=== PATIENT | female | born 1940 | race Caucasian/White ===

== ENCOUNTER 2020-05-04 10:02 | Outpatient (REF) | payer MEDICARE, BC, SELFPAY ==
[2020-05-04 11:39] LABS: Hematocrit 43.1 % (37-47); Hemoglobin 13.8 g/dl (12.0-16.0); Mean Corpuscular Volume 93.7 fL (80-98); Mean Platelet Volume 10.6 fL (9.4-12.3); Platelet Count 212 X10*3/uL (160-400); Red Cell Distribution Width 12.7 % (11.0-16.0); White Blood Count 6.8 X10*3/uL (4.8-10.8)
[2020-05-04 11:45] LABS: Alanine Aminotransferase 15 U/L (0-31); Albumin Level 4.3 g/dL (3.5-5.0); Alkaline Phosphatase 53 U/L (39-117); Anion Gap 13 (12-20); Aspartate Amino Transferase 19 U/L (5-31); Bilirubin Total 0.7 mg/dL (0.0-1.0); Blood Urea Nitrogen 14 mg/dL (9-16); Calcium 9.2 mg/dL (8.4-10.2); Carbon Dioxide 29 mmol/L (22-29); Chloride 102 mmol/L (96-108); Estimated Glomerular Filt Rate > 60; Glucose Fasting 93 mg/dL (60-99); Iron 103 mcg/dL (30-160); Percent Iron Saturation 31 % (15-50); Potassium 4.4 mmol/l (3.3-5.1); Sodium 140 mmol/L (135-145); Total Iron Binding Capacity 332 mcg/dL (228-428); Total Protein 7.6 g/dL (6.5-8.0); Unsaturated Iron Binding 229 ug/dL
[2020-05-04 12:07] LABS: Thyroid Stimulating Hormone 1.45 mIU/mL (0.32-4.0); Vitamin D 25-OH Total 39.4 ng/mL (>30)
[2020-05-04 12:35] LABS: Folate > 20.0 ng/mL (> or = 4.0); Vitamin B12 1060 pg/mL (200-900)
== END 2020-05-04 10:03 | disposition home or self-care (01) ==
LOC: HO.HMGCLDS 10:02
PROVIDERS: PCP Internal Medicine; Visit Provider Internal Medicine
DX: M81.0 Age-related osteoporosis without current pathological fracture (principal); R53.83 Other fatigue; L65.9 Nonscarring hair loss, unspecified; R00.2 Palpitations
CPT/HCPCS: 36415; 80053; 82306; 82607; 82746; 83540; 84443; 85027

== ENCOUNTER 2021-09-03 13:26 | Outpatient (REF) | payer MEDICARE, BC, SELFPAY ==
[2021-09-03 13:43] LABS: Appearance Urine HAZY; Color Urine YELLOW; Glucose Urine UA NEG (NEG); Leukocyte Esterase Urine 1+ (NEG); Nitrite Urine NEG (NEG); Specific Gravity - Urine 1.025 (1.005-1.025); UACC Culture Trigger YES; Urine Blood 3+ (NEG); Urine Ketones NEG (NEG); Urine Protein 1+ MG/DL (NEG-TRACE)
[2021-09-03 13:50] LABS: RBC Urine 30-49 /HPF (0)
[2021-09-03 13:51] LABS: Bacteria Urine 2+ /LPF; Mucus Urine 1+ /LPF; Squamous Epithelial Cell Urine TRACE /LPF
== END 2021-09-03 13:27 | disposition home or self-care (01) ==
LOC: HO.LNP 13:26
PROVIDERS: Visit Provider Physician Assistant Medical
DX: R30.0 Dysuria (principal)
CPT/HCPCS: 81001; 87086; 87088; 87186

== ENCOUNTER 2021-12-13 11:22 | Outpatient (REF) | payer MEDICARE, BC, SELFPAY ==
--- NOTE | ~2021-12-13 | US_ITS ---
EXAMINATION: US PELVIS LIMITED (BLADDER) CLINICAL INFORMATION: Other difficulties with micturition. Slow urinary stream. COMPARISON: None TECHNIQUE: Real-time imaging of the bladder. FINDINGS: BLADDER: Well distended with echogenic floating debris in the bladder. Bilateral ureteral jets are demonstrated. Prevoid bladder volume is 492 mL. Postvoid bladder volume is 41.8 mL. US/US bladder IMPRESSION: Distended bladder with echogenic floating debris. Small postvoid bladder volume measuring 41.8 mL.
== END 2021-12-13 11:23 | disposition home or self-care (01) ==
LOC: HO.HMGCX 11:22
PROVIDERS: PCP Internal Medicine; Visit Provider Internal Medicine
DX: R39.198 Other difficulties with micturition (principal)
CPT/HCPCS: 76857

== ENCOUNTER 2022-05-23 09:54 | Outpatient (REF) | payer MEDICARE, BC, SELFPAY ==
--- NOTE | ~2022-05-23 | XR_ITS ---
EXAMINATION: XR CHEST CLINICAL INFORMATION: Cough COMPARISON: None TECHNIQUE: 2 views of the chest were obtained. FINDINGS: The cardiac silhouette is upper normal in size. Hilar and mediastinal contours are unremarkable. The lungs are well inflated. There are increased bronchial markings suggestive of bronchitis. There are small areas of increased lung markings, particularly in the lateral right upper lung probably in the right upper lobe and adjacent to the left heart border questionable for areas of bronchopneumonia. There is no pleural effusion or pneumothorax. There are degenerative changes of the spine. XR/XR chest 2V IMPRESSION: Bronchitis and probable bronchopneumonia.
== END 2022-05-23 09:55 | disposition home or self-care (01) ==
LOC: HO.HMGCX 09:54
PROVIDERS: PCP Internal Medicine; Visit Provider Internal Medicine
DX: I35.1 Nonrheumatic aortic (valve) insufficiency (principal)
CPT/HCPCS: 71046

== ENCOUNTER 2022-06-12 10:43 | Outpatient (REF) | payer MEDICARE, BC, SELFPAY ==
--- NOTE | ~2022-06-12 | XR_ITS ---
EXAMINATION: XR CHEST CLINICAL INFORMATION: Bronchitis. COMPARISON: 05/23/2022 TECHNIQUE: 2 views of the chest were obtained. FINDINGS: Increased bronchial markings particularly in the right lung likely are chronic and reflective of chronic bronchial irritation. Scarring at the left base stable. I do not see evidence of an acute consolidation or pleural effusion. Heart size is normal with normal caliber pulmonary XR/XR chest 2V vessels. IMPRESSION: Stable patchy airspace opacities right midlung and left base. These are probably chronic.
== END 2022-06-12 10:44 | disposition home or self-care (01) ==
LOC: HO.HMGCX 10:43
PROVIDERS: PCP Internal Medicine; Visit Provider Internal Medicine
DX: J40 Bronchitis, not specified as acute or chronic (principal)
CPT/HCPCS: 71046

== ENCOUNTER → 2022-10-12 10:47 | Outpatient (BNVA) | payer MEDICARE, BC, SELFPAY | PROVIDERS: PCP Internal Medicine; Visit Provider Hospitalist | DX: R91.8 Other nonspecific abnormal finding of lung field (principal); J47.9 Bronchiectasis, uncomplicated; J84.9 Interstitial pulmonary disease, unspecified; M35.9 Systemic involvement of connective tissue, unspecified | CPT/HCPCS: 99202 ==

== ENCOUNTER 2022-10-24 09:47 | Outpatient (REF) | payer MEDICARE, BC, SELFPAY ==
--- NOTE | 2022-10-24 15:18 | PFT_ITS ---
Forced vital capacity 84%, FEV1 89%, FEV1/FVC ratio is 78. RCP68-58 107% and MVV is 99%. Post bronchodilator therapy there is slight improvement in CPB65-06. No other significant change. Total lung capacity 91%. Residual volume 95%. Diffusion capacity 64% but DL/VA is 84%, which is normal. CONCLUSION: Normal pulmonary function test. No evidence of obstructive or restrictive pulmonary disorder. MD LUIZ Horta/MODL / [id number]
== END 2022-10-24 09:48 | disposition home or self-care (01) ==
LOC: HO.RESP 09:47
PROVIDERS: PCP Internal Medicine; Visit Provider Hospitalist
DX: J47.9 Bronchiectasis, uncomplicated (principal); J84.9 Interstitial pulmonary disease, unspecified
CPT/HCPCS: 94060; 94727; 94729

== ENCOUNTER → 2022-12-14 13:17 | Outpatient (BNVA) | payer MEDICARE, BC, SELFPAY | PROVIDERS: PCP Internal Medicine; Visit Provider Hospitalist | DX: R91.8 Other nonspecific abnormal finding of lung field (principal); J84.9 Interstitial pulmonary disease, unspecified; J47.9 Bronchiectasis, uncomplicated; M35.9 Systemic involvement of connective tissue, unspecified; M35.02 Sjogren syndrome with lung involvement; R13.10 Dysphagia, unspecified | CPT/HCPCS: 99212 ==

== ENCOUNTER 2022-12-15 15:23 | Outpatient (REF) | payer MEDICARE, BC, SELFPAY | END 2022-12-15 15:24 | disposition home or self-care (01) | LOC: HO.LAB 15:23 | PROVIDERS: Visit Provider Internal Medicine | DX: N39.498 Other specified urinary incontinence (principal) | CPT/HCPCS: 87086; 87088; 87186 ==

== ENCOUNTER 2023-03-13 14:49 | Outpatient (AMB) | payer MEDICARE, BC, SELFPAY ==
[2023-03-13 14:58] VITALS: BP 138/72; TEMP 36.8; BMI 23.6
--- NOTE | 2023-03-13 14:58 | A.OFFVIS_ITS ---
Intake Vital Signs 03/13/23 14:58 Height 5 ft 6 in Weight 146 lb 6.191 oz BMI 23.6 BP 138/72 Blood Pressure Location Rt brachial Position Sitting Temp 98.2 F Temp Source Skin Intake Visit Reasons: SS Intake Note: New pt presents today to discuss Sjogren's. Disability Program Navigator Required: No Accompanied by: Spouse Allergies levofloxacin [Levaquin] Allergy (Unknown, Verified 03/13/23 14:59) rash Sulfa (Sulfonamide Antibiotics) Allergy (Unknown, Verified 03/13/23 14:59) very sick sulfacetamide Allergy (Unknown, Verified 03/13/23 14:59) very sick tetracycline Allergy (Unknown, Verified 03/13/23 14:59) rash Medication List - Last Reconciled 03/13/23 by Christina Oviedo MD ascorbate calcium (vitamin C) 500 mg PO DAILY bimatoprost 0.03% (Latisse) 1 appl topical DAILY biotin 1,000 mcg PO DAILY carvedilol 3.125 mg PO BID cholecalciferol (vitamin D3) 25 mcg PO DAILY cranberry extract 1,300 mg PO DAILY estradiol 10 mcg vaginal 2XW fluoride (sodium) 1.1% (PreviDent 5000 Booster Plus) 1 appl dental BEDTIME eyvgwvol-rsndd-efy 2-C-D3-andrew 750-30-1,000-1 ks-av-zhct-mg (Yzdufgtmgud-Erzvulpvafk-EUF + vitD) tabs PO hydroxychloroquine (Plaquenil) 200 mg PO DAILY 30 days mirabegron ER 25 mg PO DAILY nitrofurantoin monohyd/m-cryst 100 mg (Macrobid) 100 mg PO Q12H 7 days nitrofurantoin monohyd/m-cryst 100 mg (Macrobid) 100 mg PO Q12H 7 days omega-3 fatty acids 1,000 mg PO DAILY zoledronic cccs-oeviccpd-nwmav 5 mg/100 mL (Reclast) IV HPI HPI Comments History of Present Illness Details This is an 82-year-old female was referred for evaluation of a connective tissue disease. In 1975 patient was evaluated by channel cementer for a connective tissue disorder. At that time patient fevers, joint pains, skin rashes, Raynaud's. She was diagnosed with SLE. Over time her symptoms self- resolved except for the Raynaud's. Patient stated that she has been managing the Raynaud's conservatively. She denies ever having any digital tip ulcers. She is able to reverse the Raynaud's episodes with putting her hands under warm water. Usually it reverses in a few minutes. These episodes happen in the colder winter months. Not currently. She did not require any treatment. Over the years she had some narrowing of her mouth opening. In 2003 patient started having some difficulty swallowing. Large pills would get stuck. She had an EGD back then. Over the last 2 years patient has been having a cough, usually worse in the morning. Associated with minimal shortness of breath. She ultimately had a CT chest which showed some findings suggestive of pulmonary fibrosis. She was evaluated by pulmonology and referred to Rheumatology. Also patient has had dry eyes for many years. She uses lubricating ointment at night and uses refresh artificial tears once or twice a day. She does not recall ever being on Restasis. She denies any weight loss. Denies any joint pain. Denies any skin thickening. She is unaware of history of DVT/PE. Unaware of any family history of autoimmune rheumatic disease [facility] Medical History (Updated 03/13/23 @ 16:31 by Christina Oviedo MD) Abnormal mammogram of right breast Annual physical exam Anticardiolipin antibody syndrome Aortic insufficiency Atrophic vaginitis Bronchiectasis Connective tissue disease Decreased urine stream Dysphagia Fatigue H/O bone density study Hair loss History of mammogram ILD (interstitial lung disease) Mammogram normal Mitral regurgitation Normal colonoscopy Osteoporosis Palpitations Screening for viral disease Sjogren's syndrome with lung involvement Skin cancer, basal cell Thrombophlebitis Surgical History H/O colonoscopy No pertinent past surgical history Family History Father No problems noted. Mother No problems noted. Sister No problems noted. Social History Household Members: Spouse Housing: House Alcohol intake: current Alcohol intake frequency: does not drink Patient Tobacco Use Status: Never used Tobacco e-Cigarette/Vaping Use: Never Used Current occupational status: retired Cognitive needs: No Hearing needs: No Vision needs: Yes Female Reproductive History Menstrual Total pregnancies: 3 Ab induced: 0 Ab spontaneous: 0 Review of Systems Eyes Reports dry eyes ENT Reports dysphagia and Reports dry mouth Resp Reports cough GI Reports dysphagia Reports vaginal dryness Musc Denies arthralgias and Denies stiffness Skin/Breast Reports alopecia Psych Reports anxiety Physical Exam Vital Signs: Last Vital Signs Temp 98.2 F 03/13/23 14:58 BP 138/72 03/13/23 14:58 BMI result Body Mass Index 23.6 Const General: cooperative, healthy appearing and comfortable Nutritional Appearance: average body habitus Orientation/consciousness: patient oriented x3 Limitations: no limitations HEENT Other: Slightly reduced mouth opening Head: Yes normocephalic and Yes atraumatic Mouth: moist mucous membranes Resp Effort & Inspection: normal respiratory effort and able to speak in complete sentences Auscultation: diminished lung sounds bilateral in the lower lung mullen Cardio Rate: regular rate Rhythm: regular rhythm GI Inspection: No distended Palpation (GI): Soft to palpation Skin General skin exam: no rashes or lesions noted Neuro General: patient oriented x3 Extrem Other: No significant skin thickening Right ring finger with very mildly dilated loops. Bilateral big toe Nailfold capillaroscopy with dilated loops No active synovitis Results Reviewed Results Reviewed: Labs 10/2022? ESR 28 SHIVA 1-80 speckled Toñito normal CCP negative QuantiFERON negative SSA 6.9 ( 0.2-.0) SSB negative? Scl 70 -ve Immunoglobulins normal Barium swallow 01/2023? Impression:? Moderate esophageal dysmotility with significant internal esophageal residuals Small type 1 hiatal hernia with associated spontaneous gastroesophageal reflux CT chest without contrast 08/31 Impression 1. Mildly ectatic ascending aorta measuring up to 4.2 cm? 2. Scattered reticulonodular opacities bilaterally, measuring up to 1.8 cm as well as additional more discrete pulmonary nodules measuring up to 0.6 cm.? 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 Correlate with any clinical findings of active infections and/or prior CT imaging to assess for stability.?? In absence of any prior studies to show long-term stability, recommend follow-up CT chest in 3 months to assess for stability.?? 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 Conclusions 1. Normal left ventricular cavity size with mild, concentric left ventricular hypertrophy.? Normal systolic function and regional wall motion with an ejection fraction of 55-60%? 2. Normal right ventricular size and systolic function.?? 3. Trileaflet aortic valve with mildly thickened leaflets.? Mild to moderate aortic insufficiency.? No aortic stenosis.?? 4. Dilated aortic root and ascending aorta 4.2 cm as above.?? 5. Normal pulmonary artery systolic pressure DEXA 08/2019? AP spine T-score-0.5? Right Femoral neck T-score-2.4? Right Total hip T-score -1.2 Major osteoporosis fracture FRAX 30%? Hip fracture 20% Spirometry 10/2022? 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 Upon evaluation patient has reduced mouth opening, chronic dry eyes, intermittent dry mouth, Raynaud's, interstitial lung disease years, esophageal dysmotility. Labs showed a positive anti SSA in high titers Patient is currently evaluated by Pulmonary for an underlying lung infection. At this point patient is managing her Raynaud's with conservative measures. I advised patient to try to sleep more elevated to reduce the likelihood of silent aspiration. She is being followed up by Pulmonary for an underlying infection. Mycobacterial testing was done and is negative however no deep cultures were obtained. Will continue to monitor patient's lung function. Will continue to monitor patient along with pulmonary and can consider adding immunosuppressives such as CellCept for ild in the future. Check labs to evaluate for overlap with other autoimmune diseases. Follow-up in 3 months Plan I spent 62 minutes reviewing patient's chart, evaluating patient, ordering diagnostic workup, counseling patient and documenting in the chart Orders: Orders Protein Creatinine Ratio, Ur Today M34.9 - Systemic sclerosis, unspecified Complement C3 Today M34.9 - Systemic sclerosis, unspecified Complement C4 Today M34.9 - Systemic sclerosis, unspecified Anti DNA DS Antibody Today M34.9 - Systemic sclerosis, unspecified Anti Extractable Nuclear Ag Today M34.9 - Systemic sclerosis, unspecified Scleroderma 12 Panel Today M34.9 - Systemic sclerosis, unspecified UA w Microscopic Today M34.9 - Systemic sclerosis, unspecified Immunofixation Pnl, Serum Today M34.9 - Systemic sclerosis, unspecified Protein Electrophoresis, Serum Today M34.9 - Systemic sclerosis, unspecified Hepatitis A,B,C Profile Today Z11.59 - Encounter for screening for other viral diseases Beta-2 Glycoprotein Antibody Today D68.61 - Antiphospholipid syndrome Cardiolipin Antibodies Today D68.61 - Antiphospholipid syndrome Lupus Anticoagulant Panel Today D68.61 - Antiphospholipid syndrome Coding Level of Care Code New Pt Level 5 (20956) Diagnoses Overlap syndrome M35.1
== END 2023-03-13 15:55 | disposition home or self-care (01) ==
PROVIDERS: PCP Internal Medicine; Visit Provider Student in an Organized Health Care Education/Training Program
DX: M34.89 Other systemic sclerosis (principal); M35.1 Other overlap syndromes
CPT/HCPCS: 99205

== ENCOUNTER → 2023-03-13 14:49 | Outpatient (BNVA) | payer MEDICARE, BC, SELFPAY | PROVIDERS: PCP Internal Medicine; Visit Provider Student in an Organized Health Care Education/Training Program | DX: M35.1 Other overlap syndromes (principal) | CPT/HCPCS: 99202 ==

== ENCOUNTER 2023-03-16 13:35 | Outpatient (AMB) | payer MEDICARE, BC, SELFPAY ==
[2023-03-16 13:52] VITALS: PULSE 77; O2SAT 97; BMI 23.6
--- NOTE | 2023-03-16 13:52 | MHC.OFFVIS ---
Intake Vital Signs 03/16/23 13:52 Height 5 ft 6 in Weight 146 lb 6.191 oz BMI 23.6 Pulse 77 Pulse Source Pulse Oximeter Pulse Oximetry (%) 97 Oxygen Delivery Method Room Air Intake Visit Reasons: barium swallow follow up Allergies levofloxacin [Levaquin] Allergy (Unknown, Verified 03/16/23 13:54) rash Sulfa (Sulfonamide Antibiotics) Allergy (Unknown, Verified 03/16/23 13:54) very sick sulfacetamide Allergy (Unknown, Verified 03/16/23 13:54) very sick tetracycline Allergy (Unknown, Verified 03/16/23 13:54) rash HPI HPI Comments History of Present Illness Details The patient is an 82-year-old woman presenting with abnormal CT scan of the chest. The patient states many years ago she was evaluated at [facility] for a connective tissue disease. At the time was not clear if this was a mixed connective tissue condition. Her symptoms however improved dramatically and the patient did not require any more follow-up. More recently since 2020 the patient started developing worsening cough, nonproductive in nature in the morning mild in severity and subsequently in the evening she will notice and also some coughing. But he did really limit her respiratory capacity and her activities of daily living. She did follow-up with her primary care doctor and she did comment on the cough and she had an x-ray done back in May that was found to be abnormal with some bronchitis looking airways with peribronchial coughing and also some nodular densities. Patient had a repeat chest x-ray after treating her with antibiotics and showed some improvement of the peribronchial coughing, but, she still had the nodular densities in some interstitial changes. Therefore the patient underwent a CT scan of the chest at [facility] which we personally reviewed. The CT scan was pretty involved with significant reticulonodular densities in the periphery consistent with pulmonary fibrosis affecting her left lung more than her right lung in the briefly but also in the bases. In addition to this the patient had evidence of bronchiectasis tree in bud in addition to this nodular densities on her right lung more than the left. The etiology of these nodular densities some clear at this time although smoldering infections is in the differential. On further questioning she denies any mold in the house. She has had a CT in the past but nothing recent. She does have allergies to pollen sometimes. She has an allergy testing. The patient denies any other exposures to fumes or toxins although she lived in a house of smokers and had significant secondhand smoke to she left her home. She does complain of some difficulty swallowing. On her CT scan with his see dilations of the esophagus. She also has a small mouth in addition to Raynaud's phenomenon although the related to potential connective tissue conditions. She will require additional blood work and also a sputum culture for AFB to assess her for non tuberculosis mycobacterial infections. 12/14/2022 the patient is here for a pulmonary follow-up visit. The patient overall is doing about the same. Continues to have issues with cough. Typically nonproductive in nature worse in the morning. We were able to get a sputum for AFB which was negative. She could not get a sample good enough for sputum culture for Gram stain. Patient did have a repeat CT scan of the chest again demonstrating the pulmonary nodules and also the reticular changes consistent pulmonary fibrosis. No significant changes when compared to her CT scan from August. The patient also had blood work demonstrating the positive SHIVA and subsequently positive Sjogren's antibodies. With a positive SSA. The patient does complaint of dry eyes and dry mouth. She does not have a medical record administrator at this time. 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 Therefore is reasonable to start treating her with Plaquenil. At least there is no evidence of any ground-glass opacities or evidence of active disease. Some of the nodular densities however appear to be more infectious in appearance. Although she has a negative AFB culture this is usually not enough. We did talk about a bronchoscopy the patient is not interested at this time. Will plan to repeat the sputum culture. If the sputum culture continues to be negative if the patient does need to start immunosuppressive therapy then at point I would make a point to try to get deep cultures to rule out infection and avoid worsening smoldering infections on immunosuppressive therapy. In addition to this the patient is having a difficulty time swallowing. I heard the esophagus is a dilated on her CT scan again. This suggests some degree of dysmotility or achalasia. 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 03/16/2023 the patient is here for pulmonary follow-up visit. She continues to be about the same. Does have a nonproductive cough intermittently. Mild in severity. 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 Her barium swallows indeed it appeared that she had tertiary contractions but also the barium became stagnant midesophagus. She states that her GI doctor retired. Will send her to a GI doctor for the same practice since she already has records there. The patient also had sputum cultures sent for AFB and which was positive. She has non tuberculosis mycobacterial disease which goes along with her significant bronchiectasis. She also has interstitial lung disease noted on her CT scan her. May be multifactorial. The patient will be provided with an Acapella valve. Will help her to learn how to use it this will provide her some relief of mucous plugging and hopefully provide us with a better sample. Will hold off on treating the mycobacterial disease as of yet specially since be very difficult for the patient to tolerate the therapy. Will go ahead and request a 2nd sputum to confirm the findings and also will request a repeat CT scan to address her significant pulmonary nodules interstitial lung disease. [facility] Medical History (Updated 03/18/23 @ 23:39 by Danilo Farnsworth MD) Mycobacterial disease Anticardiolipin antibody syndrome Screening for viral disease Dysphagia Sjogren's syndrome with lung involvement Connective tissue disease Bronchiectasis ILD (interstitial lung disease) Decreased urine stream Annual physical exam Abnormal mammogram of right breast Mitral regurgitation Aortic insufficiency Normal colonoscopy Mammogram normal Hair loss Fatigue Skin cancer, basal cell History of mammogram H/O bone density study Osteoporosis Thrombophlebitis Atrophic vaginitis Palpitations Surgical History H/O colonoscopy No pertinent past surgical history Family History Father No problems noted. Mother No problems noted. Sister No problems noted. Social History Household Members: Spouse Housing: House Alcohol intake: current Alcohol intake frequency: does not drink Patient Tobacco Use Status: Never used Tobacco e-Cigarette/Vaping Use: Never Used Current occupational status: retired Cognitive needs: No Hearing needs: No Vision needs: Yes Review of Systems Const Denies fever(s) Eyes Reports dry eyes ENT Reports dysphagia and Denies mouth lesions Card Denies chest pain Resp Denies chest congestion, Reports cough and Denies wheezing GI Reports dysphagia Musc Reports myalgias and Reports stiffness Skin/Breast Denies rash Neuro Reports no additional complaints Endo Reports no additional complaints Valentino/Lymph Denies easy bleeding, Denies easy bruising and Denies lymphadenopathy Aller/Immun Denies wheezing Physical Exam Vital Signs: Last Vital Signs Pulse 77 03/16/23 13:52 Pulse Ox 97 03/16/23 13:52 Oxygen Delivery Method Room Air 03/16/23 13:52 BMI result Body Mass Index 23.6 Const General: no acute distress HEENT Head: Yes normal to inspection Ears: hearing grossly normal bilaterally Neck Neck: Yes no lymphadenopathy and Yes supple Chest Chest palpation & inspection: normal inspection of the chest Resp Effort & Inspection: normal respiratory effort Auscultation: diminished lung sounds Cardio Rhythm: regular rhythm Heart sounds: S1 normal heart sound present and S2 normal heart sound present GI Palpation (GI): Soft to palpation Auscultation: normal bowel sounds Skin General skin exam: no rashes or lesions noted Extrem General: Yes no clubbing, cyanosis or edema and Yes other (sclerodactaly) Assessment & Plan Assessment & Plan (1) Lung nodules: Comment: on chest CT 08/31 Code(s): R91.8 - Other nonspecific abnormal finding of lung field (2) Bronchiectasis: Code(s): J47.9 - Bronchiectasis, uncomplicated Qualifiers: Bronchiectasis type: uncomplicated Qualified Code(s): J47.9 - Bronchiectasis, uncomplicated (3) ILD (interstitial lung disease): Code(s): J84.9 - Interstitial pulmonary disease, unspecified (4) Connective tissue disease: Code(s): M35.9 - Systemic involvement of connective tissue, unspecified (5) Dysphagia: Code(s): R13.10 - Dysphagia, unspecified Qualifiers: Dysphagia type: esophageal phase Qualified Code(s): R13.19 - Other dysphagia (6) Sjogren's syndrome with lung involvement: Code(s): M35.02 - Sjogren syndrome with lung involvement (7) Mycobacterial disease: Code(s): A31.9 - Mycobacterial infection, unspecified Plan repeat Sputum for AFB and C&S GI referral F/U with Rheumatology CPT with acapella valve, I did request she call the office when she receives it to assist her repeat CT chest to assess progression F/U 3 months Orders: Orders CT chest wo IV con 06/06/23 R91.8 - Other nonspecific abnormal finding of lung field Sputum Cult + Gram stain 03/16/23 J47.9 - Bronchiectasis, uncomplicated Acid-fast Culture + Smear 03/16/23 J47.9 - Bronchiectasis, uncomplicated Referrals Gastroenterology Referral R13.19 - Other dysphagia Coding Level of Care Code Est Pt Level 5 (73739) Diagnoses Lung nodules R91.8 Bronchiectasis without complication J47.9 Bronchiectasis type: uncomplicated ILD (interstitial lung disease) J84.9 Connective tissue disease M35.9 Esophageal dysphagia R13.19 Dysphagia type: esophageal phase Sjogren's syndrome with lung involvement M35.02 Mycobacterial disease A31.9 Time Spent (min) 50
== END 2023-03-16 14:30 | disposition home or self-care (01) ==
PROVIDERS: PCP Internal Medicine; Visit Provider Hospitalist
DX: R91.8 Other nonspecific abnormal finding of lung field (principal); J47.9 Bronchiectasis, uncomplicated; J84.9 Interstitial pulmonary disease, unspecified; M35.9 Systemic involvement of connective tissue, unspecified
CPT/HCPCS: 99215

== ENCOUNTER → 2023-03-16 13:35 | Outpatient (BNVA) | payer MEDICARE, BC, SELFPAY | PROVIDERS: PCP Internal Medicine; Visit Provider Hospitalist | DX: R91.8 Other nonspecific abnormal finding of lung field (principal); J47.9 Bronchiectasis, uncomplicated; J84.9 Interstitial pulmonary disease, unspecified; R13.19 Other dysphagia; M35.02 Sjogren syndrome with lung involvement; A31.9 Mycobacterial infection, unspecified | CPT/HCPCS: 99212 ==

== ENCOUNTER 2023-04-26 13:27 | Outpatient (REF) | payer MEDICARE, BC, SELFPAY ==
--- NOTE | ~2023-04-26 | US_ITS ---
EXAMINATION: US VENOUS ULTRASOUND WITH DOPPLER LOWER EXTREMITY, RIGHT CLINICAL INFORMATION: Pain in right leg. COMPARISON: None available. TECHNIQUE: Ultrasound of the deep veins is performed from the hip to the calf with compression sonography and color and pulse Doppler assessment. Spectral analysis with color-flow imaging is performed. FINDINGS: There is normal venous compression and respiratory variation and augmented flow. The visualized common femoral vein, superficial femoral vein, profunda femoral vein, popliteal vein, and the trifurcation region shows no evidence of deep venous thrombosis. There is no significant popliteal fossa cyst. There is a partial clot seen in the right saphenous vein suggestive of superficial saphenous vein in the proximal and mid calf region suggestive of thrombophlebitis. If the patient's symptoms persist, followup ultrasound in 5 days 7 days might be of value to exclude proximal propagation from a non-visualized calf vein. US/US venous duplex LE RT IMPRESSION: 1. No DVT demonstrated in the right lower extremity. 2. Partial clot seen in the right saphenous vein in the proximal calf region. Thrombophlebitis in superficial saphenous vein in the proximal and midcalf region.
== END 2023-04-26 13:28 | disposition home or self-care (01) ==
LOC: HO.HMGCX 13:27
PROVIDERS: PCP Internal Medicine; Visit Provider Internal Medicine
DX: M79.604 Pain in right leg (principal)
CPT/HCPCS: 93971

== ENCOUNTER 2023-05-08 10:17 | Outpatient (AMB) | payer MEDICARE, BC, SELFPAY ==
[2023-05-08 11:08] VITALS: BP 118/60; PULSE 80; O2SAT 97
--- NOTE | 2023-05-08 11:08 | A.OFFVIS_ITS ---
Intake Vital Signs 05/08/23 11:08 BP 118/60 Blood Pressure Location Lt brachial Position Sitting Pulse 80 Pulse Source Pulse Oximeter Pulse Oximetry (%) 97 Oxygen Delivery Method Room Air Intake Visit Reasons: acapella teaching Allergies levofloxacin [Levaquin] Allergy (Unknown, Verified 05/08/23 11:08) rash Sulfa (Sulfonamide Antibiotics) Allergy (Unknown, Verified 05/08/23 11:08) very sick sulfacetamide Allergy (Unknown, Verified 05/08/23 11:08) very sick tetracycline Allergy (Unknown, Verified 05/08/23 11:08) rash Medication List - Last Reconciled 05/08/23 by Katelin Golden LPN ascorbate calcium (vitamin C) 500 mg PO DAILY bimatoprost 0.03% (Latisse) 1 appl topical DAILY biotin 1,000 mcg PO DAILY carvedilol 3.125 mg PO BID cholecalciferol (vitamin D3) 25 mcg PO DAILY cranberry extract 1,300 mg PO DAILY estradiol 10 mcg vaginal 2XW fluoride (sodium) 1.1% (PreviDent 5000 Booster Plus) 1 appl dental BEDTIME imharsxa-rlvgd-opa 2-C-D3-andrew 750-30-1,000-1 ko-ot-ouln-mg (Wbfurnphhrt-Vaoqdxahwho-LWK + vitD) tabs PO hydroxychloroquine (Plaquenil) 200 mg PO DAILY 30 days mirabegron ER 25 mg PO DAILY nitrofurantoin monohyd/m-cryst 100 mg (Macrobid) 100 mg PO Q12H 7 days nitrofurantoin monohyd/m-cryst 100 mg (Macrobid) 100 mg PO Q12H 7 days omega-3 fatty acids 1,000 mg PO DAILY zoledronic rqzl-zatoemzt-hazps 5 mg/100 mL (Reclast) IV HPI acapella teaching HPI Details Maureen Hale is in today for an Acapella teaching. She was instructed on how to use and clean the device as well as alfaro coughing to clear mucous. She states she does not have any questions at this time. [facility] Medical History (Updated 04/25/23 @ 14:15 by Yaneli James MD) Mycobacterial disease Anticardiolipin antibody syndrome Screening for viral disease Dysphagia Sjogren's syndrome with lung involvement Connective tissue disease Bronchiectasis ILD (interstitial lung disease) Decreased urine stream Annual physical exam Abnormal mammogram of right breast Mitral regurgitation Aortic insufficiency Normal colonoscopy Mammogram normal Hair loss Fatigue Skin cancer, basal cell History of mammogram H/O bone density study Osteoporosis Thrombophlebitis Atrophic vaginitis Palpitations Surgical History H/O colonoscopy No pertinent past surgical history Family History Father No problems noted. Mother No problems noted. Sister No problems noted. Social History Household Members: Spouse Housing: House Alcohol intake: current Alcohol intake frequency: does not drink Patient Tobacco Use Status: Never used Tobacco e-Cigarette/Vaping Use: Never Used Current occupational status: retired Cognitive needs: No Hearing needs: No Vision needs: Yes Assessment & Plan Assessment & Plan (1) Bronchiectasis: Code(s): J47.9 - Bronchiectasis, uncomplicated Qualifiers: Bronchiectasis type: uncomplicated Qualified Code(s): J47.9 - Bronchiectasis, uncomplicated Coding Level of Care Code Established Pt Est Pt Level 1 (44119) Patient Type Established Diagnoses Bronchiectasis without complication J47.9 Bronchiectasis type: uncomplicated Comment NURSE VISIT ONLY
== END 2023-05-08 11:06 | disposition home or self-care (01) ==
PROVIDERS: PCP Internal Medicine; Visit Provider Hospitalist
DX: J47.9 Bronchiectasis, uncomplicated (principal)

== ENCOUNTER → 2023-05-08 10:17 | Outpatient (BNVA) | payer MEDICARE, BC, SELFPAY | PROVIDERS: PCP Internal Medicine; Visit Provider Hospitalist | DX: J47.9 Bronchiectasis, uncomplicated (principal) | CPT/HCPCS: 99211 ==

== ENCOUNTER 2023-05-24 08:52 | Outpatient (AMB) | payer MEDICARE, BC, SELFPAY ==
--- NOTE | 2023-05-24 08:53 | A.OFFVIS_ITS ---
Intake Vital Signs 05/24/23 08:57 Weight 143 lb BP 114/70 Blood Pressure Location Lt brachial Position Sitting Intake Visit Reasons: SWV G0439 Allergies levofloxacin [Levaquin] Allergy (Unknown, Verified 05/24/23 08:59) rash Sulfa (Sulfonamide Antibiotics) Allergy (Unknown, Verified 05/24/23 08:59) very sick sulfacetamide Allergy (Unknown, Verified 05/24/23 08:59) very sick tetracycline Allergy (Unknown, Verified 05/24/23 08:59) rash Medication List - Last Reconciled 05/24/23 by Yaneli James MD ascorbate calcium (vitamin C) 500 mg PO DAILY bimatoprost 0.03% (Latisse) 1 appl topical DAILY carvedilol 3.125 mg PO BID cholecalciferol (vitamin D3) 25 mcg PO DAILY cranberry extract 1,300 mg PO DAILY estradiol 10 mcg vaginal 2XW fluoride (sodium) 1.1% (PreviDent 5000 Booster Plus) 1 appl dental BEDTIME quzzppgg-xhctv-yso 2-C-D3-andrew 750-30-1,000-1 ou-ha-laur-mg (Glucosamine -Chondroitin-MSM + vitD) tabs PO mirabegron ER 25 mg PO DAILY omega-3 fatty acids 1,000 mg PO DAILY Do you need a note to return to daycare/school/sports/work: No HPI V G0439 HPI Details Initiated the conversation about Advanced Directives. Advanced Directives help? patients prepare for current and future decisions about their medical treatment? and place of care. Discussed with patient that it is a process where a patients? current condition and prognosis are reviewed, their wishes for information? regarding their illness are elicited, and likely medical dilemmas are presented? and options discussed. The form can be amended as needed, reviewed yearly and? make changes as needed IPPE/AWV ? year old presents? for her ? Annual? Wellness Visit, initial visit.? Medical / Social History Reviewed? Past Medical History ?Yes? . ? [facility]? of Care / Care Team list updated ?Yes . ? Surgical/Hospitalization? History ?Yes . ? Current Medications? (including OTC and supplements) ?Yes . ? Family History ?Yes? . ? Tobacco? Control form ?Yes . ? AUDIT-C (Alcohol use) form? ?Yes . ? Illicit drug use in Social? History ?Yes . ? Current diagnosis of? depression? ?No ? Appropriate PHQ2/PHQ9? completed ?Yes . ? Data entered by ?Medical? Injection Operator and reviewed by provider ? Fall Risk ? Fall? History? Have you had any falls with? injury in the past year? ?No . ? Have you had two or more? falls in the past year? ?No . ? Fall Risk Assessment: ?No? falls in the past year . ? HRA filled out by? the patient, reviewed by Provider and scanned. ? IPPE/AWV ? Balance? Romberg? ?Yes . ? Tandem? walk ?Yes . ? Walk and? Turn ?Yes . ? Rise from? sit to stand ?Yes . ?Vision? Corrective? lens ?Yes ? Vision? screen ? Up-to-date, has an appointment [] for vision? screening and glaucoma screening ?Hearing? Whisper? test ?pass .? Initiated the conversation about Advanced Directives. Advanced Directives help? patients prepare for current and future decisions about their medical treatment? and place of care. Discussed with patient that it is a process where a patients? current condition and prognosis are reviewed, their wishes for information? regarding their illness are elicited, and likely medical dilemmas are presented? and options discussed. The form can be amended as needed, reviewed yearly and? make changes as needed Written? Plan?Completed. See Patient? Documents. [facility] Medical History (Updated 05/24/23 @ 15:11 by Yaneli James MD) Mycobacterial disease Screening for viral disease Dysphagia Bronchiectasis ILD (interstitial lung disease) Annual physical exam Abnormal mammogram of right breast Mitral regurgitation Aortic insufficiency Normal colonoscopy Mammogram normal Hair loss Fatigue Skin cancer, basal cell History of mammogram H/O bone density study Osteoporosis Thrombophlebitis Atrophic vaginitis Palpitations Surgical History H/O colonoscopy No pertinent past surgical history Family History Father No problems noted. Mother No problems noted. Sister No problems noted. Social History Household Members: Spouse Housing: House Alcohol intake: current Alcohol intake frequency: does not drink Patient Tobacco Use Status: Never used Tobacco e-Cigarette/Vaping Use: Never Used Current occupational status: retired Cognitive needs: No Hearing needs: No Vision needs: Yes Questionnaire Medicare Wellness Checkup What is your age?: 81 or older What gender do you identify with?: female During the past 4 weeks, how much have you been bothered by emotional problems such as feeling anxious, depressed, irritable, sad or downhearted, and blue?: slightly During the past 4 weeks, has your physical & emotional health limited your social activities with family, friends, neighbors, or groups?: not at all During the past 4 weeks, how much bodily pain have you generally had?: no pain During the past 4 weeks, was someone available to help you if you needed & wanted help?: yes, as much as I wanted During the past 4 weeks, what was the hardest physical activity you could do for at least 2 minutes?: heavy Can you get to places out of walking distance without help? (For eg., can you travel alone on buses, taxis or drive your car?): Yes Can you go shopping for groceries or clothes without someone's help?: Yes Can you prepare your own meals?: Yes Can you do your housework without help?: Yes Because of any health problems, do you need the help of another person with your personal care needs such as eating, bathing, dressing or getting around the house?: No Can you handle your own money without help?: Yes During the past 4 weeks, how would you rate your health in general?: good Mini Mental State Exam (MMSE) Orientation What is the (year) (season) (date) (day) (month)?: year, season, date, day and month Where are we (state) (county) (town or city) (hospital) (floor)?: state, county, town or city, hospital/clinic and floor Registration Name of 3 unrelated objects clearly and slowly, then ask patient to repeat all 3 of them. (1st repeat determines score. Make sure they can repeat all three): object 1, object 2 and object 3 Attention & Calculation (CHOOSE ONE) Ask pt to begin with 100 & count backward by 7. Stop after 5 repeats. If pt cannot ask them to spell the word WORLD backward.: 93 Spell WORLD backwards (DLROW): 5 letters Recall Ask patient to repeat the 3 items from question #3.: object 1, object 2 and object 3 Language Show patient a wristwatch & ask what it is. Repeat for pencil.: watch and pencil Ask the patient to repeat the phrase 'No ifs, ands, or buts' after you.: correct Ask the patient to 'take a piece of paper with their right hand' 'fold paper in half' 'place paper on floor': take paper in right hand, fold paper in half and place paper on floor Print the sentence 'CLOSE YOUR EYES' on a piece. If patient actually closes eyes then score.: followed written direction Give patient a blank piece of paper & ask to write a sentence. Score if it contains a noun & verb.: sentence contains subject and verb Score Score: 30 PHQ-9 Over the last 2 weeks, how often have you been bothered by any of the following problems? 1. Little interest or pleasure in doing things: not at all 2. Feeling down, depressed, or hopeless: not at all 3. Trouble falling or staying asleep, or sleeping too much: several days 4. Feeling tired or having little energy: not at all 5. Poor appetite or overeating: not at all 6. Feeling bad about yourself - or that you are a failure or have let yourself or your family down: not at all 7. Trouble concentrating on things, such as reading the newspaper or watching television: not at all 8. Moving or speaking so slowly that other people could have noticed. Or the opposite - being so fidgety or restless that you have been moving around a lot more than usual: not at all 9. Thoughts that you would be better off or of hurting yourself in some way: not at all Total score: 1 Depression Screening Interpretation: Negative Depression Screening Done: Yes 37255 - PHQ-9 Billing: Yes Source: Developed by Drs. Mike Valladares, Alecia Ryan, Shai Burrell and colleagues, with an educational goldie from [employer]. Review of Systems Const All systems reviewed & are unremarkable except as noted in HPI and below Reports no additional complaints Eyes Reports no additional complaints ENT Reports no additional complaints Card Reports no additional complaints Resp Reports no additional complaints GI Reports no additional complaints Reports no additional complaints Physical Exam Vital Signs: Last Vital Signs BP 114/70 05/24/23 08:57 Const General: no acute distress HEENT Head: Yes normal to inspection Ears: hearing grossly normal bilaterally Neck Neck: Yes no lymphadenopathy and Yes supple Resp Effort & Inspection: normal respiratory effort Auscultation: clear to auscultation bilaterally Cardio Rhythm: regular rhythm Heart sounds: S1 normal heart sound present and S2 normal heart sound present GI Inspection: Yes normal to inspection Palpation (GI): Soft to palpation Percussion: Yes normal to percussion Auscultation: normal bowel sounds Extrem General: Yes no clubbing, cyanosis or edema Assessment & Plan Assessment & Plan (1) Palpitations: Comment: frequent PVC's controlled on Coreg Code(s): R00.2 - Palpitations Plan: cont Coreg (2) Aorta aneurysm: Comment: stable on Echo 07/[address] Code(s): I71.9 - Aortic aneurysm of unspecified site, without rupture (3) Mitral regurgitation: Comment: mild -mod MR, mild AI, ascending aorta 4.6 cm Echo 12/2018, mild -mod AI, mild-mod MR Echo 12/27,Echo 07/31 unchanged Code(s): I34.0 - Nonrheumatic mitral (valve) insufficiency (4) Annual physical exam: Code(s): Z00.00 - Encounter for general adult medical examination without abnormal findings Plan: Well-balanced diet regular physical activity discussed with the patient , return in 6 months Orders: Orders Comprehensive [place]. Panel Fast 6 Months I34.0 - Nonrheumatic mitral (valve) insufficiency, I71.9 - Aortic aneurysm of unspecified site, without rupture, R00.2 - Palpitations Complete Blood Count Auto Diff 6 Months I34.0 - Nonrheumatic mitral (valve) insufficiency, I71.9 - Aortic aneurysm of unspecified site, without rupture, R00.2 - Palpitations TSH reflex Free T4 6 Months I34.0 - Nonrheumatic mitral (valve) insufficiency, I71.9 - Aortic aneurysm of unspecified site, without rupture, R00.2 - P alpitations Lipid Panel 6 Months I34.0 - Nonrheumatic mitral (valve) insufficiency, I71.9 - Aortic aneurysm of unspecified site, without rupture, R00.2 - Palpitations Quality Reporting (2019) Depression/Bipolar (159/160/161/177) PHQ-9: Total score: 1 Coding Level of Care Code Medicare Subsequent (G0439) Diagnoses Palpitations R00.2 Aorta aneurysm I71.9 Mitral regurgitation I34.0 Annual physical exam Z00.00 CPT Codes Advance Care Planning - Time spent: 1-15 minutes, not on file ([id number]) Advance Care Planning Advance Care Planning discussion: Exists, not on file Forms completed: MOLST Time spent: 1-15 minutes, not on file
[2023-05-24 08:57] VITALS: BP 114/70
== END 2023-05-24 15:08 | disposition home or self-care (01) ==
PROVIDERS: PCP Internal Medicine; Visit Provider Internal Medicine
DX: R00.2 Palpitations (principal); I71.9 Aortic aneurysm of unspecified site, without rupture; I34.0 Nonrheumatic mitral (valve) insufficiency; Z00.00 Encounter for general adult medical examination without abnormal findings
CPT/HCPCS: 1124F; G0439

== ENCOUNTER 2023-06-13 08:42 | Outpatient (AMB) | payer MEDICARE, BC, SELFPAY ==
[2023-06-13 08:54] VITALS: BP 132/60; PULSE 77; O2SAT 99; BMI 22.9
--- NOTE | 2023-06-13 08:54 | MHC.OFFVIS ---
Intake Vital Signs 06/13/23 08:54 Height 5 ft 6 in Weight 142 lb BMI 22.9 BP 132/60 Blood Pressure Location Lt brachial Position Sitting Pulse 77 Pulse Source Pulse Oximeter Pulse Oximetry (%) 99 Oxygen Delivery Method Room Air Intake Visit Reasons: CT Chest Results/Pulmonary Nodules Marketing Admin Required: No Allergies levofloxacin [Levaquin] Allergy (Unknown, Verified 06/13/23 08:56) rash Sulfa (Sulfonamide Antibiotics) Allergy (Unknown, Verified 06/13/23 08:56) very sick sulfacetamide Allergy (Unknown, Verified 06/13/23 08:56) very sick tetracycline Allergy (Unknown, Verified 06/13/23 08:56) rash HPI HPI Comments History of Present Illness Details The patient is an 82-year-old woman presenting with abnormal CT scan of the chest. The patient states many years ago she was evaluated at [facility] for a connective tissue disease. At the time was not clear if this was a mixed connective tissue condition. Her symptoms however improved dramatically and the patient did not require any more follow-up. More recently since 2020 the patient started developing worsening cough, nonproductive in nature in the morning mild in severity and subsequently in the evening she will notice and also some coughing. But he did really limit her respiratory capacity and her activities of daily living. She did follow-up with her primary care doctor and she did comment on the cough and she had an x-ray done back in May that was found to be abnormal with some bronchitis looking airways with peribronchial coughing and also some nodular densities. Patient had a repeat chest x-ray after treating her with antibiotics and showed some improvement of the peribronchial coughing, but, she still had the nodular densities in some interstitial changes. Therefore the patient underwent a CT scan of the chest at [facility] which we personally reviewed. The CT scan was pretty involved with significant reticulonodular densities in the periphery consistent with pulmonary fibrosis affecting her left lung more than her right lung in the briefly but also in the bases. In addition to this the patient had evidence of bronchiectasis tree in bud in addition to this nodular densities on her right lung more than the left. The etiology of these nodular densities some clear at this time although smoldering infections is in the differential. On further questioning she denies any mold in the house. She has had a CT in the past but nothing recent. She does have allergies to pollen sometimes. She has an allergy testing. The patient denies any other exposures to fumes or toxins although she lived in a house of smokers and had significant secondhand smoke to she left her home. She does complain of some difficulty swallowing. On her CT scan with his see dilations of the esophagus. She also has a small mouth in addition to Raynaud's phenomenon although the related to potential connective tissue conditions. She will require additional blood work and also a sputum culture for AFB to assess her for non tuberculosis mycobacterial infections. 12/14/2022 the patient is here for a pulmonary follow-up visit. The patient overall is doing about the same. Continues to have issues with cough. Typically nonproductive in nature worse in the morning. We were able to get a sputum for AFB which was negative. She could not get a sample good enough for sputum culture for Gram stain. Patient did have a repeat CT scan of the chest again demonstrating the pulmonary nodules and also the reticular changes consistent pulmonary fibrosis. No significant changes when compared to her CT scan from August. The patient also had blood work demonstrating the positive SHIVA and subsequently positive Sjogren's antibodies. With a positive SSA. The patient does complaint of dry eyes and dry mouth. She does not have a welder gun at this time. 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 Therefore is reasonable to start treating her with Plaquenil. At least there is no evidence of any ground-glass opacities or evidence of active disease. Some of the nodular densities however appear to be more infectious in appearance. Although she has a negative AFB culture this is usually not enough. We did talk about a bronchoscopy the patient is not interested at this time. Will plan to repeat the sputum culture. If the sputum culture continues to be negative if the patient does need to start immunosuppressive therapy then at point I would make a point to try to get deep cultures to rule out infection and avoid worsening smoldering infections on immunosuppressive therapy. In addition to this the patient is having a difficulty time swallowing. I heard the esophagus is a dilated on her CT scan again. This suggests some degree of dysmotility or achalasia. 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 03/16/2023 the patient is here for pulmonary follow-up visit. She continues to be about the same. Does have a nonproductive cough intermittently. Mild in severity. 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 Her barium swallows indeed it appeared that she had tertiary contractions but also the barium became stagnant midesophagus. She states that her GI doctor retired. Will send her to a GI doctor for the same practice since she already has records there. The patient also had sputum cultures sent for AFB and which was positive. She has non tuberculosis mycobacterial disease which goes along with her significant bronchiectasis. She also has interstitial lung disease noted on her CT scan her. May be multifactorial. The patient will be provided with an Acapella valve. Will help her to learn how to use it this will provide her some relief of mucous plugging and hopefully provide us with a better sample. Will hold off on treating the mycobacterial disease as of yet specially since be very difficult for the patient to tolerate the therapy. Will go ahead and request a 2nd sputum to confirm the findings and also will request a repeat CT scan to address her significant pulmonary nodules interstitial lung disease. 06/13/2023 the patient is here for a pulmonary follow-up visit. Overall the patient has been doing little better. She did get the Acapella valve and she has been using it. She has been able to expectorate a lot better. She has been able to clear her lungs more. Denies any shortness breath or any other issues. The patient did have a repeat CT scan of the chest demonstrating stable interstitial lung changes consistent with some degree of pulmonary fibrosis primarily the periphery in the basis in addition to waxing waning pulmonary nodules consistent with her likely mycobacterial disease. Will try to get another sputum culture. He right now will not treat her mycobacterial disease unless her symptoms worsen or if her CT scan worsens. Date fibrotic changes are also stable. I do believe that they are secondary to a connective tissue disease process. If there is any evidence of any activity of the connective tissue disease that should be treated to minimize on the pulmonary manifestations. [facility] Medical History (Updated 06/13/23 @ 16:53 by Danilo Farnsworth MD) Mycobacterial disease Screening for viral disease Dysphagia Bronchiectasis ILD (interstitial lung disease) Annual physical exam Abnormal mammogram of right breast Mitral regurgitation Aortic insufficiency Normal colonoscopy Mammogram normal Hair loss Fatigue Skin cancer, basal cell History of mammogram H/O bone density study Osteoporosis Thrombophlebitis Atrophic vaginitis Palpitations Surgical History H/O colonoscopy No pertinent past surgical history Family History Father No problems noted. Mother No problems noted. Sister No problems noted. Social History Household Members: Spouse Housing: House Alcohol intake: current Alcohol intake frequency: does not drink Patient Tobacco Use Status: Never used Tobacco e-Cigarette/Vaping Use: Never Used Current occupational status: retired Cognitive needs: No Hearing needs: No Vision needs: Yes Review of Systems Const Denies fever(s) Eyes Reports dry eyes ENT Reports dysphagia and Denies mouth lesions Card Denies chest pain Resp Denies chest congestion, Reports cough and Denies wheezing GI Reports dysphagia Musc Reports myalgias and Reports stiffness Skin/Breast Denies rash Neuro Reports no additional complaints Endo Reports no additional complaints Valentino/Lymph Denies easy bleeding, Denies easy bruising and Denies lymphadenopathy Aller/Immun Denies wheezing Physical Exam Vital Signs: Last Vital Signs Pulse 77 06/13/23 08:54 BP 132/60 06/13/23 08:54 Pulse Ox 99 06/13/23 08:54 Oxygen Delivery Method Room Air 06/13/23 08:54 BMI result Body Mass Index 22.9 Const General: no acute distress HEENT Head: Yes normal to inspection Ears: hearing grossly normal bilaterally Neck Neck: Yes no lymphadenopathy and Yes supple Chest Chest palpation & inspection: normal inspection of the chest Resp Effort & Inspection: normal respiratory effort Auscultation: diminished lung sounds Cardio Rhythm: regular rhythm Heart sounds: S1 normal heart sound present and S2 normal heart sound present GI Palpation (GI): Soft to palpation Auscultation: normal bowel sounds Skin General skin exam: no rashes or lesions noted Extrem General: Yes no clubbing, cyanosis or edema and Yes other (sclerodactaly) Assessment & Plan Assessment & Plan (1) Lung nodules: Comment: Chest CT 08/31, 05/2023 waxing and waning Code(s): R91.8 - Other nonspecific abnormal finding of lung field (2) Bronchiectasis: Code(s): J47.9 - Bronchiectasis, uncomplicated (3) ILD (interstitial lung disease): Comment: reticular changes in the periphery/basilar. ?CTD related ILD. No progression 08/31 to 05/31 Code(s): J84.9 - Interstitial pulmonary disease, unspecified (4) Connective tissue disease: Code(s): M35.9 - Systemic involvement of connective tissue, unspecified (5) Dysphagia: Code(s): R13.10 - Dysphagia, unspecified (6) Sjogren's syndrome with lung involvement: Code(s): M35.02 - Sjogren syndrome with lung involvement (7) Mycobacterial disease: Code(s): A31.9 - Mycobacterial infection, unspecified Plan repeat Sputum for AFB and C&S GI and rheumatology following CPT with acapella valve BID repeat CT chest in 1 yr or sooner if worsening symptoms F/U 6 months Orders: Orders Acid-fast Culture + Smear Today A31.9 - Mycobacterial infection, unspecified Coding Level of Care Code Est Pt Level 4 (24151) Diagnoses Lung nodules R91.8 Bronchiectasis J47.9 ILD (interstitial lung disease) J84.9 Connective tissue disease M35.9 Dysphagia R13.10 Sjogren's syndrome with lung involvement M35.02 Mycobacterial disease A31.9 Time Spent (min) 18
== END 2023-06-13 09:23 | disposition home or self-care (01) ==
PROVIDERS: PCP Internal Medicine; Visit Provider Hospitalist
DX: R91.8 Other nonspecific abnormal finding of lung field (principal); J47.9 Bronchiectasis, uncomplicated; J84.9 Interstitial pulmonary disease, unspecified; M35.9 Systemic involvement of connective tissue, unspecified; R13.10 Dysphagia, unspecified; M35.02 Sjogren syndrome with lung involvement; A31.9 Mycobacterial infection, unspecified
CPT/HCPCS: 99214

== ENCOUNTER → 2023-06-13 08:42 | Outpatient (BNVA) | payer MEDICARE, BC, SELFPAY | PROVIDERS: PCP Internal Medicine; Visit Provider Hospitalist | DX: R91.8 Other nonspecific abnormal finding of lung field (principal); J47.9 Bronchiectasis, uncomplicated; J84.9 Interstitial pulmonary disease, unspecified; M35.9 Systemic involvement of connective tissue, unspecified; R13.10 Dysphagia, unspecified; M35.02 Sjogren syndrome with lung involvement; A31.9 Mycobacterial infection, unspecified | CPT/HCPCS: 99212 ==

== ENCOUNTER 2023-08-06 09:11 | Outpatient (AMB) | payer MEDICARE, BC, SELFPAY ==
--- NOTE | 2023-08-06 09:13 | A.OFFVIS_ITS ---
Intake Vital Signs 08/06/23 09:15 Height 5 ft 6 in Weight 144 lb 6.444 oz BMI 23.3 BP 112/62 Blood Pressure Location Lt brachial Position Sitting Pulse 88 Pulse Source Palpation Temp 97.1 F Temp Source Skin Intake Visit Reasons: MCTD Intake Note: Pt last seen 03/13/23, presents today for follow up and test results. [employer] Telephone Clerk Required: No Accompanied by: Self / Same As Patient Allergies levofloxacin [Levaquin] Allergy (Unknown, Verified 08/06/23 09:14) rash Sulfa (Sulfonamide Antibiotics) Allergy (Unknown, Verified 08/06/23 09:14) very sick sulfacetamide Allergy (Unknown, Verified 08/06/23 09:14) very sick tetracycline Allergy (Unknown, Verified 08/06/23 09:14) rash Medication List - Last Reconciled 08/06/23 by Christina Oviedo MD ascorbate calcium (vitamin C) 500 mg PO DAILY bimatoprost 0.03% (Latisse) 1 appl topical DAILY carvedilol 3.125 mg PO BID cholecalciferol (vitamin D3) 25 mcg PO DAILY cranberry extract 1,300 mg PO DAILY estradiol 10 mcg vaginal 2XW fluoride (sodium) 1.1% (PreviDent 5000 Booster Plus) 1 appl dental BEDTIME nvqjsawt-nsozh-ffa 2-C-D3-andrew 750-30-1,000-1 do-cg-yosh-mg (Xzxaiavvxqx-Ucnbffjqtev-EYD + vitD) tabs PO mirabegron ER 25 mg PO DAILY omega-3 fatty acids 1,000 mg PO DAILY HPI HPI Comments History of Present Illness Details 82-year-old female with UCTD returns for follow-up. She states that she is doing well overall. She has no new complaints. She has been using a wedge like pillow and sleeping more elevated. She continues to have intermittent coughing, usually when she wakes up in the morning. Denies any shortness of breath. She has not had any fevers, skin rashes, weight loss. Denies any new or worsening reflux symptoms. Raynaud's symptoms well controlled with conservative measures. Initial history: This is an 82-year-old female was referred for evaluation of a connective tissue disease. In 1975 patient was evaluated by engineering intern for a connective tissue disorder. At that time patient fevers, joint pains, skin rashes, Raynaud's. She was diagnosed with SLE. Over time her symptoms self- resolved except for the Raynaud's. Patient stated that she has been managing the Raynaud's conservatively. She denies ever having any digital tip ulcers. She is able to reverse the Raynaud's episodes with putting her hands under warm water. Usually it reverses in a few minutes. These episodes happen in the colder winter months. Not currently. She did not require any treatment. Over the years she had some narrowing of her mouth opening. In 2003 patient started having some difficulty swallowing. Large pills would get stuck. She had an EGD back then. Over the last 2 years patient has been having a cough, usually worse in the morning. Associated with minimal shortness of breath. She ultimately had a CT chest which showed some findings suggestive of pulmonary fibrosis. She was evaluated by pulmonology and referred to Rheumatology. Also patient has had dry eyes for many years. She uses lubricating ointment at night and uses refresh artificial tears once or twice a day. She does not recall ever being on Restasis. She denies any weight loss. Denies any joint pain. Denies any skin thickening. She is unaware of history of DVT/PE. U naware of any family history of autoimmune rheumatic disease [facility] Medical History Mycobacterial disease Screening for viral disease Dysphagia Bronchiectasis ILD (interstitial lung disease) Annual physical exam Abnormal mammogram of right breast Mitral regurgitation Aortic insufficiency Normal colonoscopy Mammogram normal Hair loss Fatigue Skin cancer, basal cell History of mammogram H/O bone density study Osteoporosis Thrombophlebitis Atrophic vaginitis Palpitations Surgical History H/O colonoscopy No pertinent past surgical history Family History Father No problems noted. Mother No problems noted. Sister Rheumatoid arthritis Social History Household Members: Spouse Housing: House Alcohol intake: current Alcohol intake frequency: does not drink Patient Tobacco Use Status: Never used Tobacco e-Cigarette/Vaping Use: Never Used Current occupational status: retired Cognitive needs: No Hearing needs: No Vision needs: Yes Review of Systems Card Denies dyspnea and Denies dyspnea on exertion Resp Reports cough, Denies dyspnea and Denies dyspnea on exertion Musc Denies arthralgias and Denies stiffness Physical Exam Vital Signs: Last Vital Signs Temp 97.1 F 08/06/23 09:15 Pulse 88 08/06/23 09:15 BP 112/62 08/06/23 09:15 BMI result Body Mass Index 23.3 Const General: cooperative, healthy appearing and comfortable Nutritional Appearance: average body habitus Orientation/consciousness: patient oriented x3 Limitations: no limitations HEENT Other: Slightly reduced mouth opening Head: Yes normocephalic and Yes atraumatic Mouth: moist mucous membranes Resp Effort & Inspection: normal respiratory effort and able to speak in complete sentences Auscultation: diminished lung sounds bilateral in the lower lung mullen Cardio Rate: regular rate Rhythm: regular rhythm GI Inspection: No distended Palpation (GI): Soft to palpation Skin General skin exam: no rashes or lesions noted Neuro General: patient oriented x3 Extrem Other: No significant skin thickening Z deformity of left thumb Right ring finger with very mildly dilated loops. Bilateral big toe Nailfold capillaroscopy with dilated loops No active synovitis Results Reviewed Results Reviewed: Labs 10/2022? ESR 28 SHIVA 1-80 speckled PAT normal CCP negative QuantiFERON negative SSA 6.9 ( 0.2-.0) SSB negative? Scl 70 -ve Immunoglobulins normal Barium swallow 01/2023? Impression:? Moderate esophageal dysmotility with significant internal esophageal residuals Small type 1 hiatal hernia with associated spontaneous gastroesophageal reflux CT chest without contrast 08/31 Impression 1. Mildly ectatic ascending aorta measuring up to 4.2 cm? 2. Scattered reticulonodular opacities bilaterally, measuring up to 1.8 cm as well as additional more discrete pulmonary nodules measuring up to 0.6 cm.? 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 Correlate with any clinical findings of active infections and/or prior CT imaging to assess for stability.?? In absence of any prior studies to show long-term stability, recommend follow-up CT chest in 3 months to assess for stability.?? 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 Conclusions 1. Normal left ventricular cavity size with mild, concentric left ventricular hypertrophy.? Normal systolic function and regional wall motion with an ejection fraction of 55-60%? 2. Normal right ventricular size and systolic function.?? 3. Trileaflet aortic valve with mildly thickened leaflets.? Mild to moderate aortic insufficiency.? No aortic stenosis.?? 4. Dilated aortic root and ascending aorta 4.2 cm as above.?? 5. Normal pulmonary artery systolic pressure DEXA 08/2019? AP spine T-score-0.5? Right Femoral neck T-score-2.4? Right Total hip T-score -1.2 Major osteoporosis fracture FRAX 30%? Hip fracture 20% Spirometry 10/2022? TLC 91% DLCO 64% Assessment & Plan Assessment & Plan (1) Overlap syndrome: Comment: ++SSa (dry eyes, dry mouth, Raynaud's, ILD, esophageal dysmotility) Code(s): M35.1 - Other overlap syndromes Plan: This is a 82-year-old female with UCTD who presents for follow-up. She is doing well overall. Raynaud's symptoms are well controlled. Esophageal dysmotility symptoms well controlled. She has no inflammatory arthritis on exam. Previous sputum cultures showed positive AFB smear, consistent with not tuberculous mycobacterial infections. She did not have any deeper cultures. Patient's respiratory symptoms are stable and patient transport officer decided not to treat her. She was evaluated by community representative 05/2023 for esophageal dysmotility and she did not want to pursue any treatment or diagnostic testing CT chest did not show any worsening features. Her ILD is stable. Certainly if patient's ILD is worsening, she might require immune suppression such as CellCept but will likely need to complete mycobacterial treatment prior to that. Will repeat PFTs October/2023. More comprehensive serologies were ordered last visit but unfortunately they were not done. Patient got the labs done at an outside lab. Will consider repeating them at the hospital next visit Continue to sleep elevated. To reduce the risk of micro aspirations Follow-up in 6 months Plan I spent 24 minutes reviewing patient's chart, evaluating patient, ordering diagnostic workup, counseling patient and documenting in the chart Orders: Orders PFT pulmonary function test 10/08/23 J84.9 - Interstitial pulmonary disease, unspecified Coding Level of Care Code Est Pt Level 4 (34678) Diagnoses Overlap syndrome M35.1
[2023-08-06 09:15] VITALS: BP 112/62; PULSE 88; TEMP 36.2; BMI 23.3
== END 2023-08-06 09:52 | disposition home or self-care (01) ==
PROVIDERS: PCP Internal Medicine; Visit Provider Student in an Organized Health Care Education/Training Program
DX: M35.1 Other overlap syndromes (principal)
CPT/HCPCS: 99214

== ENCOUNTER → 2023-08-06 09:11 | Outpatient (BNVA) | payer MEDICARE, BC, SELFPAY | PROVIDERS: PCP Internal Medicine; Visit Provider Student in an Organized Health Care Education/Training Program | DX: M35.1 Other overlap syndromes (principal) | CPT/HCPCS: 99212 ==

== ENCOUNTER 2023-11-26 09:50 | Outpatient (AMB) | payer MEDICARE, BC, SELFPAY ==
--- NOTE | 2023-11-26 09:56 | A.OFFPC_ITS ---
Vital Signs 11/26/23 10:00 Height 5 ft 6 in Weight 143 lb BMI 23.1 BP 110/58 L Blood Pressure Location Rt brachial Position Sitting Pulse 84 Pulse Source Pulse Oximeter Pulse Oximetry (%) 96 Oxygen Delivery Method Room Air Intake Visit Reasons: 6 month f/u Intake Note: Pt is here today for 6 months follow up visit. Allergies levofloxacin [Levaquin] Allergy (Unknown, Verified 11/26/23 10:02) rash Sulfa (Sulfonamide Antibiotics) Allergy (Unknown, Verified 11/26/23 10:02) very sick sulfacetamide Allergy (Unknown, Verified 11/26/23 10:02) very sick tetracycline Allergy (Unknown, Verified 11/26/23 10:02) rash Tobacco use date assessed: 11/26/23 Fall risk assessment: No Falls in past year Last assessed Fall Risk: 11/26/23 Dental Screening Dental Screen Date: 11/26/23 Did you have a dental visit in the last 12 months?: Yes Did you have a dental problem in the last 6 months where you did not have access to dental care?: No Was dental information given to patient?: Patient has dentist HPI 6 month f/u HPI Details Patient presents for the follow-up of hypertension/palpitations controlled on carvedilol. She has been physically active walking daily and denies dyspnea on exertion, cough PND orthopnea shortness of breath at rest. Patient follows up with specialty molder for interstitial lung disease and technical training coordinator for connective tissue disease currently not on any treatment. Patient follows up with provisioning analyst for osteoporosis and had a recent [facility]. She has been taking vitamin-D and calcium supplement only. [facility] Medical History Mycobacterial disease Screening for viral disease Dysphagia Bronchiectasis ILD (interstitial lung disease) Annual physical exam Abnormal mammogram of right breast Mitral regurgitation Aortic insufficiency Normal colonoscopy Mammogram normal Hair loss Fatigue Skin cancer, basal cell History of mammogram H/O bone density study Osteoporosis Thrombophlebitis Atrophic vaginitis Palpitations Surgical History H/O colonoscopy No pertinent past surgical history Family History Father No problems noted. Mother No problems noted. Sister Rheumatoid arthritis Social History Household Members: Spouse Housing: House Alcohol intake: current Alcohol intake frequency: does not drink Patient Tobacco Use Status: Never used Tobacco e-Cigarette/Vaping Use: Never Used service: No Current occupational status: retired Cognitive needs: No Hearing needs: No Vision needs: Yes Questionnaire PHQ-9 Over the last 2 weeks, how often have you been bothered by any of the following problems? 1. Little interest or pleasure in doing things: not at all 2. Feeling down, depressed, or hopeless: not at all 3. Trouble falling or staying asleep, or sleeping too much: several days 4. Feeling tired or having little energy: several days 5. Poor appetite or overeating: not at all 6. Feeling bad about yourself - or that you are a failure or have let yourself or your family down: not at all 7. Trouble concentrating on things, such as reading the newspaper or watching television: not at all 8. Moving or speaking so slowly that other people could have noticed. Or the opposite - being so fidgety or restless that you have been moving around a lot more than usual: not at all 9. Thoughts that you would be better off or of hurting yourself in some way: not at all Total score: 2 Depression Screening Interpretation: Negative Depression Screening Done: Yes Source: Developed by Drs. Mike Valladares, Alecia Ryan, Shai Burrell and colleagues, with an educational goldie from [employer]. Thrive Questionnaire Date Thrive assessed: 11/26/23 I am a: Patient What is your living situation today?: I have a steady place to live Within the past 12 months, did the food you bought not last and you didn't have the money to get more?: Never true Within the past 12 months, did you worry whether your food would run out before you got money to buy more?: Never true Do you have trouble paying for medicines?: No Do you have trouble getting transportation to medical appointments?: No Do you have trouble paying your heating and electricity bill?: No Do you have trouble taking care of your child, family member or friend?: No Do you have trouble with day-to-day activities such as bathing, preparing meals, shopping, managing finances, etc.?: No Are you currently unemployed and looking for a job?: No Are you interested in more education?: No Please select the resources that you would like help with: None THRIVE Score: 0 AUDIT C Alcohol Use Questionnaire (AUDIT-C) 1. How often do you have a drink containing alcohol?: Monthly or less 2. How many drinks containing alcohol do you have on a typical day when you are drinking?: 1 or 2 3. How often do you have six or more drinks on one occasion?: Never Total Score: 1 VICTORIANO-7 AMB Questionnaire VICTORIANO-7 Date VICTORIANO - 7 assessed: 11/26/23 Feeling nervous, anxious, or on edge: 1 = Several days Not being able to stop or control worryin = Several days Worrying too much about different things: 1 = Several days Trouble relaxin = Several days Being so restless that it is hard to sit still: 0 = Not at all Becoming easily annoyed or irritable: 0 = Not at all Feeling afraid as if something awful might happen: 0 = Not at all Total VICTORIANO-7 score (0-4 normal; 5-9 mild; 10-14 moderate; 15-21 severe): 4 Source: Developed by Drs. Mike Valladares, Alecia Ryan, Shai Burrell and colleagues, with an educational goldie from [employer]. Review of Systems Const All systems reviewed & are unremarkable except as noted in HPI and below Eyes Reports no additional complaints ENT Reports no additional complaints Resp Reports no additional complaints GI Reports no additional complaints Reports no additional complaints Physical exam (Primary Care) Vital Signs: Last Vital Signs Pulse 84 11/26/23 10:00 BP 110/58 L 11/26/23 10:00 Pulse Ox 96 11/26/23 10:00 Oxygen Delivery Method Room Air 11/26/23 10:00 BMI result Body Mass Index 23.1 Tobacco/Smoking Status: Tobacco use Status Tobacco use date assessed 11/26/23 11/26/23 10:08 Patient Tobacco Use Status Never used Tobacco 11/26/23 10:08 e-Cigarette/Vaping Use Never Used 11/26/23 09:56 PHQ-9: PHQ-9 Score PHQ-9: Total score 2 11/26/23 10:08 Depression Screening Interpretation: Negative Thrive Assessment: Date of Thrive Assessment Date Thrive assessed 11/26/23 11/26/23 10:08 Const General: no acute distress HENMT Head: Yes normal to inspection Ears: hearing grossly normal bilaterally Eyes General: appearance normal, both eyes and all related structures Neck Neck: Yes no lymphadenopathy and Yes supple Resp Effort & Inspection: normal respiratory effort Auscultation: clear to auscultation bilaterally Cardio Rhythm: regular rhythm Heart sounds: S1 normal heart sound present and S2 normal heart sound present GI Inspection: Yes normal to inspection Palpation (GI): Soft to palpation Percussion: Yes normal to percussion Auscultation: normal bowel sounds Assessment and Plan Assessment & Plan (1) Overlap syndrome: Comment: ++SSa (dry eyes, dry mouth, Raynaud's, ILD, esophageal dysmotility) Code(s): M35.1 - Other overlap syndromes Plan: Follow-up with rheumatology (2) ILD (interstitial lung disease): Comment: reticular changes in the periphery/basilar. ?CTD related ILD. No progression 08/31 to 05/31 Code(s): J84.9 - Interstitial pulmonary disease, unspecified Plan: Follow-up with pulmonology, repeat CT in May (3) Bronchiectasis: Comment: Stable chest CT, Code(s): J47.9 - Bronchiectasis, uncomplicated Qualifiers: Bronchiectasis type: uncomplicated Qualified Code(s): J47.9 - Bronchiectasis, uncomplicated Plan: Continue CPT with Acapella valve and follow-up with pulmonology (4) Aorta aneurysm: Comment: stable on Echo 07/[address], repeat Echo 07/2024 Code(s): I71.9 - Aortic aneurysm of unspecified site, without rupture Plan: Repeat echo July 2024 (5) Palpitations: Comment: frequent PVC's controlled on Coreg Code(s): R00.2 - Palpitations Plan: Continue carvedilol (6) Osteoporosis: Comment: on Prolia by Endo Dr. Warner took for 5 years, she will have Reclast Inf 07/2019, DEXA 09/27 worsening, 2nd Reclast infusion 09/27 Code(s): M81.0 - Age-related osteoporosis without current pathological fracture Plan: Follow-up with endocrinology, patient will obtain a copy of most recent DEXA scan Coding Level of Care Code Est Pt Level 4 (11748) Diagnoses Overlap syndrome M35.1 ILD (interstitial lung disease) J84.9 Bronchiectasis without complication J47.9 Bronchiectasis type: uncomplicated Aorta aneurysm I71.9 Palpitations R00.2 Osteoporosis M81.0
[2023-11-26 10:00] VITALS: BP 110/58; PULSE 84; O2SAT 96; BMI 23.1
== END 2023-11-26 11:19 | disposition home or self-care (01) ==
PROVIDERS: PCP Internal Medicine; Visit Provider Internal Medicine
DX: M35.1 Other overlap syndromes (principal); J84.9 Interstitial pulmonary disease, unspecified; J47.9 Bronchiectasis, uncomplicated; I71.9 Aortic aneurysm of unspecified site, without rupture; R00.2 Palpitations; M81.0 Age-related osteoporosis without current pathological fracture
CPT/HCPCS: 99214

== ENCOUNTER 2024-01-17 14:38 | Outpatient (AMB) | payer MEDICARE, BC, SELFPAY ==
[2024-01-17 14:53] VITALS: BP 118/50; PULSE 74; O2SAT 95; BMI 22.9
--- NOTE | 2024-01-17 14:53 | MHC.OFFVIS ---
Vital Signs 01/17/24 14:53 Height 5 ft 6 in Weight 142 lb BMI 22.9 BP 118/50 L Blood Pressure Location Rt brachial Position Sitting Pulse 74 Pulse Source Pulse Oximeter Pulse Oximetry (%) 95 Oxygen Delivery Method Room Air Intake Visit Reasons: cough Landscape Photographer Required: No Allergies levofloxacin [Levaquin] Allergy (Unknown, Verified 01/17/24 14:54) rash Sulfa (Sulfonamide Antibiotics) Allergy (Unknown, Verified 01/17/24 14:54) very sick sulfacetamide Allergy (Unknown, Verified 01/17/24 14:54) very sick tetracycline Allergy (Unknown, Verified 01/17/24 14:54) rash HPI Comments Details: The patient is an 83-year-old woman presenting with abnormal CT scan of the chest. The patient states many years ago she was evaluated at [facility] for a connective tissue disease. At the time was not clear if this was a mixed connective tissue condition. Her symptoms however improved dramatically and the patient did not require any more follow-up. More recently since 2020 the patient started developing worsening cough, nonproductive in nature in the morning mild in severity and subsequently in the evening she will notice and also some coughing. But he did really limit her respiratory capacity and her activities of daily living. She did follow-up with her primary care doctor and she did comment on the cough and she had an x-ray done back in May that was found to be abnormal with some bronchitis looking airways with peribronchial coughing and also some nodular densities. Patient had a repeat chest x-ray after treating her with antibiotics and showed some improvement of the peribronchial coughing, but, she still had the nodular densities in some interstitial changes. Therefore the patient underwent a CT scan of the chest at [facility] which we personally reviewed. The CT scan was pretty involved with significant reticulonodular densities in the periphery consistent with pulmonary fibrosis affecting her left lung more than her right lung in the briefly but also in the bases. In addition to this the patient had evidence of bronchiectasis tree in bud in addition to this nodular densities on her right lung more than the left. The etiology of these nodular densities some clear at this time although smoldering infections is in the differential. On further questioning she denies any mold in the house. She has had a CT in the past but nothing recent. She does have allergies to pollen sometimes. She has an allergy testing. The patient denies any other exposures to fumes or toxins although she lived in a house of smokers and had significant secondhand smoke to she left her home. She does complain of some difficulty swallowing. On her CT scan with his see dilations of the esophagus. She also has a small mouth in addition to Raynaud's phenomenon although the related to potential connective tissue conditions. She will require additional blood work and also a sputum culture for AFB to assess her for non tuberculosis mycobacterial infections. 12/14/2022 the patient is here for a pulmonary follow-up visit. The patient overall is doing about the same. Continues to have issues with cough. Typically nonproductive in nature worse in the morning. We were able to get a sputum for AFB which was negative. She could not get a sample good enough for sputum culture for Gram stain. Patient did have a repeat CT scan of the chest again demonstrating the pulmonary nodules and also the reticular changes consistent pulmonary fibrosis. No significant changes when compared to her CT scan from August. The patient also had blood work demonstrating the positive SHIVA and subsequently positive Sjogren's antibodies. With a positive SSA. The patient does complaint of dry eyes and dry mouth. She does not have a housing assistant property manager at this time. 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 Therefore is reasonable to start treating her with Plaquenil. At least there is no evidence of any ground-glass opacities or evidence of active disease. Some of the nodular densities however appear to be more infectious in appearance. Although she has a negative AFB culture this is usually not enough. We did talk about a bronchoscopy the patient is not interested at this time. Will plan to repeat the sputum culture. If the sputum culture continues to be negative if the patient does need to start immunosuppressive therapy then at point I would make a point to try to get deep cultures to rule out infection and avoid worsening smoldering infections on immunosuppressive therapy. In addition to this the patient is having a difficulty time swallowing. I heard the esophagus is a dilated on her CT scan again. This suggests some degree of dysmotility or achalasia. 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 03/16/2023 the patient is here for pulmonary follow-up visit. She continues to be about the same. Does have a nonproductive cough intermittently. Mild in severity. 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 Her barium swallows indeed it appeared that she had tertiary contractions but also the barium became stagnant midesophagus. She states that her GI doctor retired. Will send her to a GI doctor for the same practice since she already has records there. The patient also had sputum cultures sent for AFB and which was positive. She has non tuberculosis mycobacterial disease which goes along with her significant bronchiectasis. She also has interstitial lung disease noted on her CT scan her. May be multifactorial. The patient will be provided with an Acapella valve. Will help her to learn how to use it this will provide her some relief of mucous plugging and hopefully provide us with a better sample. Will hold off on treating the mycobacterial disease as of yet specially since be very difficult for the patient to tolerate the therapy. Will go ahead and request a 2nd sputum to confirm the findings and also will request a repeat CT scan to address her significant pulmonary nodules interstitial lung disease. 06/13/2023 the patient is here for a pulmonary follow-up visit. Overall the patient has been doing little better. She did get the Acapella valve and she has been using it. She has been able to expectorate a lot better. She has been able to clear her lungs more. Denies any shortness breath or any other issues. The patient did have a repeat CT scan of the chest demonstrating stable interstitial lung changes consistent with some degree of pulmonary fibrosis primarily the periphery in the basis in addition to waxing waning pulmonary nodules consistent with her likely mycobacterial disease. Will try to get another sputum culture. He right now will not treat her mycobacterial disease unless her symptoms worsen or if her CT scan worsens. Date fibrotic changes are also stable. I do believe that they are secondary to a connective tissue disease process. If there is any evidence of any activity of the connective tissue disease that should be treated to minimize on the pulmonary manifestations. 01/17/2024 the patient is here for a pulmonary follow-up visit. Overall the patient has been feeling better. She has been monitoring closely her reflux diet and she has following the reflux precautions. She is sleeping with the wedge pillow. This has been helpful. Her chest congestion is decreased. She does use the Acapella valve. We did review her last CT scan of the chest done in 05/28/2023 with significant interstitial lung disease pulmonary nodules and bronchiectatic changes along with mucus plugging. Will plan to repeat the CT scan sometime in the winter. We did review her CT scan of the chest also demonstrating the dilated esophagus. She will be careful with her swallow. We talked about alternate solids and liquids. The patient already has small meals and bites. Therefore, she continues to do well will have her get a CT scan and follow-up sometime in the early spring of 2024. If he has any new issues she will call for an earlier is . [facility] Medical History Mycobacterial disease Screening for viral disease Dysphagia Bronchiectasis ILD (interstitial lung disease) Annual physical exam Abnormal mammogram of right breast Mitral regurgitation Aortic insufficiency Normal colonoscopy Mammogram normal Hair loss Fatigue Skin cancer, basal cell History of mammogram H/O bone density study Osteoporosis Thrombophlebitis Atrophic vaginitis Palpitations Surgical History H/O colonoscopy No pertinent past surgical history Family History Father No problems noted. Mother No problems noted. Sister Rheumatoid arthritis Social History Household Members: Spouse Housing: House Alcohol intake: current Alcohol intake frequency: does not drink Patient Tobacco Use Status: Never used Tobacco e-Cigarette/Vaping Use: Never Used service: No Current occupational status: retired Cognitive needs: No Hearing needs: No Vision needs: Yes Review of Systems Const Denies fever(s) Eyes Reports dry eyes ENT Reports dysphagia and Denies mouth lesions Card Denies chest pain Resp Denies chest congestion, Reports cough and Denies wheezing GI Reports dysphagia Musc Reports myalgias and Reports stiffness Skin/Breast Denies rash Neuro Reports no additional complaints Endo Reports no additional complaints Valentino/Lymph Denies easy bleeding, Denies easy bruising and Denies lymphadenopathy Aller/Immun Denies wheezing Physical Exam Vital Signs: Last Vital Signs Pulse 74 01/17/24 14:53 BP 118/50 L 01/17/24 14:53 Pulse Ox 95 01/17/24 14:53 Oxygen Delivery Method Room Air 01/17/24 14:53 BMI result Body Mass Index 22.9 Const General: no acute distress HEENT Head: Yes normal to inspection Ears: hearing grossly normal bilaterally Neck Neck: Yes no lymphadenopathy and Yes supple Chest Chest palpation & inspection: normal inspection of the chest Resp Effort & Inspection: normal respiratory effort Auscultation: diminished lung sounds Cardio Rhythm: regular rhythm Heart sounds: S1 normal heart sound present and S2 normal heart sound present GI Palpation (GI): Soft to palpation Auscultation: normal bowel sounds Skin General skin exam: no rashes or lesions noted Extrem General: Yes no clubbing, cyanosis or edema and Yes other (sclerodactaly) Assessment & Plan Assessment & Plan (1) Lung nodules: Comment: Chest CT 08/31, 05/2023 waxing and waning Code(s): R91.8 - Other nonspecific abnormal finding of lung field Category: Medical (2) Bronchiectasis: Comment: Stable chest CT, Code(s): J47.9 - Bronchiectasis, uncomplicated Category: Medical Qualifiers: Bronchiectasis type: uncomplicated Qualified Code(s): J47.9 - Bronchiectasis, uncomplicated (3) ILD (interstitial lung disease): Comment: reticular changes in the periphery/basilar. ?CTD related ILD. No progression 08/31 to 05/31 Code(s): J84.9 - Interstitial pulmonary disease, unspecified Category: Medical (4) Connective tissue disease: Code(s): M35.9 - Systemic involvement of connective tissue, unspecified Category: Medical (5) Dysphagia: Code(s): R13.10 - Dysphagia, unspecified Category: Medical Qualifiers: Dysphagia type: esophageal phase Qualified Code(s): R13.19 - Other dysphagia (6) Sjogren's syndrome with lung involvement: Code(s): M35.02 - Sjogren syndrome with lung involvement Category: Medical (7) Mycobacterial disease: Code(s): A31.9 - Mycobacterial infection, unspecified Category: Medical Plan CPT with acapella valve BID repeat CT chest in 06/2024 or sooner if worsening symptoms F/U 10-12 months Orders: Orders CT chest wo IV con 07/14/24 J84.9 - Interstitial pulmonary disease, unspecified, R91.8 - Other nonspecific abnormal finding of lung field Coding Level of Care Code Est Pt Level 4 (13445) Diagnoses Lung nodules R91.8 Bronchiectasis without complication J47.9 Bronchiectasis type: uncomplicated ILD (interstitial lung disease) J84.9 Connective tissue disease M35.9 Esophageal dysphagia R13.19 Dysphagia type: esophageal phase Sjogren's syndrome with lung involvement M35.02 Mycobacterial disease A31.9 Time Spent (min) 17
== END 2024-01-17 15:19 | disposition home or self-care (01) ==
PROVIDERS: PCP Internal Medicine; Visit Provider Hospitalist
DX: R91.8 Other nonspecific abnormal finding of lung field (principal); J47.9 Bronchiectasis, uncomplicated; J84.9 Interstitial pulmonary disease, unspecified; M35.9 Systemic involvement of connective tissue, unspecified; R13.19 Other dysphagia; M35.02 Sjogren syndrome with lung involvement; A31.9 Mycobacterial infection, unspecified
CPT/HCPCS: 99214

== ENCOUNTER → 2024-01-17 14:38 | Outpatient (BNVA) | payer MEDICARE, BC, SELFPAY | PROVIDERS: PCP Internal Medicine; Visit Provider Hospitalist | DX: R91.8 Other nonspecific abnormal finding of lung field (principal); M35.02 Sjogren syndrome with lung involvement; J47.9 Bronchiectasis, uncomplicated; J84.9 Interstitial pulmonary disease, unspecified; M35.9 Systemic involvement of connective tissue, unspecified; R13.19 Other dysphagia; A31.9 Mycobacterial infection, unspecified | CPT/HCPCS: 99212 ==

== ENCOUNTER 2024-01-30 10:12 | Outpatient (AMB) | payer MEDICARE, BC, SELFPAY ==
--- NOTE | 2024-01-30 10:18 | A.OFFVIS_ITS ---
Vital Signs 01/30/24 10:23 Height 5 ft 6 in Weight 143 lb 11.862 oz BMI 23.2 BP 120/58 L Blood Pressure Location Rt brachial Position Sitting Pulse 73 Pulse Source Pulse Oximeter Pulse Oximetry (%) 95 Oxygen Delivery Method Room Air Intake Visit Reasons: MCTD/CM Intake Note: Patient presents for MCTD. Allergies levofloxacin [Levaquin] Allergy (Unknown, Verified 01/30/24 10:21) rash Sulfa (Sulfonamide Antibiotics) Allergy (Unknown, Verified 01/30/24 10:21) very sick sulfacetamide Allergy (Unknown, Verified 01/30/24 10:21) very sick tetracycline Allergy (Unknown, Verified 01/30/24 10:21) rash Medication List - Last Reconciled 01/30/24 by Christina Oviedo MD ascorbate calcium (vitamin C) 500 mg PO DAILY bimatoprost 0.03% (Latisse) 1 appl topical DAILY carvedilol 3.125 mg PO BID cholecalciferol (vitamin D3) 25 mcg PO DAILY cranberry extract 1,300 mg PO DAILY estradiol 10 mcg vaginal 2XW fluoride (sodium) 1.1% (PreviDent 5000 Booster Plus) 1 appl dental BEDTIME ykibaayb-bbjcl-hxy 2-C-D3-andrew 750-30-1,000-1 ce-mt-pwhh-mg (Ldrpvabuecg-Fldelkggsgb-FKC + vitD) tabs PO mirabegron ER 25 mg PO DAILY omega-3 fatty acids 1,000 mg PO DAILY HPI Comments Details: 83-year-old female with overlap syndrome (Sjogren's and scleroderma) who presents for follow-up. She states that she is doing reasonably well overall. She has been using a wedge pillow and an Acapella device and states that her cough has improved, congestion improved. Denied any significant reflux symptoms. Denies any shortness of breath. Denies any joint pain or swelling. Has not had any Raynaud's episode. She had COVID infection that lasted for about 2 weeks in October. She denies any weight loss. Continues to have intermittent dryness of the eyes and mouth. She uses artificial tears for her eyes as needed she also uses mouth lozenges and drinks plenty of water. Initial history: This is an 82-year-old female was referred for evaluation of a connective tissue disease. In 1975 patient was evaluated by telegraphic service dispatcher for a connective tissue disorder. At that time patient fevers, joint pains, skin rashes, Raynaud's. She was diagnosed with SLE. Over time her symptoms self- resolved except for the Raynaud's. Patient stated that she has been managing the Raynaud's conservatively. She denies ever having any digital tip ulcers. She is able to reverse the Raynaud's episodes with putting her hands under warm water. Usually it reverses in a few minutes. These episodes happen in the colder winter months. Not currently. She did not require any treatment. Over the years she had some narrowing of her mouth opening. In 2003 patient started having some difficulty swallowing. Large pills would get stuck. She had an EGD back then. Over the last 2 years patient has been having a cough, usually worse in the morning. Associated with minimal shortness of breath. She ultimately had a CT chest which showed some findings suggestive of pulmonary fibrosis. She was evaluated by pulmonology and referred to Rheumatology. Also patient has had dry eyes for many years. She uses lubricating ointment at night and uses refresh artificial tears once or twice a day. She does not rec all ever being on Restasis. She denies any weight loss. Denies any joint pain. Denies any skin thickening. She is unaware of history of DVT/PE. Unaware of any family history of autoimmune rheumatic disease [facility] Medical History Mycobacterial disease Screening for viral disease Dysphagia Bronchiectasis ILD (interstitial lung disease) Annual physical exam Abnormal mammogram of right breast Mitral regurgitation Aortic insufficiency Normal colonoscopy Mammogram normal Hair loss Fatigue Skin cancer, basal cell History of mammogram H/O bone density study Osteoporosis Thrombophlebitis Atrophic vaginitis Palpitations Surgical History H/O colonoscopy No pertinent past surgical history Family History (Reviewed 01/30/24 @ : by Christina Oviedo MD) Father No problems noted. Mother No problems noted. Sister Rheumatoid arthritis Sister Hereditary spastic paraplegia Social History Household Members: Spouse Housing: House Alcohol intake: current Alcohol intake frequency: does not drink Patient Tobacco Use Status: Never used Tobacco e-Cigarette/Vaping Use: Never Used service: No Current occupational status: retired Cognitive needs: No Hearing needs: No Vision needs: Yes Female Reproductive History Menstrual Total pregnancies: 3 Ab induced: 0 Ab spontaneous: 0 Review of Systems Card Denies dyspnea and Denies dyspnea on exertion Resp Denies dyspnea and Denies dyspnea on exertion Musc Denies arthralgias and Denies stiffness Skin/Breast Denies rash Physical Exam Vital Signs: Last Vital Signs Pulse 73 01/30/24 10:23 BP 120/58 L 01/30/24 10:23 Pulse Ox 95 01/30/24 10:23 Oxygen Delivery Method Room Air 01/30/24 10:23 BMI result Body Mass Index 23.2 Const General: cooperative, healthy appearing and comfortable Nutritional Appearance: average body habitus Orientation/consciousness: patient oriented x3 Limitations: no limitations HEENT Other: Slightly reduced mouth opening Head: Yes normocephalic and Yes atraumatic Mouth: moist mucous membranes Resp Effort & Inspection: normal respiratory effort and able to speak in complete sentences Auscultation: diminished lung sounds bilateral in the lower lung mullen Cardio Rate: regular rate Rhythm: regular rhythm GI Inspection: No distended Palpation (GI): Soft to palpation Skin General skin exam: no rashes or lesions noted Neuro General: patient oriented x3 Extrem Other: No significant skin thickening Z deformity of left thumb Mildly cool fingertips Right ring finger with very mildly dilated loops. Bilateral big toe Nailfold capillaroscopy with dilated loops No active synovitis Results Reviewed Results Reviewed: Labs 10/2022? ESR 28 SHIVA 1-80 speckled PAT normal CCP negative QuantiFERON negative SSA 6.9 ( 0.2-.0) SSB negative? Scl 70 -ve Immunoglobulins normal Barium swallow 01/2023? Impression:? Moderate esophageal dysmotility with significant internal esophageal residuals Small type 1 hiatal hernia with associated spontaneous gastroesophageal reflux CT chest without contrast 08/31 Impression 1. Mildly ectatic ascending aorta measuring up to 4.2 cm? 2. Scattered reticulonodular opacities bilaterally, measuring up to 1.8 cm as well as additional more discrete pulmonary nodules measuring up to 0.6 cm.? 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 Correlate with any clinical findings of active infections and/or prior CT imaging to assess for stability.?? In absence of any prior studies to show long-term stability, recommend follow-up CT chest in 3 months to assess for stability.?? 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 Conclusions 1. Normal left ventricular cavity size with mild, concentric left ventricular hypertrophy.? Normal systolic function and regional wall motion with an ejection fraction of 55-60%? 2. Normal right ventricular size and systolic function.?? 3. Trileaflet aortic valve with mildly thickened leaflets.? Mild to moderate aortic insufficiency.? No aortic stenosis.?? 4. Dilated aortic root and ascending aorta 4.2 cm as above.?? 5. Normal pulmonary artery systolic pressure Spirometry 10/2022? TLC 91% DLCO 64% Assessment & Plan Assessment & Plan (1) Overlap syndrome: Comment: ++SSa (dry eyes, dry mouth, Raynaud's, ILD, esophageal dysmotility) Code(s): M35.1 - Other overlap syndromes Category: Medical Plan: This is an 83-year-old female with overlap syndrome (Sjogren's + scleroderma) who presents for follow-up. She is doing well overall. Raynaud's symptoms are well controlled. Esophageal dysmotility symptoms well controlled. She has no inflammatory arthritis on exam. 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 She did not have any deeper cultures. Patient's respiratory symptoms are stable and assessment technician decided not to treat her. She was evaluated by apprentice pattern maker 05/2023 for esophageal dysmotility and she did not want to pursue any treatment or diagnostic testing Patient has been sleeping elevated using a wedge pillow and using an Acapella device with improvement of respiratory symptoms. Advised patient to continue CT chest/2022 did not show any worsening features. Her ILD is stable. A repeat CT chest was ordered by Dr. Farnsworth to be done 07/2024 Certainly if patient's ILD is worsening, she might require immune suppression such as CellCept but will likely need to complete mycobacterial treatment prior to that. Labs before next visit in 6 months (2) Osteoporosis: Comment: on Prolia by Endo Dr. Warner took for 5 years, she will have Reclast Inf 07/2019, DEXA 3/22 worsening, 2nd Reclast infusion 09/27 Code(s): M81.0 - Age-related osteoporosis without current pathological fracture Category: Medical Qualifiers: Osteoporosis type: age-related Presence of current pathological fracture: without current pathological fracture Qualified Code(s): M81.0 - Age- related osteoporosis without current pathological fracture Plan: Managed by terrazzo journeyman Plan I spent 24 minutes reviewing patient's chart, evaluating patient, ordering diagnostic workup, counseling patient and documenting in the chart Coding Level of Care Code Est Pt Level 4 (32050) Diagnoses Overlap syndrome M35.1 Age-related osteoporosis without current pathological fracture M81.0 Osteoporosis type: age-related Presence of current pathological fracture: without current pathological fracture
[2024-01-30 10:23] VITALS: BP 120/58; PULSE 73; O2SAT 95; BMI 23.2
== END 2024-01-30 10:58 | disposition home or self-care (01) ==
PROVIDERS: PCP Internal Medicine; Visit Provider Student in an Organized Health Care Education/Training Program
DX: M35.1 Other overlap syndromes (principal); M81.0 Age-related osteoporosis without current pathological fracture
CPT/HCPCS: 99214

== ENCOUNTER → 2024-01-30 10:12 | Outpatient (BNVA) | payer MEDICARE, BC, SELFPAY | PROVIDERS: PCP Internal Medicine; Visit Provider Student in an Organized Health Care Education/Training Program | DX: M35.1 Other overlap syndromes (principal); M81.0 Age-related osteoporosis without current pathological fracture | CPT/HCPCS: 99212 ==

== ENCOUNTER 2024-07-10 09:41 | Outpatient (REF) | payer MEDICARE, BC, SELFPAY ==
--- NOTE | ~2024-07-10 | XR_ITS ---
EXAMINATION: XR KNEE, LEFT CLINICAL INFORMATION: M25.562 - Pain in left knee COMPARISON: None available. TECHNIQUE: Two views of the left knee. FINDINGS: Submitted for interpretation on July 16, 2024. No acute cortical disruption or malalignment. No lytic or blastic lesions. No suprapatellar bursa joint effusion . XR/XR knee LT 2V IMPRESSION: No acute fracture or dislocation. Electronically signed by: Gregory Leblanc MD 07/16/2024 08:38 AM EST
== END 2024-07-10 09:42 | disposition home or self-care (01) ==
LOC: HO.HMGCX 09:41
PROVIDERS: PCP Internal Medicine; Visit Provider Internal Medicine
DX: Z00.00 Encounter for general adult medical examination without abnormal findings (principal); M25.562 Pain in left knee; M35.1 Other overlap syndromes; J84.9 Interstitial pulmonary disease, unspecified; I71.9 Aortic aneurysm of unspecified site, without rupture; R00.2 Palpitations; M81.0 Age-related osteoporosis without current pathological fracture
CPT/HCPCS: 73560; 96127

== ENCOUNTER 2024-07-10 09:41 | Outpatient (AMB) | payer MEDICARE, BC, SELFPAY ==
[2024-07-10 09:44] VITALS: BP 110/60; PULSE 65; O2SAT 97; BMI 23.2
--- NOTE | 2024-07-10 09:44 | AM.OFFVISMDC ---
Intake Vital Signs 07/10/24 09:44 Height 5 ft 6 in Weight 144 lb BMI 23.2 BP 110/60 Blood Pressure Location Lt brachial Position Sitting Pulse 65 Pulse Source Pulse Oximeter Pulse Oximetry (%) 97 Oxygen Delivery Method Room Air Intake Visit Reasons: Annual Wellness Intake Note: Pt is here today for AWV. Allergies levofloxacin [Levaquin] Allergy (Unknown, Verified 07/10/24 09:46) rash Sulfa (Sulfonamide Antibiotics) Allergy (Unknown, Verified 07/10/24 09:46) very sick sulfacetamide Allergy (Unknown, Verified 07/10/24 09:46) very sick tetracycline Allergy (Unknown, Verified 07/10/24 09:46) rash Medication List - Last Reconciled 07/10/24 by Yaneli James MD ascorbate calcium (vitamin C) 500 mg PO DAILY bimatoprost 0.03% (Latisse) 1 appl topical DAILY carvedilol 3.125 mg PO BID cholecalciferol (vitamin D3) 25 mcg PO DAILY cranberry extract 1,300 mg PO DAILY cyclosporine 0.05% (Restasis) 1 drp ophthalmic (eye) Q12H estradiol 10 mcg vaginal 2XW fluoride (sodium) 1.1% (PreviDent 5000 Booster Plus) 1 appl dental BEDTIME rzvrjsiw-frbyv-ruw 2-C-D3-andrew 750-30-1,000-1 gn-nt-jsqa-mg (Rsbuerynfmr-Bohldbspxvv-LWN + vitD) tabs PO mirabegron ER 25 mg PO DAILY omega-3 fatty acids 1,000 mg PO DAILY HPI Annual Wellness HPI Details Pt presents for PE. pt c/o chronic L knee for 6 months, worse when starting to walk or walking down the stairs . She denies any injury or joint swelling. Initiated the conversation about Advanced Directives. Advanced Directives help? patients prepare for current and future decisions about their medical treatment? and place of care. Discussed with patient that it is a process where a patients? current condition and prognosis are reviewed, their wishes for information? regarding their illness are elicited, and likely medical dilemmas are presented? and options discussed. The form can be amended as needed, reviewed yearly and? make changes as needed IPPE/AWV ? year old presents? for her ? Annual? Wellness Visit, initial visit.? Medical / Social History Reviewed? Past Medical History ?Yes? . ? [place]? of Care / Care Team list updated ?Yes . ? Surgical/Hospitalization? History ?Yes . ? Current Medications? (including OTC and supplements) ?Yes . ? Family History ?Yes? . ? Tobacco? Control form ?Yes . ? AUDIT-C (Alcohol use) form? ?Yes . ? Illicit drug use in Social? History ?Yes . ? Current diagnosis of? depression? ?No ? Appropriate PHQ2/PHQ9? completed ?Yes . ? Data entered by ?Medical? Community Placement Worker and reviewed by provider ? Fall Risk ? Fall? History? Have you had any falls with? injury in the past year? ?No . ? Have you had two or more? falls in the past year? ?No . ? Fall Risk Assessment: ?No? falls in the past year . ? HRA filled out by? the patient, reviewed by Provider and scanned. ? IPPE/AWV ? Balance? [place]? ?Yes . ? Tandem? walk ?Yes . ? Walk and? Turn ?Yes . ? Rise from? sit to stand ?Yes . ?Vision? Corrective? lens ?Yes ? Vision? screen ? Up-to-date, has an appointment [] for vision? screening and glaucoma screening ?Hearing? Whisper? test ?pass .? Initiated the conversation about Advanced Directives. Advanced Directives help? patients prepare for current and future decisions about their medical treatment? and place of care. Discussed with patient that it is a process where a patients? current condition and prognosis are reviewed, their wishes for information? regarding their illness are elicited, and likely medical dilemmas are presented? and options discussed. The form can be amended as needed, reviewed yearly and? make changes as needed Written? Plan?Completed. See Patient? Documents. [facility] Medical History (Updated 07/10/24 @ 12:47 by Yaneli James MD) Mycobacterial disease Screening for viral disease Dysphagia ILD (interstitial lung disease) Annual physical exam Abnormal mammogram of right breast Mitral regurgitation Aortic insufficiency Normal colonoscopy Mammogram normal Hair loss Fatigue Skin cancer, basal cell History of mammogram H/O bone density study Osteoporosis Thrombophlebitis Atrophic vaginitis Palpitations Surgical History H/O colonoscopy No pertinent past surgical history Family History Father No problems noted. Mother No problems noted. Sister Rheumatoid arthritis Sister Hereditary spastic paraplegia Social History Household Members: Spouse Housing: House Alcohol intake: current Alcohol intake frequency: does not drink Patient Tobacco Use Status: Never used Tobacco e-Cigarette/Vaping Use: Never Used service: No Current occupational status: retired Cognitive needs: No Hearing needs: No Vision needs: Yes Questionnaire Medicare Wellness Checkup What is your age?: 81 or older What gender do you identify with?: female During the past 4 weeks, how much have you been bothered by emotional problems such as feeling anxious, depressed, irritable, sad or downhearted, and blue?: slightly During the past 4 weeks, has your physical & emotional health limited your social activities with family, friends, neighbors, or groups?: not at all During the past 4 weeks, how much bodily pain have you generally had?: no pain During the past 4 weeks, was someone available to help you if you needed & wanted help?: yes, as much as I wanted During the past 4 weeks, what was the hardest physical activity you could do for at least 2 minutes?: heavy Can you get to places out of walking distance without help? (For eg., can you travel alone on buses, taxis or drive your car?): Yes Can you go shopping for groceries or clothes without someone's help?: Yes Can you prepare your own meals?: Yes Can you do your housework without help?: Yes Because of any health problems, do you need the help of another person with your personal care needs such as eating, bathing, dressing or getting around the house?: No Can you handle your own money without help?: Yes During the past 4 weeks, how would you rate your health in general?: good During the past 4 weeks how have things been going for you?: pretty well Are you having difficulties driving your car?: no Do you always fasten your seat belt when you are in a car?: yes, usually During past 4 weeks, have you been bothered by the following: never: Falling or dizzy when standing up, Sexual problems?, Trouble eating well?, Teeth or denture problems?, Problems using the telephone? and Tiredness or fatigue? Have you fallen 2 or more times in the past year?: No Are you afraid of falling?: No Are you a smoker?: no During the past 4 weeks, how many drinks of wine, beer, or other alcoholic beverages did you have?: no alcohol at all Do you exercise for about 20 minutes 3 or more times a week?: yes, some of the time Have you been given information to help with the following?: no: Hazards in your house that might hurt you? and no: Keeping track of your medications? How often do you have trouble taking medicines the way you have been told to take them?: I always take medicine as prescribed How confident are you that you can control & manage most of your health problems?: very confident What is your race?: White Mini Mental State Exam (MMSE) Orientation What is the (year) (season) (date) (day) (month)?: year, season, date, day and month Where are we (state) (county) (town or city) (hospital) (floor)?: state, county, town or city, hospital/clinic and floor Registration Name of 3 unrelated objects clearly and slowly, then ask patient to repeat all 3 of them. (1st repeat determines score. Make sure they can repeat all three): object 1, object 2 and object 3 Attention & Calculation (CHOOSE ONE) Spell WORLD backwards (DLROW): 5 letters Recall Ask patient to repeat the 3 items from question #3.: object 1, object 2 and object 3 Language Show patient a wristwatch & ask what it is. Repeat for pencil.: watch and pencil Ask the patient to repeat the phrase 'No ifs, ands, or buts' after you.: correct Ask the patient to 'take a piece of paper with their right hand' 'fold paper in half' 'place paper on floor': take paper in right hand, fold paper in half and place paper on floor Print the sentence 'CLOSE YOUR EYES' on a piece. If patient actually closes eyes then score.: followed written direction Give patient a blank piece of paper & ask to write a sentence. Score if it contains a noun & verb.: sentence contains subject and verb Score Score: 29 PHQ-9 Over the last 2 weeks, how often have you been bothered by any of the following problems? 1. Little interest or pleasure in doing things: not at all 2. Feeling down, depressed, or hopeless: not at all 3. Trouble falling or staying asleep, or sleeping too much: not at all 4. Feeling tired or having little energy: not at all 5. Poor appetite or overeating: not at all 6. Feeling bad about yourself - or that you are a failure or have let yourself or your family down: not at all 7. Trouble concentrating on things, such as reading the newspaper or watching television: not at all 8. Moving or speaking so slowly that other people could have noticed. Or the opposite - being so fidgety or restless that you have been moving around a lot more than usual: not at all 9. Thoughts that you would be better off or of hurting yourself in some way: not at all Total score: 0 Depression Screening Interpretation: Negative Depression Screening Done: Yes 94037 - PHQ-9 Billing: Yes Source: Developed by Drs. Mike Valladares, Alecia Ryan, Shai Burrell and colleagues, with an educational goldie from [employer]. Review of Systems Const All systems reviewed & are unremarkable except as noted in HPI and below Eyes Reports no additional complaints ENT Reports no additional complaints Card Reports no additional complaints Resp Reports no additional complaints GI Reports no additional complaints Reports no additional complaints Physical Exam Vital Signs: Last Vital Signs Pulse 65 07/10/24 09:44 BP 110/60 07/10/24 09:44 Pulse Ox 97 07/10/24 09:44 Oxygen Delivery Method Room Air 07/10/24 09:44 BMI result Body Mass Index 23.2 Const General: no acute distress HEENT Head: Yes normal to inspection Eyes General: appearance normal, both eyes and all related structures Neck Neck: Yes no lymphadenopathy and Yes supple Resp Effort & Inspection: normal respiratory effort Auscultation: clear to auscultation bilaterally Cardio Rhythm: regular rhythm Heart sounds: S1 normal heart sound present and S2 normal heart sound present GI Inspection: Yes normal to inspection Palpation (GI): Soft to palpation Percussion: Yes normal to percussion Auscultation: normal bowel sounds Extrem Other: Decreased range of motion and crepitus of the left knee, no soft tissue swelling erythema and warmth General: Yes no clubbing, cyanosis or edema Assessment & Plan Assessment & Plan (1) Left knee pain: Code(s): M25.562 - Pain in left knee Plan: For chronic left knee pain obtain x-ray of the left knee and patient will schedule an appointment with physical therapy. For any persistent symptoms she will be referred to orthopedic surgeon (2) Overlap syndrome: Comment: ++SSa (dry eyes, dry mouth, Raynaud's, ILD, esophageal dysmotility), no active treatment as per rheumatology Code(s): M35.1 - Other overlap syndromes Plan: No active treatment as per rheumatology (3) ILD (interstitial lung disease): Comment: reticular changes in the periphery/basilar. ?CTD related ILD. No progression 08/31 to 05/31, patient is scheduled for a repeat CT of the chest 07/2023 and follows up with Dr. Farnsworth Code(s): J84.9 - Interstitial pulmonary disease, unspecified Plan: Follow-up with pulmonology, asymptomatic (4) Aorta aneurysm: Comment: stable on Echo 07/[address], repeat Echo 07/2024 Code(s): I71.9 - Aortic aneurysm of unspecified site, without rupture Plan: Follow-up on a CT of the chest (5) Annual physical exam: Code(s): Z00.00 - Encounter for general adult medical examination without abnormal findings Plan: Well-balanced diet regular physical activity discussed with the patient. She is up-to-date with the mammogram (6) Palpitations: Comment: frequent PVC's controlled on Coreg Code(s): R00.2 - Palpitations Plan: Continue carvedilol (7) Osteoporosis: Comment: on Prolia by Endo Dr. Warner took for 5 years, Reclast Inf 07/2019, DEXA 09/27 worsening, 2nd Reclast infusion 09/27, 3/DEXA 2023 stable T score -2.5 femoral neck (increased from baseline) Code(s): M81.0 - Age-related osteoporosis without current pathological fracture Qualifiers: Osteoporosis type: age-related Presence of current pathological fracture: without current pathological fracture Qualified Code(s): M81.0 - Age-related osteoporosis without current pathological fracture Plan: Continue vitamin-D supplement and weight-bearing exercises Orders: Orders Comprehensive [place]. Panel Fast 1 Year M81.0 - Age-related osteoporosis without current pathological fracture, Z00.00 - Encounter for general adult medical examination without abnormal findings Complete Blood Count Auto Diff 1 Year M81.0 - Age-related osteoporosis without current pathological fracture, Z00.00 - Encounter for general adult medical examination without abnormal findings TSH reflex Free T4 1 Year M81.0 - Age-related osteoporosis without current pathological fracture, Z00.00 - Encounter for general adult medical examination without abnormal findings Vitamin D 25-OH Total 1 Year M81.0 - Age-related osteoporosis without current pathological fracture, Z00.00 - Encounter for general adult medical examination without abnormal findings PT Evaluation and Treatment Today M25.562 - Pain in left knee CT chest wo IV con 07/14/24 J84.9 - Interstitial pulmonary disease, unspecified, R91.8 - Other nonspecific abnormal finding of lung field Lipid Panel 1 Year M81.0 - Age-related osteoporosis without current pathological fracture, Z00.00 - Encounter for general adult medical examination without abnormal findings Medications: Refilled mirabegron ER 25 mg PO DAILY 30 tabs 0RF carvedilol 3.125 mg PO BID 180 tabs 3RF Quality Reporting (2019) Depression/Bipolar (159/160/161/177) PHQ-9: Total score: 0 Coding Level of Care Code Medicare Subsequent (G0439) Diagnoses Left knee pain M25.562 Overlap syndrome M35.1 ILD (interstitial lung disease) J84.9 Aorta aneurysm I71.9 Annual physical exam Z00.00 Palpitations R00.2 Age-related osteoporosis without current pathological fracture M81.0 Osteoporosis type: age-related Presence of current pathological fracture: without current pathological fracture CPT Codes Advance Care Planning - Advance Care Planning discussion: On file, no changes ([id number]) Advance Care Planning - Time spent: 1-15 minutes, on File ([id number]) Additional Codes PHQ-9 - 30420 - PHQ-9 Billing: Yes ([id number]) Advance Care Planning Advance Care Planning discussion: On file, no changes Forms completed: Health Care Proxy Time spent: 1-15 minutes, on File Did not discuss due to Cultural/Spiritual beliefs: Yes
== END 2024-07-10 12:47 | disposition home or self-care (01) ==
PROVIDERS: PCP Internal Medicine; Visit Provider Internal Medicine
DX: Z00.00 Encounter for general adult medical examination without abnormal findings (principal); M35.1 Other overlap syndromes; J84.9 Interstitial pulmonary disease, unspecified; I71.9 Aortic aneurysm of unspecified site, without rupture; M25.562 Pain in left knee; R00.2 Palpitations; M81.0 Age-related osteoporosis without current pathological fracture

== ENCOUNTER 2024-09-09 10:59 | Outpatient (AMB) | payer MEDICARE, BC, SELFPAY ==
--- NOTE | 2024-09-09 11:07 | A.OFFVIS_ITS ---
Vital Signs 09/09/24 11:08 Height 5 ft 6 in Weight 145 lb 8.081 oz BMI 23.5 BP 148/70 H Blood Pressure Location Rt brachial Position Sitting Pulse 81 Pulse Source Pulse Oximeter Pulse Oximetry (%) 99 Oxygen Delivery Method Room Air Intake Visit Reasons: Cough Allergies levofloxacin [Levaquin] Allergy (Unknown, Verified 09/09/24 11:14) rash Sulfa (Sulfonamide Antibiotics) Allergy (Unknown, Verified 09/09/24 11:14) very sick sulfacetamide Allergy (Unknown, Verified 09/09/24 11:14) very sick tetracycline Allergy (Unknown, Verified 09/09/24 11:14) rash Medication List - Last Reconciled 09/09/24 by Katelin Golden LPN ascorbate calcium (vitamin C) 500 mg PO DAILY bimatoprost 0.03% (Latisse) 1 appl topical DAILY carvedilol 3.125 mg PO BID cholecalciferol (vitamin D3) 25 mcg PO DAILY cranberry extract 1,300 mg PO DAILY cyclosporine 0.05% (Restasis) 1 drp ophthalmic (eye) Q12H estradiol 10 mcg vaginal 2XW fluoride (sodium) 1.1% (PreviDent 5000 Booster Plus) 1 appl dental BEDTIME skhfalww-kgbhu-xlc 2-C-D3-andrew 750-30-1,000-1 ho-sw-pdch-mg (Gheubpotkdy-Whuowjseudq-DTW + vitD) tabs PO mirabegron ER 25 mg PO DAILY omega-3 fatty acids 1,000 mg PO DAILY HPI Comments Details: The patient is an 83-year-old woman presenting with abnormal CT scan of the chest. The patient states many years ago she was evaluated at [facility] for a connective tissue disease. At the time was not clear if this was a mixed connective tissue condition. Her symptoms however improved dramatically and the patient did not require any more follow-up. More recently since 2020 the patient started developing worsening cough, nonproductive in nature in the morning mild in severity and subsequently in the evening she will notice and also some coughing. But he did really limit her respiratory capacity and her activities of daily living. She did follow-up with her primary care doctor and she did comment on the cough and she had an x-ray done back in May that was found to be abnormal with some bronchitis looking airways with peribronchial coughing and also some nodular densities. Patient had a repeat chest x-ray after treating her with antibiotics and showed some improvement of the peribronchial coughing, but, she still had the nodular densities in some interstitial changes. Therefore the patient underwent a CT scan of the chest at [facility] which we personally reviewed. The CT scan was pretty involved with significant reticulonodular densities in the periphery consistent with pulmonary fibrosis affecting her left lung more than her right lung in the briefly but also in the bases. In addition to this the patient had evidence of bronchiectasis tree in bud in addition to this nodular densities on her right lung more than the left. The etiology of these nodular densities some clear at this time although smoldering infections is in the differential. On further questioning she denies any mold in the house. She has had a CT in the past but nothing recent. She does have allergies to pollen sometimes. She has an allergy testing. The patient denies any other exposures to fumes or toxins although she lived in a house of smokers and had significant secondhand smoke to she left her home. She does complain of some difficulty swallowing. On her CT scan with his see dilations of the esophagus. She also has a small mouth in addition to Raynaud's phenomenon although the related to potential connective tissue conditions. She will require additional blood work and also a sputum culture for AFB to assess her for non tuberculosis mycobacterial infections. 12/14/2022 the patient is here for a pulmonary follow-up visit. The patient overall is doing about the same. Continues to have issues with cough. Typically nonproductive in nature worse in the morning. We were able to get a sputum for AFB which was negative. She could not get a sample good enough for sputum culture for Gram stain. Patient did have a repeat CT scan of the chest again demonstrating the pulmonary nodules and also the reticular changes consistent pulmonary fibrosis. No significant changes when compared to her CT scan from August. The patient also had blood work demonstrating the positive SHIVA and subsequently positive Sjogren's antibodies. With a positive SSA. The patient does complaint of dry eyes and dry mouth. 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 Therefore is reasonable to start treating her with Plaquenil. At least there is no evidence of any ground-glass opacities or evidence of active disease. Some of the nodular densities however appear to be more infectious in appearance. Although she has a negative AFB culture this is usually not enough. We did talk about a bronchoscopy the patient is not interested at this time. Will plan to repeat the sputum culture. If the sputum culture continues to be negative if the patient does need to start immunosuppressive therapy then at point I would make a point to try to get deep cultures to rule out infection and avoid worsening smoldering infections on immunosuppressive therapy. In addition to this the patient is having a difficulty time swallowing. I heard the esophagus is a dilated on her CT scan again. This suggests some degree of dysmotility or achalasia. 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 03/16/2023 the patient is here for pulmonary follow-up visit. She continues to be about the same. Does have a nonproductive cough intermittently. Mild in severity. 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 Her barium swallows indeed it appeared that she had tertiary contractions but also the barium became stagnant midesophagus. She states that her GI doctor retired. Will send her to a GI doctor for the same practice since she already has records there. The patient also had sputum cultures sent for AFB and which was positive. She has non tuberculosis mycobacterial disease which goes along with her significant bronchiectasis. She also has interstitial lung disease noted on her CT scan her. May be multifactorial. The patient will be provided with an Acapella valve. Will help her to learn how to use it this will provide her some relief of mucous plugging and hopefully provide us with a better sample. Will hold off on treating the mycobacterial disease as of yet specially since be very difficult for the patient to tolerate the therapy. Will go ahead and request a 2nd sputum to confirm the findings and also will request a repea t CT scan to address her significant pulmonary nodules interstitial lung disease. 06/13/2023 the patient is here for a pulmonary follow-up visit. Overall the patient has been doing little better. She did get the Acapella valve and she has been using it. She has been able to expectorate a lot better. She has been able to clear her lungs more. Denies any shortness breath or any other issues. The patient did have a repeat CT scan of the chest demonstrating stable interstitial lung changes consistent with some degree of pulmonary fibrosis primarily the periphery in the basis in addition to waxing waning pulmonary nodules consistent with her likely mycobacterial disease. Will try to get another sputum culture. He right now will not treat her mycobacterial disease unless her symptoms worsen or if her CT scan worsens. Date fibrotic changes are also stable. I do believe that they are secondary to a connective tissue disease process. If there is any evidence of any activity of the connective tissue disease that should be treated to minimize on the pulmonary manifestations. 01/17/2024 the patient is here for a pulmonary follow-up visit. Overall the patient has been feeling better. She has been monitoring closely her reflux diet and she has following the reflux precautions. She is sleeping with the wedge pillow. This has been helpful. Her chest congestion is decreased. She does use the Acapella valve. We did review her last CT scan of the chest done in 05/28/2023 with significant interstitial lung disease pulmonary nodules and bronchiectatic changes along with mucus plugging. Will plan to repeat the CT scan sometime in the winter. We did review her CT scan of the chest also demonstrating the dilated esophagus. She will be careful with her swallow. We talked about alternate solids and liquids. The patient already has small meals and bites. Therefore, she continues to do well will have her get a CT scan and follow-up sometime in the early spring of 2024. If he has any new issues she will call for an earlier is . 09/09/2024 the patient is here for a pulmonary follow-up visit. Overall she is doing well denies any shortness of breath or cough denies any weight loss or night sweats. She did have a CT scan of the chest and we did reviewed. I also did review the CT scan she had back in 05/28/2023. Both were done at [facility]. Seems that she has progressive disease for both the interstitial disease in the periphery of the lungs in addition to that some nodular densities primarily in the right hemithorax. There is 1 nodule that measures about 1.2 cm in size. There appears to be a separate entity and therefore need to consider the possibility of scar tumor or a malignant process and may be growing amongst interstitial process. She has another nodular ill-defined patchy density also in the right lower lobe. Patient also has evidence of bronchiectasis. I do not appreciate a dilation of the esophagus are she had before. In view of the 1.2 cm nodular density indeed malignancies in differential. Will going to go ahead and request a PET scan to better address this nodule and see if we should move along with the biopsy. In the meantime will treated with azithromycin 3 times a week for the non tuberculosis mycobacterial disease to decrease any significant burden of disease prior to the PET scan. Will follow-up in 3 months but will talk after the PET scan. She understands that if the PET scan is significantly abnormal we need to look into a performing a biopsy. Likely a CT-guided biopsy based on the location of this nodule. If she has any issues prior to that will call for an earlier evaluation. [facility] Medical History (Updated 09/09/24 @ 11:58 by Danilo Farnsworth MD) Pulmonary nodule 1 cm or greater in diameter Mycobacterial disease Screening for viral disease Dysphagia ILD (interstitial lung disease) Annual physical exam Abnormal mammogram of right breast Mitral regurgitation Aortic insufficiency Normal colonoscopy Mammogram normal Hair loss Fatigue Skin cancer, basal cell History of mammogram H/O bone density study Osteoporosis Thrombophlebitis Atrophic vaginitis Palpitations Surgical History H/O colonoscopy No pertinent past surgical history Family History Father No problems noted. Mother No problems noted. Sister Rheumatoid arthritis Sister Hereditary spastic paraplegia Social History Household Members: Spouse Housing: House Alcohol intake: current Alcohol intake frequency: does not drink Patient Tobacco Use Status: Never used Tobacco e-Cigarette/Vaping Use: Never Used service: No Current occupational status: retired Cognitive needs: No Hearing needs: No Vision needs: Yes Review of Systems Const Denies fever(s) Eyes Reports dry eyes ENT Reports dysphagia and Denies mouth lesions Card Denies chest pain Resp Denies chest congestion, Reports cough and Denies wheezing GI Reports dysphagia Musc Reports myalgias and Reports stiffness Skin/Breast Denies rash Neuro Reports no additional complaints Endo Reports no additional complaints Valentino/Lymph Denies easy bleeding, Denies easy bruising and Denies lymphadenopathy Aller/Immun Denies wheezing Physical Exam Vital Signs: Last Vital Signs Pulse 81 09/09/24 11:08 BP 148/70 H 09/09/24 11:08 Pulse Ox 99 09/09/24 11:08 Oxygen Delivery Method Room Air 09/09/24 11:08 BMI result Body Mass Index 23.5 Const General: no acute distress HEENT Head: Yes normal to inspection Ears: hearing grossly normal bilaterally Neck Neck: Yes no lymphadenopathy and Yes supple Chest Chest palpation & inspection: normal inspection of the chest Resp Effort & Inspection: normal respiratory effort Auscultation: diminished lung sounds Cardio Rhythm: regular rhythm Heart sounds: S1 normal heart sound present and S2 normal heart sound present GI Palpation (GI): Soft to palpation Auscultation: normal bowel sounds Skin General skin exam: no rashes or lesions noted Extrem General: Yes no clubbing, cyanosis or edema and Yes other (sclerodactaly) Assessment & Plan Assessment & Plan (1) Lung nodules: Comment: Chest CT 08/31, 05/2023 waxing and waning Code(s): R91.8 - Other nonspecific abnormal finding of lung field Category: Medical (2) Bronchiectasis: Comment: Stable chest CT, Code(s): J47.9 - Bronchiectasis, uncomplicated Category: Medical Qualifiers: Bronchiectasis type: uncomplicated Qualified Code(s): J47.9 - Bronchiectasis, uncomplicated (3) ILD (interstitial lung disease): Comment: reticular changes in the periphery/basilar. ?CTD related ILD. No progression 08/31 to 05/31, patient is scheduled for a repeat CT of the chest 07/2023 and follows up with Dr. Farnsworth Code(s): J84.9 - Interstitial pulmonary disease, unspecified Category: Medical (4) Connective tissue disease: Code(s): M35.9 - Systemic involvement of connective tissue, unspecified Category: Medical (5) Dysphagia: Code(s): R13.10 - Dysphagia, unspecified Category: Medical Qualifiers: Dysphagia type: esophageal phase Qualified Code(s): R13.19 - Other dysphagia (6) Sjogren's syndrome with lung involvement: Code(s): M35.02 - Sjogren syndrome with lung involvement Category: Medical (7) Mycobacterial disease: Code(s): A31.9 - Mycobacterial infection, unspecified Category: Medical (8) Pulmonary nodule 1 cm or greater in diameter: Code(s): R91.1 - Solitary pulmonary nodule Category: Medical Plan CPT with acapella valve BID PET/CT, if abnormal will need a biopsy of the 1.2cm Right sided nodule. She wants to have it at [facility] [place] start Azithromycin 500mg MWF x 4-8 weeks Will need an EKG F/U 3 months Orders: Orders PET CT fusion skull to thigh 4 Weeks R91.1 - Solitary pulmonary nodule Medications: New azithromycin 500 mg PO 3XW 12 tabs 1RF 28 days Coding Level of Care Code Est Pt Level 5 (87220) Diagnoses Lung nodules R91.8 Bronchiectasis without complication J47.9 Bronchiectasis type: uncomplicated ILD (interstitial lung disease) J84.9 Connective tissue disease M35.9 Esophageal dysphagia R13.19 Dysphagia type: esophageal phase Sjogren's syndrome with lung involvement M35.02 Mycobacterial disease A31.9 Pulmonary nodule 1 cm or greater in diameter R91.1 Time Spent (min) 45
[2024-09-09 11:08] VITALS: BP 148/70; PULSE 81; O2SAT 99; BMI 23.5
== END 2024-09-09 11:57 | disposition home or self-care (01) ==
PROVIDERS: PCP Internal Medicine; Visit Provider Hospitalist
DX: R91.8 Other nonspecific abnormal finding of lung field (principal); J47.9 Bronchiectasis, uncomplicated; J84.9 Interstitial pulmonary disease, unspecified; M35.9 Systemic involvement of connective tissue, unspecified; R13.19 Other dysphagia; M35.02 Sjogren syndrome with lung involvement; A31.9 Mycobacterial infection, unspecified; R91.1 Solitary pulmonary nodule
CPT/HCPCS: 99215

== ENCOUNTER → 2024-09-09 10:59 | Outpatient (BNVA) | payer MEDICARE, BC, SELFPAY | PROVIDERS: PCP Internal Medicine; Visit Provider Hospitalist | DX: R91.8 Other nonspecific abnormal finding of lung field (principal); J47.9 Bronchiectasis, uncomplicated; J84.9 Interstitial pulmonary disease, unspecified; M35.9 Systemic involvement of connective tissue, unspecified; M35.02 Sjogren syndrome with lung involvement; R13.19 Other dysphagia; A31.9 Mycobacterial infection, unspecified | CPT/HCPCS: 99212 ==

== ENCOUNTER 2024-11-10 14:00 | Outpatient (AMB) | payer MEDICARE, BC, SELFPAY ==
[2024-11-10 14:02] VITALS: BP 124/56; PULSE 78; O2SAT 98; BMI 23.7
--- NOTE | 2024-11-10 14:02 | MHC.OFFVIS ---
Vital Signs 11/10/24 14:02 Height 5 ft 6 in Weight 146 lb 9.718 oz BMI 23.7 BP 124/56 L Blood Pressure Location Lt brachial Position Sitting Pulse 78 Pulse Source Pulse Oximeter Pulse Oximetry (%) 98 Oxygen Delivery Method Room Air Intake Visit Reasons: Lung nodules/PET Follow Up Project Manager/Team Coach Required: No Accompanied by: Spouse Allergies levofloxacin [Levaquin] Allergy (Unknown, Verified 11/10/24 14:06) rash Sulfa (Sulfonamide Antibiotics) Allergy (Unknown, Verified 11/10/24 14:06) very sick sulfacetamide Allergy (Unknown, Verified 11/10/24 14:06) very sick tetracycline Allergy (Unknown, Verified 11/10/24 14:06) rash HPI Comments Details: The patient is an 83-year-old woman presenting with abnormal CT scan of the chest. The patient states many years ago she was evaluated at [facility] for a connective tissue disease. At the time was not clear if this was a mixed connective tissue condition. Her symptoms however improved dramatically and the patient did not require any more follow-up. More recently since 2020 the patient started developing worsening cough, nonproductive in nature in the morning mild in severity and subsequently in the evening she will notice and also some coughing. But he did really limit her respiratory capacity and her activities of daily living. She did follow-up with her primary care doctor and she did comment on the cough and she had an x-ray done back in May that was found to be abnormal with some bronchitis looking airways with peribronchial coughing and also some nodular densities. Patient had a repeat chest x-ray after treating her with antibiotics and showed some improvement of the peribronchial coughing, but, she still had the nodular densities in some interstitial changes. Therefore the patient underwent a CT scan of the chest at [facility] which we personally reviewed. The CT scan was pretty involved with significant reticulonodular densities in the periphery consistent with pulmonary fibrosis affecting her left lung more than her right lung in the briefly but also in the bases. In addition to this the patient had evidence of bronchiectasis tree in bud in addition to this nodular densities on her right lung more than the left. The etiology of these nodular densities some clear at this time although smoldering infections is in the differential. On further questioning she denies any mold in the house. She has had a CT in the past but nothing recent. She does have allergies to pollen sometimes. She has an allergy testing. The patient denies any other exposures to fumes or toxins although she lived in a house of smokers and had significant secondhand smoke to she left her home. She does complain of some difficulty swallowing. On her CT scan with his see dilations of the esophagus. She also has a small mouth in addition to Raynaud's phenomenon although the related to potential connective tissue conditions. She will require additional blood work and also a sputum culture for AFB to assess her for non tuberculosis mycobacterial infections. 12/14/2022 the patient is here for a pulmonary follow-up visit. The patient overall is doing about the same. Continues to have issues with cough. Typically nonproductive in nature worse in the morning. We were able to get a sputum for AFB which was negative. She could not get a sample good enough for sputum culture for Gram stain. Patient did have a repeat CT scan of the chest again demonstrating the pulmonary nodules and also the reticular changes consistent pulmonary fibrosis. No significant changes when compared to her CT scan from August. The patient also had blood work demonstrating the positive SHIVA and subsequently positive Sjogren's antibodies. With a positive SSA. The patient does complaint of dry eyes and dry mouth. She does not have a director of safety at this time. 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 Therefore is reasonable to start treating her with Plaquenil. At least there is no evidence of any ground-glass opacities or evidence of active disease. Some of the nodular densities however appear to be more infectious in appearance. Although she has a negative AFB culture this is usually not enough. We did talk about a bronchoscopy the patient is not interested at this time. Will plan to repeat the sputum culture. If the sputum culture continues to be negative if the patient does need to start immunosuppressive therapy then at point I would make a point to try to get deep cultures to rule out infection and avoid worsening smoldering infections on immunosuppressive therapy. In addition to this the patient is having a difficulty time swallowing. I heard the esophagus is a dilated on her CT scan again. This suggests some degree of dysmotility or achalasia. 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 03/16/2023 the patient is here for pulmonary follow-up visit. She continues to be about the same. Does have a nonproductive cough intermittently. Mild in severity. 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 Her barium swallows indeed it appeared that she had tertiary contractions but also the barium became stagnant midesophagus. She states that her GI doctor retired. Will send her to a GI doctor for the same practice since she already has records there. The patient also had sputum cultures sent for AFB and which was positive. She has non tuberculosis mycobacterial disease which goes along with her significant bronchiectasis. She also has interstitial lung disease noted on her CT scan her. May be multifactorial. The patient will be provided with an Acapella valve. Will help her to learn how to use it this will provide her some relief of mucous plugging and hopefully provide us with a better sample. Will hold off on treating the mycobacterial disease as of yet specially since be very difficult for the patient to tolerate the therapy. Will go ahead and request a 2nd sputum to confirm the findings and also will request a repeat CT scan to address her significant pulmonary nodules interstitial lung disease. 06/13/2023 the patient is here for a pulmonary follow-up visit. Overall the patient has been doing little better. She did get the Acapella valve and she has been using it. She has been able to expectorate a lot better. She has been able to clear her lungs more. Denies any shortness breath or any other issues. The patient did have a repeat CT scan of the chest demonstrating stable interstitial lung changes consistent with some degree of pulmonary fibrosis primarily the periphery in the basis in addition to waxing waning pulmonary nodules consistent with her likely mycobacterial disease. Will try to get another sputum culture. He right now will not treat her mycobacterial disease unless her symptoms worsen or if her CT scan worsens. Date fibrotic changes are also stable. I do believe that they are secondary to a connective tissue disease process. If there is any evidence of any activity of the connective tissue disease that should be treated to minimize on the pulmonary manifestations. 01/17/2024 the patient is here for a pulmonary follow-up visit. Overall the patient has been feeling better. She has been monitoring closely her reflux diet and she has following the reflux precautions. She is sleeping with the wedge pillow. This has been helpful. Her chest congestion is decreased. She does use the Acapella valve. We did review her last CT scan of the chest done in 05/28/2023 with significant interstitial lung disease pulmonary nodules and bronchiectatic changes along with mucus plugging. Will plan to repeat the CT scan sometime in the winter. We did review her CT scan of the chest also demonstrating the dilated esophagus. She will be careful with her swallow. We talked about alternate solids and liquids. The patient already has small meals and bites. Therefore, she continues to do well will have her get a CT scan and follow-up sometime in the early spring of 2024. If he has any new issues she will call for an earlier is . 09/09/2024 the patient is here for a pulmonary follow-up visit. Overall she is doing well denies any shortness of breath or cough denies any weight loss or night sweats. She did have a CT scan of the chest and we did reviewed. I also did review the CT scan she had back in 05/28/2023. Both were done at [facility]. Seems that she has progressive disease for both the interstitial disease in the periphery of the lungs in addition to that some nodular densities primarily in the right hemithorax. There is 1 nodule that measures about 1.2 cm in size. There appears to be a separate entity and therefore need to consider the possibility of scar tumor or a malignant process and may be growing amongst interstitial process. She has another nodular ill-defined patchy density also in the right lower lobe. Patient also has evidence of bronchiectasis. I do not appreciate a dilation of the esophagus are she had before. In view of the 1.2 cm nodular density indeed malignancies in differential. Will going to go ahead and request a PET scan to better address this nodule and see if we should move along with the biopsy. In the meantime will treated with azithromycin 3 times a week for the non tuberculosis mycobacterial disease to decrease any significant burden of disease prior to the PET scan. Will follow-up in 3 months but will talk after the PET scan. She understands that if the PET scan is significantly abnormal we need to look into a performing a biopsy. Likely a CT-guided biopsy based on the location of this nodule. If she has any issues prior to that will call for an earlier evaluation. 11/10/2024 the patient is here for pulmonary follow-up visit. Overall the patient has been doing well. Denies any significant weight loss or night sweats or decreased appetite. She did complete the antibiotics 3 times a week as prescribed as a treatment empirically for smoldering infection such as mycobacterium disease. Ultimately underwent a PET scan more recently that we personally reviewed together. We also looked at a CAT scan previously to the PET scan back in August and also looked at a CT scan she had back in May 2024. The patient does have some FDG activity of the pulmonary nodules although mild between 2 - 3 maximum SUV FDG activity. Based on the fact that the pulmonary nodules appear to be progressing primarily in the right hemithorax when compared to 2022 my inclination is to recommend a biopsy this time. Although the activities mild the nodules look abnormal. They also did not respond to the antibiotic empiric therapy. The patient is agreeable to a biopsy. She is going to be going on a trip to [place] and when she comes back will plan to do a biopsy at [facility] as per her preference. The patient follow-up after the biopsy with us to review the results. [facility] Medical History Pulmonary nodule 1 cm or greater in diameter Mycobacterial disease Screening for viral disease Dysphagia ILD (interstitial lung disease) Annual physical exam Abnormal mammogram of right breast Mitral regurgitation Aortic insufficiency Normal colonoscopy Mammogram normal Hair loss Fatigue Skin cancer, basal cell History of mammogram H/O bone density study Osteoporosis Thrombophlebitis Atrophic vaginitis Palpitations Surgical History H/O colonoscopy No pertinent past surgical history Family History Father No problems noted. Mother No problems noted. Sister Rheumatoid arthritis Sister Hereditary spastic paraplegia Social History Household Members: Spouse Housing: House Alcohol intake: current Alcohol intake frequency: does not drink Patient Tobacco Use Status: Never used Tobacco e-Cigarette/Vaping Use: Never Used service: No Current occupational status: retired Cognitive needs: No Hearing needs: No Vision needs: Yes Review of Systems Const Denies chills, Denies fatigue, Denies fever(s), Denies weight gain and Denies weight loss Eyes Reports dry eyes ENT Denies dizziness Card Denies chest pain, Denies leg edema, Denies lightheadedness, Denies palpitations, Denies dyspnea on exertion, Denies orthopnea and Denies other Resp Reports cough, Denies dyspnea on exertion and Denies wheezing GI Denies hematochezia and Denies change in stool character Musc Denies abnormal gait, Denies muscle weakness, Denies numbness, Denies radiating pain into limb and Denies tingling Skin/Breast Denies rash Neuro Denies abnormal gait, Denies dizziness, Denies numbness and Denies tingling Endo Denies fatigue and Denies palpitations Valentino/Lymph Denies easy bleeding, Denies easy bruising and Denies lymphadenopathy Aller/Immun Denies wheezing Physical Exam Vital Signs: Last Vital Signs Pulse 78 11/10/24 14:02 BP 124/56 L 11/10/24 14:02 Pulse Ox 98 11/10/24 14:02 Oxygen Delivery Method Room Air 11/10/24 14:02 BMI result Body Mass Index 23.7 Const General: no acute distress HEENT Head: Yes normal to inspection Ears: hearing grossly normal bilaterally Neck Neck: Yes no lymphadenopathy and Yes supple Chest Chest palpation & inspection: normal inspection of the chest Resp Effort & Inspection: normal respiratory effort Auscultation: diminished lung sounds Cardio Rhythm: regular rhythm Heart sounds: S1 normal heart sound present and S2 normal heart sound present GI Palpation (GI): Soft to palpation Auscultation: normal bowel sounds Skin General skin exam: no rashes or lesions noted Extrem General: Yes no clubbing, cyanosis or edema and Yes other (sclerodactaly) Assessment & Plan Assessment & Plan (1) Lung nodules: Comment: Chest CT 08/31, 05/2023 waxing and waning Code(s): R91.8 - Other nonspecific abnormal finding of lung field Category: Medical (2) Bronchiectasis: Comment: Stable chest CT, Code(s): J47.9 - Bronchiectasis, uncomplicated Category: Medical Qualifiers: Bronchiectasis type: uncomplicated Qualified Code(s): J47.9 - Bronchiectasis, uncomplicated (3) ILD (interstitial lung disease): Comment: reticular changes in the periphery/basilar. ?CTD related ILD. No progression 08/31 to 05/31, patient is scheduled for a repeat CT of the chest 07/2023 and follows up with Dr. Farnsworth Code(s): J84.9 - Interstitial pulmonary disease, unspecified Category: Medical (4) Connective tissue disease: Code(s): M35.9 - Systemic involvement of connective tissue, unspecified Category: Medical (5) Dysphagia: Code(s): R13.10 - Dysphagia, unspecified Category: Medical Qualifiers: Dysphagia type: esophageal phase Qualified Code(s): R13.19 - Other dysphagia (6) Sjogren's syndrome with lung involvement: Code(s): M35.02 - Sjogren syndrome with lung involvement Category: Medical (7) Mycobacterial disease: Code(s): A31.9 - Mycobacterial infection, unspecified Category: Medical (8) Pulmonary nodule 1 cm or greater in diameter: Code(s): R91.1 - Solitary pulmonary nodule Category: Medical Plan CPT with acapella valve BID PET/CT, if abnormal will need a biopsy of the 1.2cm Right sided nodule. +FDG activity, although mild. Plan for CT guided biopsy based on the progressive nature. Will request both cytology and cx. Pt prefers [facility]. stopped Azithromycin 500mg MWF x 4-8 weeks, no change F/U 2 months Orders: Orders CT guided FNA Today R91.1 - Solitary pulmonary nodule Coding Level of Care Code Est Pt Level 5 (95785) Diagnoses Lung nodules R91.8 Bronchiectasis without complication J47.9 Bronchiectasis type: uncomplicated ILD (interstitial lung disease) J84.9 Connective tissue disease M35.9 Esophageal dysphagia R13.19 Dysphagia type: esophageal phase Sjogren's syndrome with lung involvement M35.02 Mycobacterial disease A31.9 Pulmonary nodule 1 cm or greater in diameter R91.1 Time Spent (min) 45
== END 2024-11-10 15:10 | disposition home or self-care (01) ==
LOC: HO.HPS 14:00
PROVIDERS: PCP Internal Medicine; Visit Provider Hospitalist
DX: R91.8 Other nonspecific abnormal finding of lung field (principal); J84.9 Interstitial pulmonary disease, unspecified; M35.02 Sjogren syndrome with lung involvement; A31.9 Mycobacterial infection, unspecified; R13.19 Other dysphagia
CPT/HCPCS: 99215

== ENCOUNTER → 2024-11-10 14:00 | Outpatient (BNVA) | payer MEDICARE, BC, SELFPAY | PROVIDERS: PCP Internal Medicine; Visit Provider Hospitalist | DX: R91.8 Other nonspecific abnormal finding of lung field (principal); R91.1 Solitary pulmonary nodule; J47.9 Bronchiectasis, uncomplicated; J84.9 Interstitial pulmonary disease, unspecified; M35.9 Systemic involvement of connective tissue, unspecified; M35.02 Sjogren syndrome with lung involvement; R13.19 Other dysphagia; A31.9 Mycobacterial infection, unspecified | CPT/HCPCS: 99212 ==

== ENCOUNTER 2024-12-23 08:36 | Outpatient (AMB) | payer MEDICARE, BC, SELFPAY ==
[2024-12-23 08:37] VITALS: PULSE 82; TEMP 36.7; O2SAT 95; BMI 23.3
--- NOTE | 2024-12-23 08:37 | MHC.OFFWIV ---
Intake Vital Signs 12/23/24 08:37 Height 5 ft 6 in Weight 144 lb 4 oz BMI 23.3 Pulse 82 Pulse Source Pulse Oximeter Temp 98.0 F Temp Source Oral Pulse Oximetry (%) 95 Oxygen Delivery Method Room Air Intake Visit Reasons: EP clogged RT ear Intake Note: Right ear clogged times 1 month Patient Tobacco Use Status: Never used Tobacco Allergies levofloxacin [Levaquin] Allergy (Unknown, Verified 12/23/24 08:43) rash Sulfa (Sulfonamide Antibiotics) Allergy (Unknown, Verified 12/23/24 08:43) very sick sulfacetamide Allergy (Unknown, Verified 12/23/24 08:43) very sick tetracycline Allergy (Unknown, Verified 12/23/24 08:43) rash Do you need a note to return to daycare/school/sports/work: No HPI HPI Comments History of Present Illness Details History - The patient is an 84-year-old female presenting with cerumen impaction in the right ear. - The patient reports frequent accumulation of earwax in the right ear, leading to reduced hearing. - She experiences occasional stabbing pain in the right ear, which serves as a reminder to seek medical attention. - The patient has a history of earwax removal procedures and regularly uses Deprox drops, although the wax continues to build up. Physical Exam Physical Exam General: Cooperative, healthy appearing, comfortable, no acute distress and well developed Orientation: Patient oriented x3 Limitations: No limitations Head: Normal to inspection Ears: External ears normal bilaterally, TM's with impacted cerumen in the right ear Face and sinus: Normal facial exam Neck: Normal visual inspection and Yes full ROM Respiratory: Normal respiratory effort and able to speak in complete sentences. Skin: No rashes or lesions noted Neuro: Patient oriented x3 Extremities: normal to inspection [facility] Medical History Pulmonary nodule 1 cm or greater in diameter Mycobacterial disease Screening for viral disease Dysphagia ILD (interstitial lung disease) Annual physical exam Abnormal mammogram of right breast Mitral regurgitation Aortic insufficiency Normal colonoscopy Mammogram normal Hair loss Fatigue Skin cancer, basal cell History of mammogram H/O bone density study Osteoporosis Thrombophlebitis Atrophic vaginitis Palpitations Surgical History H/O colonoscopy No pertinent past surgical history Family History Father No problems noted. Mother No problems noted. Sister Rheumatoid arthritis Sister Hereditary spastic paraplegia Social History Household Members: Spouse Housing: House Alcohol intake: current Alcohol intake frequency: does not drink Patient Tobacco Use Status: Never used Tobacco e-Cigarette/Vaping Use: Never Used service: No Current occupational status: retired Cognitive needs: No Hearing needs: No Vision needs: Yes Review of Systems Const All systems reviewed & are unremarkable except as noted in HPI and below Physical Exam Vital Signs: Last Vital Signs Temp 98.0 F 12/23/24 08:37 Pulse 82 12/23/24 08:37 Pulse Ox 95 12/23/24 08:37 Oxygen Delivery Method Room Air 12/23/24 08:37 BMI result Body Mass Index 23.3 Office Procedures Cerumen Removal From which ear canal was the cerumen removed: right Removal: irrigation Notes: patient tolerated procedure well, no complications and ear canal clear [id number] Irrigation/Lavage Assessment & Plan Assessment & Plan (1) Cerumen impaction: Code(s): H61.20 - Impacted cerumen, unspecified ear Qualifiers: Laterality: right Qualified Code(s): H61.21 - Impacted cerumen, right ear Plan: 1. Cerumen Impaction In The Right Ear - The plan is to perform an ear irrigation to remove the cerumen from the right ear. - The patient is advised to inform the clinician if dizziness occurs during the procedure. - Cerumen removed with irrigation, EAC clear and TM normal on right ear s/p procedure. Patient was informed and verbally consented to the use of an ambient scribe for clinic note documentation during this visit. Coding Level of Care Code Est Pt Level 3 (49562) Diagnoses Impacted cerumen of right ear H61.21 Laterality: right CPT Codes Office Procedure - CPT: 20689-Ybm Irrigation/Lavage ([id number])
== END 2024-12-23 09:10 | disposition home or self-care (01) ==
PROVIDERS: PCP Internal Medicine; Visit Provider Physician Assistant
DX: H61.21 Impacted cerumen, right ear (principal)

== ENCOUNTER → 2024-12-23 08:36 | Outpatient (BNVA) | payer MEDICARE, BC, SELFPAY | PROVIDERS: PCP Internal Medicine; Visit Provider Physician Assistant | DX: H61.21 Impacted cerumen, right ear (principal) | CPT/HCPCS: 69209; 99212 ==

== ENCOUNTER 2025-01-21 09:57 | Outpatient (REF) | payer MEDICARE, BC, SELFPAY ==
--- OUTSIDE RECORDS SUMMARY | 2025-01-21 10:33 | XMS_ITS | Clinical Summary ---
Author Organization [email or web address] it Address [address] [place] [address] Care Team Providers Care Street Light Cleaner Name Role Phone Yaneli James MD Primary Care Provider [phone] Encounters Date Type Department Care Team Description 01/21/2025 Telephone Thoracic Surgery - [place] [address] [facility] [address] [place] [address] Codie Sam RN from Last 3 Months Social History Tobacco Use Types Packs/Day Years Used Date Smoking Tobacco: Never Assessed Comments Unknown Sex and Gender Information Value Date Recorded Sex Assigned at Not on file Legal Sex Female 10:54 PM EST Gender Identity Not on file Sexual Orientation Not on file Last Filed Vital Signs Vital Sign Reading Time Taken Comments Blood Pressure - - Pulse - - Temperature - - Respiratory Rate - - Oxygen Saturation - - Inhaled Oxygen Concentration - - Weight 65.8 kg (145 lb) 07/19/2022 11:25 AM EST Height 167.6 cm (5' 6 ) 07/19/2022 11:25 AM EST Body Mass Index 23.4 07/19/2022 11:25 AM EST Plan of Treatment Health Maintenance Due Date Last Done Comments DTaP,Tdap,and Td Vaccines (1 - Tdap) 1959 Pneumococcal Vaccine: 50+ Ye ars (1 of 1 - PCV) 11/25/1991 Zoster Vaccines (1 of 2) 11/25/1991 RSV Immunization Adult Patie nts (1 - 1-dose 75+ series) 2016 Falls Risk Assessment 06/11/2022 Osteoporosis Screening (Bone Density Screening) 06/11/2022 Social Influencers of Health Screening 06/11/2022 COVID-19 Vaccine (2023-2 5 season) 2024 Depression Screening 07/09/2024 Influenza Vaccine (#1) 2025 HIB Vaccines Aged Out No longer eligi ble based on patient's age to complete this topic HPV Vaccines Aged Out No longer eligi ble based on patient's age to complete this topic Hepatitis A Vaccines Aged Out No long er eligible based on patient's age to complete this topic Hepatitis B Vaccines Aged Out No long er eligible based on patient's age to complete this topic IPV Vaccines Aged Out No longer eligi ble based on patient's age to complete this topic MMR Vaccines Aged Out No longer eligi ble based on patient's age to complete this topic Meningococcal ACWY Vaccine Aged Out N o longer eligible based on patient's age to complete this topic Meningococcal B Vaccine Aged Out No l onger eligible based on patient's age to complete this topic RSV Immunization Patients Un macey 20 months Aged Out No longer eligible b ased on patient's age to complete this topic Varicella Vaccines Aged Out No longer eligible based on patient's age to complete this topic Care Teams Street Light Cleaner Relationship Specialty Start Date End Date Yaneli James MD PCP - General 11/12/14
[2025-01-21 10:59] VITALS: PULSE 83; RESP 16; O2SAT 99
--- NOTE | 2025-01-21 14:39 | PFT_ITS ---
Flows: FEV1: 87 % of predicted at 1.74 L FVC: 89 % of predicted at 2.33 L FEV1/FVC: 75 % Bronchodilator response: Absent Volumes: Total lung capacity: 84 % of predicted at 4.36 L Residual volume: 87 % of predicted at 2.03 L Slow vital capacity: 84 % of predicted at 2.33 L Expiratory reserve volume: 94 % of predicted at 0.66 L Diffusion capacity: Mildly decreased, corrects to normal after adjustment for alveolar ventilation. Impression: No obstructive or restrictive ventilatory defect. No bronchodilator response. Isolated defect in diffusion capacity suggests pulmonary edema. Clinical correlation is advised. MTDD
== END 2025-01-21 09:58 | disposition home or self-care (01) ==
LOC: HO.RESP 09:57
PROVIDERS: PCP Internal Medicine; Visit Provider Hospitalist
DX: C34.90 Malignant neoplasm of unspecified part of unspecified bronchus or lung (principal)
CPT/HCPCS: 94010; 94640; 94727; 94729

== ENCOUNTER → 2025-01-21 14:39 | Outpatient (BNV) | payer MEDICARE, BC, SELFPAY | PROVIDERS: PCP Internal Medicine; Visit Provider Internal Medicine Pulmonary Disease | DX: R91.8 Other nonspecific abnormal finding of lung field (principal) | CPT/HCPCS: 94060; 94727; 94729 ==

== ENCOUNTER 2025-01-29 09:52 | Outpatient (AMB) | payer MEDICARE, BC, SELFPAY ==
[2025-01-29 09:54] VITALS: BP 114/52; PULSE 78; O2SAT 98; BMI 23.3
--- NOTE | 2025-01-29 09:54 | MHC.OFFVIS ---
Vital Signs 01/29/25 09:54 Height 5 ft 6 in Weight 144 lb 6.444 oz BMI 23.3 BP 114/52 L Blood Pressure Location Lt brachial Position Sitting Pulse 78 Pulse Source Pulse Oximeter Pulse Oximetry (%) 98 Oxygen Delivery Method Room Air Intake Visit Reasons: Lung Nodules/Biopsy Follow Up Allergies levofloxacin (Levaquin) Allergy (Unknown, Verified 01/29/25 10:00) rash Sulfa (Sulfonamide Antibiotics) Allergy (Unknown, Verified 01/29/25 10:00) very sick sulfacetamide Allergy (Unknown, Verified 01/29/25 10:00) very sick tetracycline Allergy (Unknown, Verified 01/29/25 10:00) rash HPI Comments Details: The patient is an 84-year-old woman presenting with abnormal CT scan of the chest. The patient states many years ago she was evaluated at [facility] for a connective tissue disease. At the time was not clear if this was a mixed connective tissue condition. Her symptoms however improved dramatically and the patient did not require any more follow-up. More recently since 2020 the patient started developing worsening cough, nonproductive in nature in the morning mild in severity and subsequently in the evening she will notice and also some coughing. But he did really limit her respiratory capacity and her activities of daily living. She did follow-up with her primary care doctor and she did comment on the cough and she had an x-ray done back in May that was found to be abnormal with some bronchitis looking airways with peribronchial coughing and also some nodular densities. Patient had a repeat chest x-ray after treating her with antibiotics and showed some improvement of the peribronchial coughing, but, she still had the nodular densities in some interstitial changes. Therefore the patient underwent a CT scan of the chest at [facility] which we personally reviewed. The CT scan was pretty involved with significant reticulonodular densities in the periphery consistent with pulmonary fibrosis affecting her left lung more than her right lung in the briefly but also in the bases. In addition to this the patient had evidence of bronchiectasis tree in bud in addition to this nodular densities on her right lung more than the left. The etiology of these nodular densities some clear at this time although smoldering infections is in the differential. On further questioning she denies any mold in the house. She has had a CT in the past but nothing recent. She does have allergies to pollen sometimes. She has an allergy testing. The patient denies any other exposures to fumes or toxins although she lived in a house of smokers and had significant secondhand smoke to she left her home. She does complain of some difficulty swallowing. On her CT scan with his see dilations of the esophagus. She also has a small mouth in addition to Raynaud's phenomenon although the related to potential connective tissue conditions. She will require additional blood work and also a sputum culture for AFB to assess her for non tuberculosis mycobacterial infections. 12/14/2022 the patient is here for a pulmonary follow-up visit. The patient overall is doing about the same. Continues to have issues with cough. Typically nonproductive in nature worse in the morning. We were able to get a sputum for AFB which was negative. She could not get a sample good enough for sputum culture for Gram stain. Patient did have a repeat CT scan of the chest again demonstrating the pulmonary nodules and also the reticular changes consistent pulmonary fibrosis. No significant changes when compared to her CT scan from August. The patient also had blood work demonstrating the positive SHIVA and subsequently positive Sjogren's antibodies. With a positive SSA. The patient does complaint of dry eyes and dry mouth. 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 Therefore is reasonable to start treating her with Plaquenil. At least there is no evidence of any ground-glass opacities or evidence of active disease. Some of the nodular densities however appear to be more infectious in appearance. Although she has a negative AFB culture this is usually not enough. We did talk about a bronchoscopy the patient is not interested at this time. Will plan to repeat the sputum culture. If the sputum culture continues to be negative if the patient does need to start immunosuppressive therapy then at point I would make a point to try to get deep cultures to rule out infection and avoid worsening smoldering infections on immunosuppressive therapy. In addition to this the patient is having a difficulty time swallowing. I heard the esophagus is a dilated on her CT scan again. This suggests some degree of dysmotility or achalasia. 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 03/16/2023 the patient is here for pulmonary follow-up visit. She continues to be about the same. Does have a nonproductive cough intermittently. Mild in severity. 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 Her barium swallows indeed it appeared that she had tertiary contractions but also the barium became stagnant midesophagus. She states that her GI doctor retired. Will send her to a GI doctor for the same practice since she already has records there. The patient also had sputum cultures sent for AFB and which was positive. She has non tuberculosis mycobacterial disease which goes along with her significant bronchiectasis. She also has interstitial lung disease noted on her CT scan her. May be multifactorial. The patient will be provided with an Acapella valve. Will help her to learn how to use it this will provide her some relief of mucous plugging and hopefully provide us with a better sample. Will hold off on treating the mycobacterial disease as of yet specially since be very difficult for the patient to tolerate the therapy. Will go ahead and request a 2nd sputum to confirm the findings and also will request a repeat CT scan to address her significant pulmonary nodules interstitial lung disease. 06/13/2023 the patient is here for a pulmonary follow-up visit. Overall the patient has been doing little better. She did get the Acapella valve and she has been using it. She has been able to expectorate a lot better. She has been able to clear her lungs more. Denies any shortness breath or any other issues. The patient did have a repeat CT scan of the chest demonstrating stable interstitial lung changes consistent with some degree of pulmonary fibrosis primarily the periphery in the basis in addition to waxing waning pulmonary nodules consistent with her likely mycobacterial disease. Will try to get another sputum culture. He right now will not treat her mycobacterial disease unless her symptoms worsen or if her CT scan worsens. Date fibrotic changes are also stable. I do believe that they are secondary to a connective tissue disease process. If there is any evidence of any activity of the connective tissue disease that should be treated to minimize on the pulmonary manifestations. 01/17/2024 the patient is here for a pulmonary follow-up visit. Overall the patient has been feeling better. She has been monitoring closely her reflux diet and she has following the reflux precautions. She is sleeping with the wedge pillow. This has been helpful. Her chest congestion is decreased. She does use the Acapella valve. We did review her last CT scan of the chest done in 05/28/2023 with significant interstitial lung disease pulmonary nodules and bronchiectatic changes along with mucus plugging. Will plan to repeat the CT scan sometime in the winter. We did review her CT scan of the chest also demonstrating the dilated esophagus. She will be careful with her swallow. We talked about alternate solids and liquids. The patient already has small meals and bites. Therefore, she continues to do well will have her get a CT scan and follow-up sometime in the early spring of 2024. If he has any new issues she will call for an earlier is . 09/09/2024 the patient is here for a pulmonary follow-up visit. Overall she is doing well denies any shortness of breath or cough denies any weight loss or night sweats. She did have a CT scan of the chest and we did reviewed. I also did review the CT scan she had back in 05/28/2023. Both were done at [facility]. Seems that she has progressive disease for both the interstitial disease in the periphery of the lungs in addition to that some nodular densities primarily in the right hemithorax. There is 1 nodule that measures about 1.2 cm in size. There appears to be a separate entity and therefore need to consider the possibility of scar tumor or a malignant process and may be growing amongst interstitial process. She has another nodular ill-defined patchy density also in the right lower lobe. Patient also has evidence of bronchiectasis. I do not appreciate a dilation of the esophagus are she had before. In view of the 1.2 cm nodular density indeed malignancies in differential. Will going to go ahead and request a PET scan to better address this nodule and see if we should move along with the biopsy. In the meantime will treated with azithromycin 3 times a week for the non tuberculosis mycobacterial disease to decrease any significant burden of disease prior to the PET scan. Will follow-up in 3 months but will talk after the PET scan. She understands that if the PET scan is significantly abnormal we need to look into a performing a biopsy. Likely a CT-guided biopsy based on the location of this nodule. If she has any issues prior to that will call for an earlier evaluation. 11/10/2024 the patient is here for pulmonary follow-up visit. Overall the patient has been doing well. Denies any significant weight loss or night sweats or decreased appetite. She did complete the antibiotics 3 times a week as prescribed as a treatment empirically for smoldering infection such as mycobacterium disease. Ultimately underwent a PET scan more recently that we personally reviewed together. We also looked at a CAT scan previously to the PET scan back in August and also looked at a CT scan she had back in May 2024. The patient does have some FDG activity of the pulmonary nodules although mild between 2 - 3 maximum SUV FDG activity. Based on the fact that the pulmonary nodules appear to be progressing primarily in the right hemithorax when compared to 2022 my inclination is to recommend a biopsy this time. Although the activities mild the nodules look abnormal. They also did not respond to the antibiotic empiric therapy. The patient is agreeable to a biopsy. She is going to be going on a trip to [place] and when she comes back will plan to do a biopsy at [facility] as per her preference. The patient follow-up after the biopsy with us to review the results. 01/29/2025 the patient is here for pulmonary follow-up visit. 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 Based on the PET there is no other significant activity so therefore appears to be an isolated pulmonary malignant process. She did undergo pulmonary function studies demonstrating normal lung capacity which is reassuring. And today she will be seen a thoracic surgeon regarding the possibility of a lung resection with curative intent. I did answer all her questions. From a respiratory status the patient is doing well. Will plan to follow-up in 3-4 months. If she has any issues prior to this she will call for any questions. [facility] Medical History Pulmonary nodule 1 cm or greater in diameter Mycobacterial disease Screening for viral disease Dysphagia ILD (interstitial lung disease) Annual physical exam Abnormal mammogram of right breast Mitral regurgitation Aortic insufficiency Normal colonoscopy Mammogram normal Hair loss Fatigue Skin cancer, basal cell History of mammogram H/O bone density study Osteoporosis Thrombophlebitis Atrophic vaginitis Palpitations Surgical History H/O colonoscopy No pertinent past surgical history Family History Father No problems noted. Mother No problems noted. Sister Rheumatoid arthritis Sister Hereditary spastic paraplegia Social History Household Members: Spouse Housing: House Alcohol intake: current Alcohol intake frequency: does not drink Patient Tobacco Use Status: Never used Tobacco e-Cigarette/Vaping Use: Never Used service: No Current occupational status: retired Cognitive needs: No Hearing needs: No Vision needs: Yes Review of Systems Const Denies chills, Denies fatigue, Denies fever(s), Denies weight gain and Denies weight loss Eyes Reports dry eyes ENT Denies dizziness Card Denies chest pain, Denies leg edema, Denies lightheadedness, Denies palpitations, Denies dyspnea on exertion, Denies orthopnea and Denies other Resp Reports cough, Denies dyspnea on exertion and Denies wheezing GI Denies hematochezia and Denies change in stool character Musc Denies abnormal gait, Denies muscle weakness, Denies numbness, Denies radiating pain into limb and Denies tingling Skin/Breast Denies rash Neuro Denies abnormal gait, Denies dizziness, Denies numbness and Denies tingling Endo Denies fatigue and Denies palpitations Valentino/Lymph Denies easy bleeding, Denies easy bruising and Denies lymphadenopathy Aller/Immun Denies wheezing Physical Exam Vital Signs: Last Vital Signs Pulse 78 01/29/25 09:54 BP 114/52 L 01/29/25 09:54 Pulse Ox 98 01/29/25 09:54 Oxygen Delivery Method Room Air 01/29/25 09:54 BMI result Body Mass Index 23.3 Const General: no acute distress HEENT Head: Yes normal to inspection Ears: hearing grossly normal bilaterally Neck Neck: Yes no lymphadenopathy and Yes supple Chest Chest palpation & inspection: normal inspection of the chest Resp Effort & Inspection: normal respiratory effort Auscultation: diminished lung sounds Cardio Rhythm: regular rhythm Heart sounds: S1 normal heart sound present and S2 normal heart sound present GI Palpation (GI): Soft to palpation Auscultation: normal bowel sounds Skin General skin exam: no rashes or lesions noted Extrem General: Yes no clubbing, cyanosis or edema and Yes other (sclerodactaly) Assessment & Plan Assessment & Plan (1) Lung nodules: Comment: Chest CT 08/31, 05/2023 waxing and waning Code(s): R91.8 - Other nonspecific abnormal finding of lung field Category: Medical (2) Bronchiectasis: Comment: Stable chest CT, Code(s): J47.9 - Bronchiectasis, uncomplicated Category: Medical Qualifiers: Bronchiectasis type: uncomplicated Qualified Code(s): J47.9 - Bronchiectasis, uncomplicated (3) ILD (interstitial lung disease): Comment: reticular changes in the periphery/basilar. ?CTD related ILD. No progression 08/31 to 05/31, patient is scheduled for a repeat CT of the chest 07/2023 and follows up with Dr. Farnsworth Code(s): J84.9 - Interstitial pulmonary disease, unspecified Category: Medical (4) Connective tissue disease: Code(s): M35.9 - Systemic involvement of connective tissue, unspecified Category: Medical (5) Dysphagia: Code(s): R13.10 - Dysphagia, unspecified Category: Medical Qualifiers: Dysphagia type: esophageal phase Qualified Code(s): R13.19 - Other dysphagia (6) Sjogren's syndrome with lung involvement: Code(s): M35.02 - Sjogren syndrome with lung involvement Category: Medical (7) Mycobacterial disease: Code(s): A31.9 - Mycobacterial infection, unspecified Category: Medical (8) Pulmonary nodule 1 cm or greater in diameter: Code(s): R91.1 - Solitary pulmonary nodule Category: Medical (9) Lung cancer: Code(s): C34.90 - Malignant neoplasm of unspecified part of unspecified bronchus or lung Category: Medical Qualifiers: Laterality: unspecified laterality Lung location: unspecified part of lung Qualified Code(s): C34.90 - Malignant neoplasm of unspecified part of unspecified bronchus or lung Plan CPT with acapella valve BID New dx of lung CA, referred to Thoracic surgery for resection for curative intent F/U 4 months Coding Level of Care Code Est Pt Level 5 (97519) Complex EM visit Add On G2211 Diagnoses Lung nodules R91.8 Bronchiectasis without complication J47.9 Bronchiectasis type: uncomplicated ILD (interstitial lung disease) J84.9 Connective tissue disease M35.9 Esophageal dysphagia R13.19 Dysphagia type: esophageal phase Sjogren's syndrome with lung involvement M35.02 Mycobacterial disease A31.9 Pulmonary nodule 1 cm or greater in diameter R91.1 Malignant neoplasm of lung, unspecified laterality, unspecified part of lung C34.90 Laterality: unspecified laterality Lung location: unspecified part of lung Time Spent (min) 30
--- OUTSIDE RECORDS SUMMARY | 2025-01-29 10:37 | XMS_ITS | Clinical Summary ---
Author Organization [facility] [address] [facility] Address [address] [place] [address] Phone Care Team Providers Care Resistor Winder Name Role Phone Yaneli James MD Primary Care Provider [phone] Encounters Date Type Department Care Team Description 01/21/2025 Telephone Thoracic Surgery [address] [id number] Codie Sam RN from Last 3 [...] 07/19/2022 11:25 AM EST Plan of Treatment Upcoming Encounters Date Type Department Care Team (Late st Contact Info) Description 01/29/2025 2:00 PM EDT Consult Thoracic Surgery [facility] [address] [id number] Jammie Jones MD [address] [address] Health Maintenance Due Date Last Done Comments DTaP,Tdap,and Td Vaccines (1 - Tdap) 1959 Pneumococcal Vaccine: 50+ Ye ars (1 of 1 - PCV) 11/25/1991 Zoster Vaccines (1 of 2) 11/25/1991 RSV Immunization Adult Patie nts (1 - 1-dose 75+ series) 2016 Falls Risk Assessment 06/11/2022 Medicare Annual Wellness Visit 06/11/2022 Osteoporosis Screening (Bone Density Screening) 06/11/2022 Social Influencers of Health Screening 06/11/2022 COVID-19 Vaccine (1 - 2023-2 5 season) 2024 Depression Screening 07/09/2024 Influenza [...] on patient's age to complete this topic Insurance MEDICARE Care Teams Resistor Winder Relationship Specialty Start Date End Date Yaneli James MD PCP - General 11/12/14
== END 2025-01-29 10:25 | disposition home or self-care (01) ==
LOC: HO.HPS 09:53
PROVIDERS: PCP Internal Medicine; Visit Provider Hospitalist
DX: R91.8 Other nonspecific abnormal finding of lung field (principal); J47.9 Bronchiectasis, uncomplicated; J84.9 Interstitial pulmonary disease, unspecified; M35.9 Systemic involvement of connective tissue, unspecified; R13.19 Other dysphagia; M35.02 Sjogren syndrome with lung involvement; A31.9 Mycobacterial infection, unspecified; R91.1 Solitary pulmonary nodule; C34.90 Malignant neoplasm of unspecified part of unspecified bronchus or lung
CPT/HCPCS: 99214; G2211

== ENCOUNTER → 2025-01-29 09:52 | Outpatient (BNVA) | payer MEDICARE, BC, SELFPAY | PROVIDERS: PCP Internal Medicine; Visit Provider Hospitalist | DX: R91.8 Other nonspecific abnormal finding of lung field (principal); J47.9 Bronchiectasis, uncomplicated; J84.9 Interstitial pulmonary disease, unspecified; M35.9 Systemic involvement of connective tissue, unspecified; R13.19 Other dysphagia; R91.1 Solitary pulmonary nodule; C34.90 Malignant neoplasm of unspecified part of unspecified bronchus or lung | CPT/HCPCS: 99212 ==

== ENCOUNTER 2025-05-25 10:04 | Outpatient (AMB) | payer MEDICARE, BC, SELFPAY ==
--- NOTE | 2025-05-25 10:44 | AM.OFFWIN_ITS ---
Intake Vital Signs 05/25/25 10:45 Height 5 ft 6 in Weight 145 lb BMI 23.4 BP 130/68 Blood Pressure Location Lt brachial Position Sitting Pulse 79 Pulse Source Pulse Oximeter Pulse Oximetry (%) 99 Oxygen Delivery Method Room Air Intake Visit Reasons: EP-uti Intake Note: Patient presents c/o urinary symptoms since yesterday. Patient Tobacco Use Status: Never used Tobacco Allergies levofloxacin (Levaquin) Allergy (Unknown, Verified 05/25/25 10:53) rash Sulfa (Sulfonamide Antibiotics) Allergy (Unknown, Verified 05/25/25 10:53) very sick sulfacetamide Allergy (Unknown, Verified 05/25/25 10:53) very sick tetracycline Allergy (Unknown, Verified 05/25/25 10:53) rash Do you need a note to return to daycare/school/sports/work: No HPI HPI Comments History of Present Illness Details History - The patient is an 84-year-old female p resenting with symptoms suggestive of a urinary tract infection. - She experienced urgency and pressure a t the end of urination starting the previous day, with no fever, back pain, or hematuria. - She has had UTIs in the past and it fe els like another one. - The patient has a history of urinary t ract infections and performed a home test, which was positive. - She also reported shortness of breath due to prior lung surgery, unrelated to the current visit. - She denies CP, vaginal discharge, vagi nal itch or bleeding. Physical Exam General: Cooperative, healthy appearing, comfortable, no acute distress and well developed Cardiac: Normal S1 and S2. RRR, no M/R/G noted. Respiratory: Normal respiratory effort and able to speak in complete sentences. Clear to auscultation bilaterally. No w/r/r noted. Skin: No rashes or lesions noted. GI: Normal inspection. Normal BS noted. Soft, non-tender, non-distended. No TTP of all 4 quadrants. No guarding or rebound tenderness noted. Back: Negative CVA bilaterally Patient was informed and verbally consented to the use of an ambient scribe for clinic note documentation during this visit. [facility] Medical History Pulmonary nodule 1 cm or greater in diameter Mycobacterial disease Screening for viral disease Dysphagia ILD (interstitial lung disease) Annual physical exam Abnormal mammogram of right breast Mitral regurgitation Aortic insufficiency Normal colonoscopy Mammogram normal Hair loss Fatigue Skin cancer, basal cell History of mammogram H/O bone density study Osteoporosis Thrombophlebitis Atrophic vaginitis Palpitations Surgical History H/O colonoscopy No pertinent past surgical history Family History Father No problems noted. Mother No problems noted. Sister Rheumatoid arthritis Sister Hereditary spastic paraplegia Social History Household Members: Spouse Housing: House Alcohol intake: current Alcohol intake frequency: does not drink Patient Tobacco Use Status: Never used Tobacco e-Cigarette/Vaping Use: Never Used service: No Current occupational status: retired Cognitive needs: No Hearing needs: No Vision needs: Yes Review of Systems Const All systems reviewed & are unremarkable except as noted in HPI and below Physical Exam Vital Signs: Last Vital Signs Pulse 79 05/25/25 10:45 BP 130/68 05/25/25 10:45 Pulse Ox 99 05/25/25 10:45 Oxygen Delivery Method Room Air 05/25/25 10:45 BMI result Body Mass Index 23.4 Results AMB Urinalysis, Automated UA Leukoctes 125 Amee/uL Last Edit by Lorie Aranda CMA on 05/25/25 10:59 UA Nitrite Positive Last Edit by Lorie Aranda CMA on 05/25/25 10:59 UA Urobilinogen 0.2 mg/dL Last Edit by Lorie Aranda CMA on 05/25/25 10: 59 UA Protein 30 mg/dL Last Edit by Lorie Aranda CMA on 05/25/25 10:59 UA pH 6.0 Last Edit by Lorie Aranda CMA on 05/25/25 10:59 UA Blood 200 Leonidas/uL Last Edit by Lorie Aranda CMA on 05/25/25 10:59 UA Specific [place] 1.020 Last Edit by Lorie Aranda CMA on 05/25/25 10 :59 UA Ketone Negative Last Edit by Lorie Aranda CMA on 05/25/25 10:59 UA Bilirubin 0 mg/dL Last Edit by Lorie Aranda CMA on 05/25/25 10:59 UA Glucose 0 mg/dL Last Edit by Lorie Aranda, [facility] on 05/25/25 10:59 Results Reviewed Results Reviewed: Laboratory Last Values Urine pH (Auto) 6.0 05/25/25 10:58 Specific [place] (Auto) 1.020 05/25/25 10:58 Urine Protein (Auto) 30 mg/dL H* 05/25/25 10:58 Glucose (UA)(Auto) 0 mg/dL 05/25/25 10:58 Urine Ketones (Auto) Negative 05/25/25 10:58 Urine Blood (Auto) 200 Leonidas/uL H* 05/25/25 10:58 Urine Nitrite (Auto) Positive 05/25/25 10:58 Urine Bilirubin (Auto) 0 mg/dL 05/25/25 10:58 Urine Urobilinogen (Auto) 0.2 mg/dL 05/25/25 10:58 Leukocyte Esterase (Auto) 125 Amee/uL H* 05/25/25 10:58 Assessment & Plan Assessment & Plan (1) Dysuria: Code(s): R30.0 - Dysuria Plan Most likely UA 2+ leuko, +nit, 1+ protein, 3+ blood Plan - A urine culture was ordered, and antibiotics were prescribed. - The patient was advised to increase fluid intake, including cranberry juice, and to use Tylenol or Motrin for discomfort. - The patient was instructed to contact the clinic if symptoms worsen or if she develops a fever. - will call with the results and adjust her treatment as necessary - follow up as needed Orders: Orders AMB Urinalysis Automated Today Z13.9 - Encounter for screening, unspecified Urine Culture Today N39.0 - Urinary tract infection, site not specified Medications: New cefuroxime axetil 500 mg PO Q12H 10 tabs 0RF Coding Level of Care Code Est Pt Level 3 (65421) Diagnoses Dysuria R30.0
[2025-05-25 10:45] VITALS: BP 130/68; PULSE 79; O2SAT 99; BMI 23.4
--- OUTSIDE RECORDS SUMMARY | 2025-05-25 20:53 | XMS_ITS | Encounter Summary ---
Author Organization [facility] Address [address] [place] [address] Care Team Providers Care [employer] Name Role Phone Yaneli James MD Primary Care Provider [phone] Encounter Details Date Type Department Care Team ([facility] st Contact Info) Description 05/04/2025 Telephone Thoracic Surgery - [place] [address] [place] [id number] Tesha Sood MA Social History Tobacco Use Types Packs/Day Years Used Date Smoking Tobacco: Former Cigarettes [phone] Smokeless Tobacco: Never Alcohol Use Standard Drinks/Week Comments Never 0 (1 standard drink = 0.6 oz pure alcohol) quit one year ago from drinking wine Interpersonal Safety Answer Date Record ed Physical Abuse Unrecognized value 02/24/2025 Verbal Abuse Unrecognized value 02/24/2025 Comments No Sex and Gender Information Value Date Recorded Sex Assigned at Female 02/11/2025 9:38 PM EDT Legal Sex Female 10:54 PM EST Gender Identity Not on file Sexual Orientation Not on file documented as of this encounter Progress Notes * Codie Sam RN - 05/05/2025 12:23 PM EDT Spoke to patient and she has had the cough for about 3 weeks. She said the cough usually only happens about one to two times daily and about 4:30-5:00 pm. It can last about 10 to 30 minutes. Sometimes she brings up a white to yellow mucous. No fever at all, she says she feels great otherwise. She does have some seasonal allergies but mostly that affect her eyes and nose. She had started the Pepcid after her last appointment with Michael and it has helped, so she no longer feels that gastric upsetanymore. I did advise that she see her Pulmonary MD and be evaluated. She will call and get an apptwith them. * Tesha Sood MA - 05/04/2025 2:40 PM EDT Patient called stating she has a cough for the past 3-4 weeks, turns into a coughing fit. It lasts anywhere from 10 min - half hour. She denies any fever, she said she feels fine. States has phlegm white/beige, she would like to speak with you when you have a moment at [phone] documented in this encounter Plan of Treatment Not on file documented as of this encounter Visit Diagnoses Not on filedocumented in this encounter Care Teams [employer] Relationship Specialty Start Date End Date Yaneli James MD [address] [place] [address] PCP - General 11/12/14 documented as of this encounter
--- OUTSIDE RECORDS SUMMARY | 2025-05-25 20:54 | XMS_ITS | Clinical Summary ---
Author Organization [facility] [address] [facility] Address [address] [place] [address] Phone Care Team Providers Care Podiatry Teacher Name Role Phone Yaneli James MD Primary Care Provider [phone] Allergies Active Allergy Reactions Criticality Noted Date Comments Levofloxacin 01/29/2025 Sulfa (Sulfonamide Antibiotics) 01/07 Sulfacetamide 01/29/2025 Tetracycline 01/29/2025 Medications ascorbic acid (Vitamin C) 1,000 mg tablet Take 0.5 tablets (500 mg total) by mouth 1 (one) time each day. 4 Active CALCIUM CITRATE, BULK, MISC Take 630 mg by mouth. 4 Active omega 7-lpo-cwy-fish oil (Fish OiL) 1,000 (120-180) mg capsule Take 1 capsule (1,000 mg total) by mouth. 4 Active cranberry extract 650 mg capsule Take 650 mg by mouth. In apple sauce 4 Active MULTIVITAMIN ORAL 0 Refills, Maintenance, 04/28/14 2:38:19 PM EDT 4 Active carvediloL (COREG) 3.125 mg tablet Take 1 tablet (3.125 mg total) by mouth 2 (two) times a day. Active Restasis 0.05 % ophthalmic emulsion Administer 1 drop into both eyes 2 (two) times a day. 5 Active estradioL (VAGIFEM) 10 mcg tablet vaginal tablet 1 tablet (10 mcg total). 5 Active Denta 5000 Plus 1.1 % cream 1 (one) time each day. 5 Active mirabegron (MYRBETRIQ) 25 mg 24 hr tablet Take by mouth 1 (one) time each day. Active glucosam/darlene-m sm1/C/andrew/bosw (GLUCOSAMINE-CH ONDROITIN 3X ORAL) Take 2 tablets by mouth 1 (one) time each day. Active melatonin 3 mg tablet Take 1 tablet (3 mg total) by mouth at bedtime as needed for sleep (patient takes 4.5 mg). Active Active Problems Problem Noted Date Diagnosed Date Nonrheumatic mitral valve regurgitation 02/11/20 Abnormal ECG 02/10/2025 Mild aortic valve regurgitation 02/05/2025 Primary cancer of right lowe r lobe of lung (CMS/HCC V24, CMS/HCC V28) 01/29/2025 Assessment & Plan (03/11/2025 12:32 PM EDT): Ms. 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 While in office we did review her pathology of her right lower lobe superior segmentectomy which was consistent with invasive acinar adenocarcinoma staging pT1c N0 or stage Ia acinar adenocarcinoma. She was informed that due to her low staging she would not require a referral to medical oncology and instead would continue to follow with the thoracic surgery department moving forward with a chest CT scan surveillance every 6 months for the first 2 years following her surgery. Once completion of 2-year surveillance is performed her chest CT surveillance scans will be increased to yearly. Her next chest CT surveillance scan will be due in August 2025 and have a visit at the thoracic surgery department thereafter to discuss results. Pulmonary nodule 01/29/2025 Interstitial lung disease (CMS/HCC V24, CMS/HCC V28) 01/29/2025 Encounters Date Type Department Care Team Description 05/04/2025 Telephone Thoracic Surgery - [place] [address] [facility] [address] [place] [phone] Tesha Sood [place] 03/11/2025 2:00 PM EDT Office Visit Thoracic Surgery - [place] 299 [facility] [address] [place] [phone] Bryson Fernandez, PA Primary cancer of right lower lobe of lung ([facility] V24, [facility] V28) (Primary Dx) 03/11/2025 1:13 PM EDT - 03/11/2025 11:59 PM EDT Hospital Encounter [facility] Xray [address] [place] [phone] Primary cancer of right lower lobe of lung ([facility] V24, [facility] V28); Pulmonary nodule Discharge Disposition: Home or Self Care 02/24/2025 12:33 PM EDT Anesthesia Event [facility] Main OR [address] [place] [phone] Tricia Saldana MD Chang, Daniel J, MD 02/24/2025 11:30 AM EDT - 02/24/2025 3:[address] [facility] Main OR [address] [place] [phone] Jammie Jones MD DAVINC Navigational bronchoscopy w/ endobronchial biopsy and dye marking, right lower lobe superior segmentectomy & right upper lobe wedge resection x2 [67666 (CPT ) +4 more] 02/24/2025 9:59 AM EDT - 02/26/2025 3:10 PM EDT Hospital Encounter [facility] Intermediate Care Unit B [address] [place] [phone] Jammie Jones MD Japaridze, Anna, MD Primary cancer of right lower lobe of lung ([facility] V24, [facility] V28); Pulmonary nodule Discharge Disposition: Home or Self Care from Last 3 Months Surgical History Surgery Date Site/Laterality Comments COLONOSCOPY CATARACT EXTRACTION MOUTH SURGERY VEIN SURGERY OTHER SURGICAL HISTORY LUNG BIOPSY OTHER SURGICAL HISTORY 02/24/2025 RLL segmentectomy, RUL wedge Medical History Medical History Date Comments Dysphagia mouth is small Fatigue ILD (interstitial lung disea se) ([facility] V24, [facility] V28) Abnormal mammogram of right breast Aortic insufficiency Hair loss Skin cancer, basal cell llung Osteoporosis Thrombophlebitis Palpitations H/O colonoscopy PONV (postoperative nausea and vomiting) Angina pectoris ([facility] V24) pa lpation Heart disease moderate leaky a ortic valve, mild to mod enlarged aorta Reactive airway disease , cancer of upper pulmonary nodule suspicious an lower cancerous with nodes Shortness of breath minimal Diverticulosis GERD (gastroesophageal reflux disease) Hiatal hernia Heart disease hx of LE clots Sjogren syndrome ([facility] V24) Lung cancer ([facility] V24, [facility] V28) RLL Family History Relation Name Status Comments Father Mother Sister Social History Tobacco Use Types Packs/Day Years Used Date Smoking Tobacco: Former Cigarettes 0 1 4 - 1960 Smokeless Tobacco: Never Tobacco Cessation:Counseling Given: Not Answered Alcohol Use Standard Drinks/Week Comments Never 0 [...] on file Sexual Orientation Not on file Obstetrics History Last Filed Vital Signs Vital Sign Reading Time Taken Comments Blood Pressure 148/55 03/11/2025 1:44 PM EDT Pulse 98 03/11/2025 1:44 PM EDT Temperature 36.5 C (97.7 F) 03/11/2025 1:44 PM EDT Respiratory Rate 16 03/11/2025 1:44 PM EDT Oxygen Saturation 95% 03/11/2025 1:44 PM EDT Inhaled Oxygen Concentration - - Weight 63.5 kg (140 lb) 03/11/2025 1:44 PM EDT Height 167.6 cm (5' 6 ) 03/11/2025 1:44 PM EDT Body Mass Index 22.6 03/11/2025 1:44 PM EDT Plan of Treatment Health Maintenance Due Date Last Done Comments COVID-19 Vaccine (#1) 1945 DTaP,Tdap,and Td Vaccines (1 - Tdap) 1959 Pneumococcal Vaccine: 50+ Ye ars (1 of 2 - PCV) 1959 Zoster Vaccines (1 of 2) 1959 RSV Immunization Adult Patie nts (1 - 1-dose 75+ series) 2016 Medicare Annual Wellness Visit 06/11/2022 Osteoporosis Screening (Bone Density Screening) 06/11/2022 Social Influencers of Health Screening 06/11/2022 Depression Screening 07/09/2024 Influenza Vaccine (#1) 2025 Falls Risk Assessment 02/25/2026 02/25/2025 HIB Vaccines Aged Out No longer eligi [...] on patient's age to complete this topic Medical Devices Implanted Type Area Supervisor Aluminum Fabrication Device Identifier Shelf Expiration Date Model / Serial / Lot Sealant Fibrin Vistaseal 10ml - [id number] - [id number] Implanted:Qty : 1 on 02/24/2025 by Jammie Jones MD at [facility] Hemostasis N/A: Chest [employer] [id number] 08/10/2026 [id number] / [id number] / [id number] Sealant Progel Air Pleural 4ml - Sna - [id number] Implanted:Qty : 1 on 02/24/2025 by Jammie Jones MD at [facility] Osteobiologics N/A: Chest CR BARD - DAVOL DIV [id number] 04/08/2026 [id number] / [id number] / [id number] Procedures Procedure Name Priority Date/Time Associated Diagnosis Comments XR CHEST 2 VIEWS Routine 03/11/2025 1:24 PM EDT Primary cancer of right lower lobe of lung (CMS/HCC V24, CMS/HCC V28) Pulmonary nodule COMPLETE BLOOD COUNT Timed 02/26/2025 6:15 AM EDT SST - GOLD Routine 02/26/2025 6:12 AM EDT EXTRA TUBES Routine 02/26/2025 6:12 AM EDT XR CHEST 1 VIEW Routine 02/26/2025 5:44 AM EDT PEP THERAPY Routine 02/25/2025 12:02 PM EDT PEP THERAPY Routine 02/25/2025 10:53 AM EDT PEP THERAPY Routine 02/25/2025 10:53 AM EDT PEP THERAPY Routine 02/25/2025 10:53 AM EDT PEP THERAPY Routine 02/25/2025 10:53 AM EDT XR CHEST 1 VIEW Routine 02/25/2025 6:01 AM EDT MAGNESIUM Routine 02/25/2025 6:00 AM EDT PHOSPHORUS Routine 02/25/2025 6:00 AM EDT BASIC METABOLIC PANEL Routine 02/25/2025 6:00 AM EDT COMPLETE BLOOD COUNT Routine 02/25/2025 6:00 AM EDT MAGNESIUM STAT 02/24/2025 7:10 PM EDT PHOSPHORUS STAT 02/24/2025 7:10 PM EDT BASIC METABOLIC PANEL STAT 02/24/2025 7:10 PM EDT COMPLETE BLOOD COUNT STAT 02/24/2025 7:10 PM EDT XR CHEST 1 VIEW STAT 02/24/2025 5:21 PM EDT PEP THERAPY Routine 02/24/2025 4:57 PM EDT PEP THERAPY Routine 02/24/2025 4:57 PM EDT OXYGEN THERAPY, ADULT Routine 02/24/2025 4:39 PM EDT ..CONCENTRATION Routine 02/24/2025 3:20 PM EDT Primary cancer of right lower lobe of lung (CMS/HCC V24, CMS/HCC V28) Pulmonary nodule ACID FAST BACILLI STAIN Routine 02/24/2025 3:20 PM EDT Primary cancer of right lower lobe of lung (CMS/HCC V24, CMS/HCC V28) Pulmonary nodule CULTURE TISSUE WITH GRAM STAIN Routine 02/24/2025 3:20 PM EDT Primary cancer of right lower lobe of lung (CMS/HCC V24, CMS/HCC V28) Pulmonary nodule CULTURE, AFB AND SMEAR WITH REFLEX TO IDENTIFICATION AND SUSCEPTIBILITY Routine 02/24/2025 3:20 PM EDT Primary cancer of right lower lobe of lung (CMS/HCC V24, CMS/HCC V28) Pulmonary nodule CULTURE FUNGAL, OTHER Routine 02/24/2025 3:20 PM EDT Primary cancer of right lower lobe of lung (CMS/HCC V24, CMS/HCC V28) Pulmonary nodule ..TISSUE GRIND, DIGESTION AND DECONVOLUTION Routine 02/24/2025 2:57 PM EDT Primary cancer of right lower lobe of lung (CMS/HCC V24, CMS/HCC V28) ACID FAST BACILLI STAIN Routine 02/24/2025 2:57 PM EDT Primary cancer of right lower lobe of lung (CMS/HCC V24, CMS/HCC V28) CULTURE TISSUE WITH GRAM STAIN Routine 02/24/2025 2:57 PM EDT Primary cancer of right lower lobe of lung (CMS/HCC V24, CMS/HCC V28) CULTURE, AFB AND SMEAR WITH REFLEX TO IDENTIFICATION AND SUSCEPTIBILITY Routine 02/24/2025 2:57 PM EDT Primary cancer of right lower lobe of lung (CMS/HCC V24, CMS/HCC V28) CULTURE FUNGAL, OTHER Routine 02/24/2025 2:57 PM EDT Primary cancer of right lower lobe of lung (CMS/HCC V24, CMS/HCC V28) TISSUE EXAM Routine 02/24/2025 1:16 PM EDT Primary cancer of right lower lobe of lung (CMS/HCC V24, CMS/HCC V28) Pulmonary nodule TH AN ENDOTRACHEAL(NO CHARGE) Routine 02/24/2025 1:02 PM EDT TH AN ARTERIAL LINE (CHARGE) Routine 02/24/2025 12:54 PM EDT MA BRONCHOSCOPY RIGID/FLEXIBLE INCL FLUORO W/THERAPY ASPIRATION INITIAL 02/24/2025 12:31 PM EDT Primary cancer of right lower lobe of lung (CMS/HCC V24, CMS/HCC V28) Pulmonary nodule Case Notes [facility] [place] THORACOSCOPY SURGICAL WITH REMOVAL OF A SINGLE LUNG SEGMENT 02/24/2025 12:31 PM EDT Primary cancer of right lower lobe of lung (CMS/HCC V24, CMS/HCC V28) Pulmonary nodule Case Notes [facility] [place] BRONCHOSCOPY RIGID/FLEXIBLE COMPUTER ASSISTED IMAGE GUIDED NAVIGATION 02/24/2025 12:31 PM EDT Primary cancer of right lower lobe of lung (CMS/HCC V24, CMS/HCC V28) Pulmonary nodule Case Notes [facility] [place] BRONCHOSCOPY INCL FLUROSCOPIC GUIDANCE W PLCMNT FIDUCIAL MARKER SGL/MULT 02/24/2025 12:31 PM EDT Primary cancer of right lower lobe of lung (CMS/HCC V24, CMS/HCC V28) Pulmonary nodule Case Notes [facility] [place] THORACOSCOPY W DX WEDGE RESECTION F/B ANATOMIC LUNG RESECTION 02/24/2025 12:31 PM EDT Primary cancer of right lower lobe of lung (CMS/HCC V24, CMS/HCC V28) Pulmonary nodule Case Notes [facility] from Last 3 Months Results * XR Chest 2 Views (03/11/2025 1:24 PM EDT) Anatomical Region Laterality Modality Body Radiographic Angelique ging 03/12/2025 7:51 AM EDT Impressions 03/12/2025 7:56 AM EDT Postoperative changes are again seen in the right hemithorax. The large bore right-sided surgical chest tube has been removed since 02/26/2025. Interval development of a small right upper lung pneumothorax with pleural separation measuring 7.8 mm. Atelectasis and/or infiltrate in the right upper lung along the suture line have significantly decreased. Small infiltrates in the right mid to lower lung laterally and at the right lung base have improved. The cardiac silhouette remains borderline enlarged. Code 00219 -------- FINAL REPORT -------- Dictated By: Jones Jones Dictated Date: 03/12/2025 07:51 ET Assigned Physician: Jones Jones Reviewed and Electronically Signed By: Jones Jones Signed Date: 03/12/2025 07:56 ET Workstation ID: [id number] Transcribed By: Self Edit Transcribed Date: 03/12/2025 07:51 ET Narrative 03/12/2025 7:56 AM EDT HISTORY: The patient is an 84-year-old female who underwent right upper lobe wedge resection and right lower lobe segmentectomy on 02/24/2015, resenting for follow- up. FINDINGS: PA and lateral radiographs of the chest demonstrate that the large bore right-sided surgical chest tube has been removed since the prior study performed 02/26/2025. Surgical sutures are again seen in the right perihilar area extending superiorly and laterally. Again seen is minimal dextroscoliosis of the thoracolumbar spine. The cardiac silhouette remains borderline enlarged. The aortic knob is calcified. Atelectasis and/or infiltrate in the right upper lung along the suture line seen on the prior study has significantly decreased. A small right upper lung pneumothorax has developed since the prior study with pleural separation measuring 7.8 mm. Small areas of atelectasis and/or infiltrate in the right mid to lower lung laterally and at the right lung base have improved. The left lung remains clear. Right-sided subcutaneous emphysema has nearly completely resolved. Procedure Note Jones Jones MD - 03/12/2025 HISTORY: The patient is an 84-year-old female who underwent right upperlobe wedge resection and right lower lobe segmentectomy on 02/24/2015,resenting for follow- up. FINDINGS: PA and lateral radiographs of the chest demonstrate that thelarge bore right-sided surgical chest tube has been removed since theprior study performed 02/26/2025. Surgical sutures are again seen in theright perihilar area extending superiorly and laterally. Again seen isminimal dextroscoliosis of the thoracolumbar spine. The cardiac silhouetteremains borderline enlarged. The aortic knob is calcified. Atelectasisand/or infiltrate in the right upper lung along the suture line seen onthe prior study has significantly decreased. A small right upper lungpneumothorax has developed since the prior study with pleural separationmeasuring 7.8 mm. Small areas of atelectasis and/or infiltrate in theright mid to lower lung laterally and at the right lung base haveimproved. The left lung remains clear. Right-sided subcutaneous emphysemahas nearly completely resolved. IMPRESSION: Postoperative changes are again seen in the right hemithorax. The largebore right-sided surgical chest tube has been removed since 02/26/2025.Interval development of a small right upper lung pneumothorax with pleuralseparation measuring 7.8 mm. Atelectasis and/or infiltrate in the rightupper lung along the suture line have significantly decreased. Smallinfiltrates in the right mid to lower lung laterally and at the right lungbase have improved. The cardiac silhouette remains borderline enlarged. Code 09317 -------- FINAL REPORT -------- Dictated By: Jones Jones Dictated Date: 03/12/2025 07:51 ET Assigned Physician: Jones Jones Reviewed and Electronically Signed By: Jones Jones Signed Date: 03/12/2025 07:56 ET Workstation ID: [id number] Transcribed By: Self Edit Transcribed Date: 03/12/2025 07:51 ET us Bryson SAMUELS IMG XR PROCEDURES Final Result * (ABNORMAL) CBC - Every 3 Days (02/26/2025 6:15 AM EDT) Only the most recent of3 resultswithin the time period is included. WBC 10.4 4.8 - 10.8 K/mcL LAB HEMETOLOGY METHOD 02/26/2025 7:29 AM [facility] RBC 3.80 3.80 - 4.80 M/mcL LAB [facility] Hemoglobin 11.2(L) 11.5 - 16.0 g/dL LAB HEMETOLOGY METHOD 02/26/2025 7:29 AM [facility] Hematocrit 33.9(L) 35.0 - 47.0 % LAB HEMETOLOGY METHOD 02/26/2025 7:29 AM [facility] MCV 89.9 79.0 - 98.0 FL LAB HEMETOLOGY METHOD 02/26/2025 7:29 AM [facility] MCH 29.7 27.0 - 32.0 pcg LAB HEMETOLOGY METHOD 02/26/2025 7:29 AM [facility] MCHC 33.0 32.0 - 37.0 g/dL LAB HEMETOLOGY METHOD 02/26/2025 7:29 AM [facility] RDW 13.5 11.0 - 15.0 % LAB HEMETOLOGY METHOD 02/26/2025 7:29 AM [facility] Platelets 148 130 - 400 K/mcL LAB HEMETOLOGY METHOD 02/26/2025 7:29 AM [facility] MPV 10.5 7.0 - 11.0 FL LAB HEMETOLOGY METHOD 02/26/2025 7:29 AM [facility] NRBC 0.0 <1.0 % LAB HEMETOLOGY METHOD 02/26/2025 7:29 AM EDT [facility] NRBC Absolute 0.00 <0.10 K/mcL LAB HEMETOLOGY METHOD 02/26/2025 7:29 AM EDT [facility] Blood Venous blood specimen / Unknown Venipuncture / Unknown 02/26/2025 6:15 AM EDT 02/26/2025 7:17 AM EDT Bryson SAMUELS LAB BLOOD ORDERABLES Fin al Result Performing Organization Address [facility]/ZIP Co de Phone Number [facility] [address] [place] [address], [place] [phone] * SST tube (02/26/2025 6:12 AM EDT) Extra Tube Hold for add-ons. 02/26/2025 9:01 AM EDT [facility] Comment:Auto resulted. Blood Venous blood specimen / Unknown 02/26/2025 6:12 AM EDT 02/26/2025 7:18 AM EDT Ness Renner MD LAB BLOOD ORDERABLES Final Res ult Performing Organization Address [facility] Co de Phone Number [facility] [address] [place] [address], [place] [phone] * XR Chest 1 View (02/26/2025 5:44 AM EDT) Only the most recent of3 resultswithin the time period is included. Anatomical Region Laterality Modality Body Radiographic Angelique ging 02/26/2025 9:23 AM EDT Impressions 02/26/2025 9:24 AM EDT FINDINGS/IMPRESSION: Postoperative changes at the right hilum with opacity in the right mid to upper lung zone. Right chest tube remains in place. Right pneumothorax has resolved. Cardiac silhouette and bones are stable. Air in the right lateral chest wall is unchanged. -------- FINAL REPORT -------- Dictated By: ANTONY CRUZ Dictated Date: 02/26/2025 09:23 ET Assigned Physician: ANTONY CRUZ Reviewed and Electronically Signed By: ANTONY CRUZ Signed Date: 02/26/2025 09:24 ET Workstation ID: [id number] Transcribed By: Self Edit Transcribed Date: 02/26/2025 09:23 ET Narrative 02/26/2025 9:24 AM EDT XR CHEST 1 VIEW INDICATION: Shortness of breath, postoperative chest TECHNIQUE: XR CHEST 1 VIEW COMPARISON: 02/25/2025 Procedure Note Antony Cruz MD - 02/26/2025 XR CHEST 1 VIEW INDICATION: Shortness of breath, postoperative chest TECHNIQUE: XR CHEST 1 VIEW COMPARISON: 02/25/2025 IMPRESSION: FINDINGS/IMPRESSION: Postoperative changes at the right hilum with opacityin the right mid to upper lung zone. Right chest tube remains in place.Right pneumothorax has resolved. Cardiac silhouette and bones are stable.Air in the right lateral chest wall is unchanged. -------- FINAL REPORT -------- Dictated By: ANTONY CRUZ Dictated Date: 02/26/2025 09:23 ET Assigned Physician: ANTONY CRUZ Reviewed and Electronically Signed By: ANTONY CRZU Signed Date: 02/26/2025 09:24 ET Workstation ID: [id number] Transcribed By: Self Edit Transcribed Date: 02/26/2025 09:23 ET Bryson SAMUELS IMG XR PROCEDURES Final Result * Phosphorus (02/25/2025 6:00 AM EDT) Only the most recent of2 resultswithin the time period is included. Phosphorus 3.9 2.5 - 4.5 mg/dL LAB CHEMISTRY METHOD 02/25/2025 7:53 AM EDT [facility] Blood Venous blood specimen / Unknown Venipuncture / Unknown 02/25/2025 6:00 AM EDT 02/25/2025 6:16 AM EDT Bryson SAMUELS LAB BLOOD ORDERABLES Fin al Result Performing Organization Address [facility]/ZIP Co de Phone Number [facility] [address] [place] [address], [place] [phone] * Magnesium (02/25/2025 6:00 AM EDT) Only the most recent of2 resultswithin the time period is included. [facility] Magnesium 2.1 1.9 - 2.6 mg/dL LAB CHEMISTRY METHOD 02/25/2025 7:53 AM EDT [facility] Blood Venous blood specimen / Unknown Venipuncture / Unknown 02/25/2025 6:00 AM EDT 02/25/2025 6:16 AM EDT Bryson SAMUELS LAB BLOOD ORDERABLES Fin al Result Performing Organization Address [facility] de Phone Number [facility] [address] [place] [address], [place] [phone] * (ABNORMAL) Basic metabolic panel (02/25/2025 6:00 AM EDT) Only the most recent of2 resultswithin the time period is included. [facility] Sodium 135 133 - 145 mmol/L LAB CHEMISTRY METHOD 02/25/2025 7:53 AM [facility] Potassium 4.7 3.5 - 5.5 mmol/L LAB CHEMISTRY METHOD 02/25/2025 7:53 AM EDT [facility] Chloride 102 96 - 110 mmol/L LAB CHEMISTRY METHOD 02/25/2025 7:53 AM T [facility] CO2 28 21 - 32 mmol/L LAB CHEMISTRY METHOD 02/25/2025 7:53 AM EDT [facility] Anion Gap 5 3 - 11 LAB CHEMISTRY METHOD 02/25/2025 7:53 AM EDT [facility] Glucose 138(H) 70 - 100 mg/dL LAB CHEMISTRY METHOD 02/25/2025 7:53 AM EDT [facility] BUN 14 5 - 25 mg/dL LAB CHEMISTRY METHOD 02/25/2025 7:53 AM EDT [facility] Creatinine 0.63 0.50 - 1.10 mg/dL LAB CHEMISTRY METHOD 02/25/2025 7:53 AM EDT [facility] eGFR 88 >=60 mL/min/1. 73m2 LAB CHEMISTRY METHOD 02/25/2025 7:53 AM EDT [facility] Comment:Calculation based on the Chronic Kidney Disease Epidemiology Collaboration (CKD-EPI) equation refit without adjustment for race. BUN/Creatinine Ratio 22.2 LAB CHEMISTRY METHOD 02/25/2025 7:53 AM [facility] Calcium 8.4(L) 8.5 - 10.5 mg/dL LAB CHEMISTRY METHOD 02/25/2025 7:53 AM [facility] Blood Venous blood specimen / Unknown Venipuncture / Unknown 02/25/2025 6:00 AM EDT 02/25/2025 6:16 AM EDT us Bryson SAMUELS LAB BLOOD ORDERABLES Fin al Result [facility] [address] [place] [address], * Culture tissue with gram stain (02/24/2025 3:20 PM EDT) Only the most recent of2 resultswithin the time period is included. Culture, Tissue No growth aerobically and anaerobically at 5 days. 03/01/2025 7:21 AM [facility] Gram Stain Result No polymorphonuclear leukocytes, No epithelial cells, and No organisms noted 03/01/2025 7:21 AM [facility] Tissue Structure of upper lobe of right lung / Unknown 02/24/2025 3:20 PM EDT 02/24/2025 3:43 PM EDT us Jammie Jones MD LAB MICROBIOLOGY - GENERAL ORDER DOMINIC Final Result [facility] ([facility]) [facility] [address] [place] [address], [place] [phone] * Concentration (02/24/2025 3:20 PM EDT) AFB Concentration Performed 6:05 PM EDT [facility] Tissue Structure of upper lobe of right lung / Unknown 02/24/2025 3:20 PM EDT 02/24/2025 3:43 PM EDT Narrative [facility] - 04/08/2025 6:05 PM EDT Performed at: [facility] [id number] Delivery Professional: Jennifer Multani MD, Phone: [phone] us Jammie Jones MD LAB BLOOD ORDERABLES Edited Resu lt - Final [facility] * Culture, afb and smear with reflex to identification and susceptibility (02/24/2025 3:20 PM EDT) Only the most recent of2 resultswithin the time period is included. AFB Specimen Processing Concentration 04/08/2025 6:05 PM EDT [facility] Acid Fast Smear Negative 04/08/2025 6:05 PM EDT [facility] Acid Fast Culture Negative 04/08/2025 6:05 PM EDT [facility] Comment:No acid fast bacilli isolated after 6 weeks. Tissue Structure of upper lobe of right lung / Unknown 02/24/2025 3:20 PM EDT 02/24/2025 3:43 PM EDT Narrative [facility] - 04/08/2025 6:05 PM EDT Performed at: - [facility] [id number] Delivery Professional: Jennifer Multani MD, Phone: [phone] Jammie Jones MD LAB MICROBIOLOGY - GENERAL ORDER DOMINIC Final Result Performing Organization Address City/[facility]/ZIP Co de Phone Number [facility] * Acid fast bacilli stain (02/24/2025 3:20 PM EDT) Only the most recent of2 resultswithin the time period is included. AFB Stain Result No Acid fast bacilli seen on direct smear (Fuchsin method, 1000x) No Acid Fast Bacilli seen on direct smear 02/24/2025 10:45 PM EDT [facility] Tissue Structure of upper lobe of right lung / Unknown 02/24/2025 3:20 PM EDT 02/24/2025 3:43 PM EDT Jammie Jones MD LAB MICROBIOLOGY - GENERAL ORDER DOMINIC Final Result Performing Organization Address [facility] Co de Phone Number [facility] [address] [place] [address], [place] [phone] * Culture fungal, other (02/24/2025 3:20 PM EDT) Only the most recent of2 resultswithin the time period is included. Culture, Fungus Negative for Fungus after 4 Weeks 03/23/2025 9:47 AM EDT [facility] Tissue Structure of upper lobe of right lung / Unknown 02/24/2025 3:20 PM EDT 02/24/2025 3:43 PM EDT us Jammie Jones MD LAB MICROBIOLOGY - GENERAL ORDER DOMINIC Final Result Performing Organization Address [facility] Co de Phone Number [facility] [address] [place] [address], [place] [phone] * Tissue grind, digestion and deconvolution (02/24/2025 2:57 PM EDT) Tissue Grind/Digestio n/Decon Performed 04/08/2025 6:05 PM EDT [facility] Tissue Structure of upper lobe of right lung / Unknown 02/24/2025 2:57 PM EDT 02/24/2025 3:43 PM EDT Narrative [facility] - 04/08/2025 6:05 PM EDT Performed at: 01 - [facility] [id number] Delivery Professional: Jennifer Multani MD, Phone: [phone] us Jammie Jones MD LAB PATHOLOGY ORDERABLES Edited Result - Final [facility] * Tissue exam (02/24/2025 1:16 PM EDT) Final Diagnosis A. Bronchus, endobronchial Biopsy: Benign fragments of respiratory epithelium and bronchial wall. No dysplasia, neoplasia, or lesion identified. B. Lung, Right Upper Lobe, wedge: Granuloma with focal necrosis. No infectious etiology identified. C. Lung, Right Upper Lobe, wedge #2: Necrotizing granuloma. No infectious etiology identified. D. Lymph Node, Level 8, Right: One benign lymph node, negative for metastatic carcinoma (0/1). E. Lymph Node, level 7: One benign lymph node, negative for metastatic carcinoma (0/1). F. Lymph Node, r4: One benign lymph node, negative for metastatic carcinoma (0/1). G. 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 Tumor abuts but does not involve the pleura. Lepidic component extends to inked parenchymal margin. AJCC 8th ed. pT1cN0. 4:02 PM EDT [facility] ([facility]) [facility] at 1602 EDT Comment No infectious organisms are identified on routine stains. Because of presence of large granulomata with areas of necrosis, special stains for acid-fast bacilli and GMS for fungus are performed (B3, C2, and C3) and are interpreted as negative, supporting the above diagnoses. Control stains appropriately. No metastatic carcinoma is identified on routine stains in the lymph nodes. To exclude occult metastasis, Cytokeratin Ovidio is performed on blocks D1, E1, F1, and is interpreted as negative for metastatic adenocarcinoma, supporting the above diagnosis. Controls stain appropriately. The tumor present in part G grossly and microscopically extends from the pleura to the inked margin. An elastin stain is performed, which highlights intact elastic layer; negative for pleural invasion. Control stains appropriately. 4:02 PM EDT [facility] ([facility]) [facility] Synoptic Checklist LUNG LUNG - C, D, E, F, G AJCC 9 - Protocol posted: 06/18/2024 SPECIMEN Procedure: Segmentectomy Specimen Laterality: Right TUMOR Tumor Focality: Single focus Tumor Site: Lower lobe of lung Tumor Size: Invasive Tumor Size: Greatest Dimension (Centimeters): 2.5 cm Total Tumor Size: Greatest Dimension (Centimeters): 2.7 cm Histologic Type: Invasive acinar adenocarcinoma Histologic Patterns: Acinar: 80 Histologic Patterns: Lepidic: 20 Histologic Grade: G2, moderately differentiated Spread Through Air Spaces (NICO): Not identified Visceral Pleura Invasion: Not identified Direct Invasion of Other Structures: Not applicable (no other structures present) Treatment Effect: No known presurgical therapy Lymphatic and / or Vascular Invasion: Not identified MARGINS Margin Status for Invasive Tumor: All margins negative for invasive tumor Closest Margin(s) to Invasive Tumor: Parenchymal Distance from Invasive Tumor to Closest Margin: 0.3 cm Margin Status for Non-Invasive Tumor: Lepidic component of invasive carcinoma present at parenchymal margin REGIONAL LYMPH NODES Lymph Node(s) from Prior Procedures: No known prior lymph node sampling performed Regional Lymph Node Status: : All regional lymph nodes negative for tumor Number of Lymph Nodes Examined: 3 Laura Site(s) Examined: 4R: Lower paratracheal Laura Site(s) Examined: 8R: Para-esophageal (below carlos) Laura Site(s) Examined: 7: Subcarinal pTNM CLASSIFICATION (AJCC Version 9) Reporting of pT, pN, and (when applicable) pM categories is based on information available to the pathologist at the time the report is issued. As per the AJCC (Chapter 1, 8th Ed.) it is the managing physician's responsibility to establish the final pathologic stage based upon all pertinent information, including but potentially not limited to this pathology report. pT Category: pT1c pN Category: pN0 ADDITIONAL FINDINGS Additional Findings: Granulomatous inflammation 5 4:02 PM EDT [facility] ([facility]) [facility] Gross Description A. Bronchus, endobronchial Biopsy: Labeled Endobronc bronchus . Received in formalin are four soft to friable, friend-pink to red tissue fragments measuring approximately 0.15 cm in greatest diameter, which are wrapped in paper and submitted in toto in two cassettes, two pieces each (one H&E, +6 unstained slides and one H&E), conserving tissue). A touch preparation is made. TS B. Lung, Right Upper Lobe, wedge: Labeled lung RUL . Received fresh for frozen section is a 16 gram, 6.7 x 3.3 x 2.2 cm wedge resection. The pleural surface is friend najera-brown, anthracotic, and focally fibrotic. There is a 2.1 x 1.1 x 0.4 cm friend-yellow, firm-rubbery mass, which abuts the pleura, and is 0.4 cm to the parenchymal margin, which is inked black. No other masses are identified. The remaining lung parenchyma is friend-najera brown and spongiform. Lymph nodes are absent. The lung is inflated with formalin after frozen section. Manager [place] sections are submitted in four cassettes. 1-frozen tissue residue, one piece 2-stapled margin, inked black, taken perpendicularly, one piece 3-mass, one piece 4-5-random uninvolved, one piece each C. Lung, Right Upper Lobe, wedge #2: Labeled Wedge #2 Lung RUL . Received fresh for frozen section is a 7 gram, 5.1 x 1.9 x 1.6 cm wedge resection. The pleural surface is friend-najera brown, anthracotic, and focally fibrotic. There is a 0.7 x 0.4 x 0.4 cm firm, white mass that abuts the pleura, and is 0.1 cm to the parenchymal margin, which is inked green. The remaining parenchyma is friend-red and spongiform. No other nodules are identified. Lymph nodes are absent. Manager [place] sections are submitted in four cassettes. 1-frozen tissue residue, one piece 2-mass to include staple margin, inked green, one piece 3-4-random uninvolved, one piece each D. Lymph Node, Level 8, Right: Labeled Level 8L lymph node . Received in formalin is one focally anthracotic, friend-najera brown, 1 x 0.4 x 0.2 cm portion of laura tissue, with minimal adipose attached, which is bisected, wrapped in paper, submitted in entirety, in one cassette, two pieces. E. Lymph Node, level 7: Labeled level 7 L lymph node . Received in formalin is one focally anthracotic, friend-najera brown, 0.5 x 0.3 x 0.2 cm portion of laura tissue, with minimal adipose attached, which is wrapped in paper, submitted in toto, in one cassette, one piece. F. Lymph Node, r4: Labeled R4 lymph lymph node . Received in formalin is one focally anthracotic, friend-najera brown, 0.5 x 0.2 x 0.2 cm portion of laura tissue, with minimal adipose attached, which is wrapped in paper, submitted in toto, in one cassette, one piece. G. Lung, Right Lower Lobe, superior segment: Labeled Superior Lung RLL . Received in formalin is a 29 gram, 8.1 x 5 x 2.2 cm segment of lung with a linear stapled margin. The pleural surface is friend-najera brown, anthracotic, and fibrotic with adhesions. There is a a 2.9 cm in greatest diameter area of disruption, which is inked yellow. The cut surfaces show a 2.5 x 2.5 x 1.5 cm firm, white mass that abuts the pleura and stapled margin. The mass also involves the disrupted pleural surface. The remaining parenchyma is friend-red and spongiform. No other masses are palpably or grossly identified. Lymph nodes are absent. The stapled margin is removed and inked blue. The pleura is inked green. The lung is inflated with formalin. A digital gross photograph is taken. Manager [place] sections are submitted in seven cassettes: 1-4-mass to include pleura, parenchymal margin, and area of focal disruption, one piece each 5-adjacent uninvolved, one piece 6-7 random uninvolved, one piece each 5 4:02 PM EDT [facility] ([facility]) [facility] Intraoperative Consultation A. Bronchus, endobronchial Biopsy: TP of bronchial nodules. No malignancy identified. Mucin, acute inflammatory cells, and benign bronchial cells identified. Dr. Ji reviewed with Dr. Jones 02/24/25 at 1:25pm. B. Lung, Right Upper Lobe, wedge: Granuloma Dr. Ji communicated with Dr. Jones 02/24/25 3:20 PM EDT C. Lung, Right Upper Lobe, wedge #2: Necrotizing granuloma Dr. Chambers discussed with Dr. Jones at 15:40 on 02/24/25. 4:02 PM EDT [facility] Disclaimer NOTE: The immunohistochemical tests and in situ hybridization tests were developed and their performance characteristics were determined by [facility]. They have not been cleared or approved by the U.S. Food and Drug Administration. The FDA has determined that such clearance or approval is not necessary. These tests are used for clinical purposes. They should not be regarded as investigational or for research. This laboratory is certified under the Clinical Laboratory Improvement Amendments of 1988 (CLIA) as qualified to perform high complexity clinical laboratory testing. (controls appropriate) Unless otherwise specified, all tissue is 10% NB formalin fixed and paraffin embedded. 4:02 PM EDT [facility] Tissue Bronchial structure / Unknown 02/24/2025 1:16 PM EDT 02/24/2025 1:27 PM EDT Tissue specimen (specimen) Structure of upper lobe of right lung / Unknown 02/24/2025 2:55 PM EDT 02/24/2025 3:08 PM EDT Tissue specimen (specimen) Structure of upper lobe of right lung / Unknown 02/24/2025 3:16 PM EDT 02/24/2025 3:32 PM EDT Tissue specimen (specimen) Lymph node specimen / Unknown 02/24/2025 3:39 PM EDT 02/25/2025 5:50 AM EDT Tissue specimen (specimen) Lymph node specimen / Unknown 02/24/2025 3:47 PM EDT 02/25/2025 5:50 AM EDT Tissue specimen (specimen) Lymph node specimen / Unknown 02/24/2025 3:48 PM EDT 02/25/2025 5:50 AM EDT Tissue specimen (specimen) Structure of lower lobe of right lung / Unknown 02/24/2025 4:07 PM EDT 02/25/2025 5:50 AM EDT Jammie Jones MD LAB PATHOLOGY ORDERABLES Final R esult [facility] [address] [place] [address], [place] [phone] * TH AN ENDOTRACHEAL(NO CHARGE) (02/24/2025 1:02 PM EDT) Alistair Arellano MD - 02/24/2025 1:02 PM EDT Alistair Zamora MD 02/24/2025 1:03 PM General Information and Staff Patient location during procedure: OR Performed by: Alistair Zamora MD Authorized by: Alistair Zamora MD Intubation Airway not difficult Urgency: elective Final Airway Details Successful airway: ETT Cuffed: yes Successful intubation technique: direct laryngoscopy Facilitating devices/methods: anterior pressure/BURP Endotracheal tube insertion site: oral Blade: Jan Blade size: #3 ETT size (mm): 8.5 Cormack-Lehane Classification: grade III - view of epiglottis only Placement verified by: chest auscultation, capnometry and palpation of cuff Measured from: gums ETT to gums (cm): 22 Number of attempts at approach: 1 Ventilation between attempts: none Number of other approaches attempted: 0Final airway type: endotracheal airway Indications and Patient Condition Indications for airway management: anesthesia Spontaneous Ventilation: absent Sedation level: Yes Preoxygenated: yes Soft Tissue Damage: No Dentition Unchanged: Yes Patient position: neutral MILS maintained throughout Mask difficulty assessment: 2 - vent by mask + OA or adjuvant +/- NMBA us Alistair Zamora MD ANESTHESIA ORDERABLES Final Re sult * TH AN ARTERIAL LINE (CHARGE) (02/24/2025 12:54 PM EDT) Alistair Arellano MD - 02/24/2025 12:54 PM EDT Alistair Zamora MD 02/24/2025 12:54 PM Arterial Line Performed by: Alistair Zamora MD Authorized by: Alistair Zamora MD Consent: Verbal consent obtained. Written consent obtained. Risks and benefits: risks, benefits and alternatives were discussed Consent given by: patient Patient understanding: patient states understanding of the procedure being performed Patient consent: the patient's understanding of the procedure matches consent given Required items: required blood products, implants, devices, and special equipment available Patient identity confirmed: arm band Time out: Immediately prior to procedure a time out was called to verify the correct patient, procedure, equipment, child support agent and site/side marked as required. Preparation: Patient was prepped and draped in the usual sterile fashion. Location: right radial Sedation: Patient sedated: yes Analgesia: see MAR for details Vitals: Vital signs were monitored during sedation. Xander's test normal: yes Needle gauge: 20 Post-procedure: dressing applied Patient tolerance: patient tolerated the procedure well with no immediate complications Staffing Resident/CHLORINE OPERATOR: Matt Butts CHLORINE OPERATOR us Alistair Zamora MD ANESTHESIA ORDERABLES Final Re sult from Last 3 Months Insurance MEDICARE [facility] Advance Directives * Full Code - Default (Latest Code Status on File) Date Activated Date Inactivated Comments 02/24/2025 4:57 PM 02/26/2025 5:16 PM This is orde r is used when code status has not been discussed with the patient, or code status is otherwise unknown/unconfirmed To update the patient's code status, place a code status order. Do not modify or discontinue any currently active code status orders. * Full Code - Default Date Activated Date Inactivated Comments 02/24/2025 10:12 AM 02/24/2025 4:57 PM This is ord er is used when code status has not been discussed with the patient, or code status is otherwise unknown/unconfirmed To update the patient's code status, place a code status order. Do not modify or discontinue any currently active code status orders. Care Teams Podiatry Teacher Relationship Specialty Start Date End Date Yaneli James MD [address] [place] [id number] PCP - General 11/12/14
== END 2025-05-25 11:07 | disposition home or self-care (01) ==
PROVIDERS: PCP Internal Medicine; Visit Provider Physician Assistant Medical
DX: R30.0 Dysuria (principal); Z13.9 Encounter for screening, unspecified

== ENCOUNTER 2025-05-25 10:04 | Outpatient (REF) | payer MEDICARE, BC, SELFPAY | END 2025-05-25 10:05 | disposition home or self-care (01) | LOC: HO.LAB 10:04 | PROVIDERS: PCP Internal Medicine; Visit Provider Physician Assistant Medical | DX: N39.0 Urinary tract infection, site not specified (principal); R30.0 Dysuria | CPT/HCPCS: 81003; 87086; 87088; 87186; 99212 ==

== ENCOUNTER 2025-06-29 09:45 | Outpatient (REF) | payer MEDICARE, BC, SELFPAY ==
--- NOTE | ~2025-06-29 | XR_ITS ---
EXAMINATION: XR CHEST 2 VIEWS HISTORY: R05.3 - Chronic cough COMPARISON: Comparison is made with the prior examination dated 06/12/2022. FINDINGS: PA and lateral views of the chest are submitted. The lungs remain hyperinflated, consistent with COPD. There are areas of scarring bilaterally, right greater than left. There is pleural thickening at the right lung base. There is no pleural effusion, pneumothorax, or pulmonary vascular congestion. The heart is normal in size. There is degenerative disc disease of the spine. XR/XR chest 2V IMPRESSION: COPD. Multifocal pulmonary scarring. Electronically signed by: Mike Craig MD 06/29/2025 12:00 PM [facility]
== END 2025-06-29 09:46 | disposition home or self-care (01) ==
LOC: HO.XRAY 09:45
PROVIDERS: PCP Internal Medicine; Visit Provider Hospitalist
DX: R91.8 Other nonspecific abnormal finding of lung field (principal); J47.9 Bronchiectasis, uncomplicated; J84.9 Interstitial pulmonary disease, unspecified; M35.9 Systemic involvement of connective tissue, unspecified; R13.19 Other dysphagia; M35.02 Sjogren syndrome with lung involvement; A31.9 Mycobacterial infection, unspecified; C34.90 Malignant neoplasm of unspecified part of unspecified bronchus or lung; R05.3 Chronic cough; Z79.899 Other long term (current) drug therapy
CPT/HCPCS: 71046; 99212

== ENCOUNTER 2025-06-29 09:45 | Outpatient (AMB) | payer MEDICARE, BC, SELFPAY ==
[2025-06-29 09:50] VITALS: BP 118/50; PULSE 79; O2SAT 97
--- NOTE | 2025-06-29 09:50 | A.OFFVIS_ITS ---
Vital Signs 06/29/25 09:50 Height 5 ft 6 in BMI Reason not done Patient refused/unable BP 118/50 L Blood Pressure Location Lt brachial Position Sitting Pulse 79 Pulse Source Pulse Oximeter Pulse Oximetry (%) 97 Oxygen Delivery Method Room Air Intake Visit Reasons: cough Manufacturing Controller Required: No Accompanied by: Spouse Allergies levofloxacin (Levaquin) Allergy (Unknown, Verified 06/29/25 09:53) rash Sulfa (Sulfonamide Antibiotics) Allergy (Unknown, Verified 06/29/25 09:53) very sick sulfacetamide Allergy (Unknown, Verified 06/29/25 09:53) very sick tetracycline Allergy (Unknown, Verified 06/29/25 09:53) rash HPI Comments Details: The patient is an 84-year-old woman presenting with abnormal CT scan of the chest. The patient states many years ago she was evaluated at [facility] for a connective tissue disease. At the time was not clear if this was a mixed connective tissue condition. Her symptoms however improved dramatically and the patient did not require any more follow-up. More recently since 2020 the patient started developing worsening cough, nonproductive in nature in the mor soila mild in severity and subsequently in the evening she will notice and also some coughing. But he did really limit her respiratory capacity and her activities of daily living. She did follow-up with her primary care doctor and she did comment on the cough and she had an x-ray done back in May that was found to be abnormal with some bronchitis looking airways with peribronchial coughing and also some nodular densities. Patient had a repeat chest x-ray after treating her with antibiotics and showed some improvement of the peribronchial coughing, but, she still had the nodular densities in some interstitial changes. Therefore the patient underwent a CT scan of the chest at [facility] which we personally reviewed. The CT scan was pretty involved with significant reticulonodular densities in the periphery consistent with pulmonary fibrosis affecting her left lung more than her right lung in the briefly but also in the bases. In addition to this the patient had evidence of bronchiectasis tree in bud in addition to this nodular densities on her right lung more than the left. The etiology of these nodular densities some clear at this time although smoldering infections is in the differential. On further questioning she denies any mold in the house. She has had a CT in the past but nothing recent. She does have allergies to pollen sometimes. She has an al lergy testing. The patient denies any other exposures to fumes or toxins although she lived in a house of smokers and had significant secondhand smoke to she left her home. She does complain of some difficulty swallowing. On her CT scan with his see dilations of the esophagus. She also has a small mouth in addition to Raynaud's phenomenon although the related to potential connective tissue conditions. She will require additional blood work and also a sputum culture for AFB to assess her for non tuberculosis mycobacterial infections. 12/14/2022 the patient is here for a pulmonary follow-up visit. The patient overall is doing about the same. Continues to have issues with cough. Typically nonproductive in nature worse in the morning. We were able to get a sputum for AFB which was negative. She could not get a sample good enough for sputum culture for Gram stain. Patient did have a repeat CT scan of the chest again demonstrating the pulmonary nodules and also the reticular changes consistent pulmonary fibrosis. No significant changes when compared to her CT scan from August. The patient also had blood work demonstrating the positive SHIVA and subsequently positive Sjogren's antibodies. With a positive SSA. The patient does complaint of dry eyes and dry mouth. She does not have a diet supervisor at this time. 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 Therefore is reasonable to start treating her with Plaquenil. At least there is no evidence of any ground-glass opacities or evidence of active disease. Some of the nodular densities however appear to be more infectious in appearance. Although she has a negative AFB culture this is usually not enough. We did talk about a bronchoscopy the patient is not interested at this time. Will plan to repeat the sputum culture. If the sputum culture continues to be negative if the patient does need to start immunosuppressive therapy then at point I would make a point to try to get deep cultures to rule out infection and avoid worsening smoldering infections on immunosuppressive therapy. In addition to this the patient is having a difficulty time swallowing. I heard the esophagus is a dilated on her CT scan again. This suggests some degree of dysmotility or achalasia. 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 03/16/2023 the patient is here for pulmonary follow-up visit. She continues to be about the same. Does have a nonproductive cough intermittently. Mild in severity. 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 Her barium swallows indeed it appeared that she had tertiary contractions but also the barium became stagnant midesophagus. She states that her GI doctor retired. Will send her to a GI doctor for the same practice since she already has records there. The patient also had sputum cultures sent for AFB and which was positive. She has non tuberculosis mycobacterial disease which goes along with her significant bronchiectasis. She also has interstitial lung disease noted on her CT scan her. May be multifactorial. The patient will be provided with an Acapella valve. Will help her to learn how to use it this will provide her some relief of mucous plugging and hopefully provide us with a better sample. Will hold off on treating the mycobacterial disease as of yet specially since be very difficult for the patient to tolerate the therapy. Will go ahead and request a 2nd sputum to confirm the findings and also will request a repeat CT scan to address her significant pulmonary nodules interstitial lung disease. 06/13/2023 the patient is here for a pulmonary follow-up visit. Overall the patient has been doing little better. She did get the Acapella valve and she aponte s been using it. She has been able to expectorate a lot better. She has been able to clear her lungs more. Denies any shortness breath or any other issues. The patient did have a repeat CT scan of the chest demonstrating stable interstitial lung changes consistent with some degree of pulmonary fibrosis primarily the periphery in the basis in addition to waxing waning pulmonary nodules consistent with her likely mycobacterial disease. Will try to get another sputum culture. He right now will not treat her mycobacterial disease unless her symptoms worsen or if her CT scan worsens. Date fibrotic changes are also stable. I do believe that they are secondary to a connective tissue disease process. If there is any evidence of any activity of the connective tissue disease that should be treated to minimize on the pulmonary manifestations. 01/17/2024 the patient is here for a pulmonary follow-up visit. Overall the patient has been feeling better. She has been monitoring closely her reflux diet and she has following the reflux precautions. She is sleeping with the wedge pillow. This has been helpful. Her chest congestion is decreased. She does use the Acapella valve. We did review her last CT scan of the chest done in 05/28/2023 with significant interstitial lung disease pulmonary nodules and bronchiectatic changes along with mucus plugging. Will plan to repeat the CT scan sometime in the winter. We did review her CT scan of the chest also demonstrating the dilated esophagus. She will be careful with her swallow. We talked about alternate solids and liquids. The patient already has small meals and bites. Therefore, she continues to do well will have her get a CT scan and follow-up sometime in the early spring of 2024. If he has any new issues she will call for an earlier is . 09/09/2024 the patient is here for a pulmonary follow-up visit. Overall she is doing well denies any shortness of breath or cough denies any weight loss or night sweats. She did have a CT scan of the chest and we did reviewed. I also did review the CT scan she had back in 05/28/2023. Both were done at [facility]. Seems that she has progressive disease for both the interstitial disease in the periphery of the lungs in addition to that some nodular densities primarily in the right hemithorax. There is 1 nodule that measures about 1.2 cm in size. There appears to be a separate entity and therefore need to consider the possibility of scar tumor or a malignant process and may be growing amongst interstitial process. She has another nodular ill-defined patchy density also in the right lower lobe. Patient also has evidence of bronchiectasis. I do not appreciate a dilation of the esophagus are she had before. In view of the 1.2 cm nodular density indeed malignancies in differential. Will going to go ahead and request a PET scan to better address this nodule and see if we should move along with the biopsy. In the meantime will treated with azithromycin 3 times a week for the non tuberculosis mycobacterial disease to decrease any significant burden of disease prior to the PET scan. Will follow-up in 3 months but will talk after the PET scan. She understands that if the PET scan is significantly abnormal we need to look into a performing a biopsy. Likely a CT-guided biopsy based on the location of this nodule. If she has any issues prior to that will call for an earlier evaluation. 11/10/2024 the patient is here for pulmonary follow-up visit. Overall the patient has been doing well. Denies any significant weight loss or night sweats or decreased appetite. She did complete the antibiotics 3 times a week as prescribed as a treatment empirically for smoldering infection such as mycobacterium disease. Ultimately underwent a PET scan more recently that we personally reviewed together. We also looked at a CAT scan previously to the PET scan back in August and also looked at a CT scan she had back in May 2024. The patient does have some FDG activity of the pulmonary nodules although mild between 2 - 3 maximum SUV FDG activity. Based on the fact that the pulmonary nodules appear to be progressing primarily in the right hemithorax when compared to 2022 my inclination is to recommend a biopsy this time. Although the activities mild the nodules look abnormal. They also did not respond to the antibiotic empiric therapy. The patient is agreeable to a biopsy. She is going to be going on a trip to [place] and when she comes back will plan to do a biopsy at [facility] as per her preference. The patient follow-up after the biopsy with us to review the results. 01/29/2025 the patient is here for pulmonary follow-up visit. 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 Based on the PET there is no other significant activity so therefore appears to be an isolated pulmonary malignant process. She did undergo pulmonary function studies demonstrating normal lung capacity which is reassuring. And today she will be seen a thoracic surgeon regarding the possibility of a lung resection with curative intent. I did answer all her questions. From a respiratory status the patient is doing well. Will plan to follow-up in 3-4 months. If she has any issues prior to this she will call for any questions. 06/29/2025 the patient is here for pulmonary follow-up visit. The patient did undergo surgery back in February. The patient had surgery with curative intent for lung cancer. She is recovering well. Although a few weeks after she started developing hacky cough. Nonproductive in nature. Moderate severity. Worsening when she lays flat were inclined position. She does have some degree of dyspepsia. She has been taking Pepcid 20 mg. Denies any significant postnasal drip. She does have some crackles in the right base suggesting some degree of atelectasis and also surgical changes. She did undergo a chest x-ray which I personally reviewed demonstrating the postoperative changes bit of scarring. But no evidence of any effusions or any significant atelectasis. Therefore, she is going to work on deep breathing exercises. The patient also will try some Bentson Toñito as needed and also will start a higher dose of Pepcid of 40 mg. She is scheduled for CAT scan sometime in September. She will monitor closely her symptoms. If her cough does not improve then she can always call for further recommendations. [facility] Medical History (Updated 06/29/25 @ 10:03 by Danilo Farnsworth MD) Chronic cough Pulmonary nodule 1 cm or greater in diameter Mycobacterial disease Screening for viral disease Dysphagia ILD (interstitial lung disease) Annual physical exam Abnormal mammogram of right breast Mitral regurgitation Aortic insufficiency Normal colonoscopy Mammogram normal Hair loss Fatigue Skin cancer, basal cell History of mammogram H/O bone density study Osteoporosis Thrombophlebitis Atrophic vaginitis Palpitations Surgical History H/O colonoscopy No pertinent past surgical history Family History Father No problems noted. Mother No problems noted. Sister Rheumatoid arthritis Sister Hereditary spastic paraplegia Social History Household Members: Spouse Housing: House Alcohol intake: current Alcohol intake frequency: does not drink Patient Tobacco Use Status: Never used Tobacco e-Cigarette/Vaping Use: Never Used service: No Current occupational status: retired Cognitive needs: No Hearing needs: No Vision needs: Yes Review of Systems Const Denies chills, Denies fatigue, Denies fever(s), Denies weight gain and Denies weight loss Eyes Reports dry eyes ENT Denies dizziness Card Denies chest pain, Denies leg edema, Denies lightheadedness, Denies palpitations, Denies dyspnea on exertion, Denies orthopnea and Denies other Resp Denies chest congestion, Reports cough, Denies dyspnea on exertion and Denies wheezing GI Denies hematochezia and Denies change in stool character Musc Denies abnormal gait, Denies muscle weakness, Denies numbness, Denies radiating pain into limb and Denies tingling Skin/Breast Denies rash Neuro Denies abnormal gait, Denies dizziness, Denies numbness and Denies tingling Endo Denies fatigue and Denies palpitations Valentino/Lymph Denies easy bleeding, Denies easy bruising and Denies lymphadenopathy Aller/Immun Denies wheezing Physical Exam Vital Signs: Last Vital Signs Pulse 79 06/29/25 09:50 BP 118/50 L 06/29/25 09:50 Pulse Ox 97 06/29/25 09:50 Oxygen Delivery Method Room Air 06/29/25 09:50 Const General: no acute distress HEENT Head: Yes normal to inspection Ears: hearing grossly normal bilaterally Neck Neck: Yes no lymphadenopathy and Yes supple Chest Chest palpation & inspection: normal inspection of the chest Resp Effort & Inspection: normal respiratory effort Auscultation: diminished lung sounds Cardio Rhythm: regular rhythm Heart sounds: S1 normal heart sound present and S2 normal heart sound present GI Palpation (GI): Soft to palpation Auscultation: normal bowel sounds Skin General skin exam: no rashes or lesions noted Extrem General: Yes no clubbing, cyanosis or edema and Yes other (sclerodactaly) Assessment & Plan Assessment & Plan (1) Lung nodules: Comment: Chest CT 08/31, 05/2023 waxing and waning Code(s): R91.8 - Other nonspecific abnormal finding of lung field Category: Medical (2) Bronchiectasis: Comment: Stable chest CT, Code(s): J47.9 - Bronchiectasis, uncomplicated Category: Medical Qualifiers: Bronchiectasis type: uncomplicated Qualified Code(s): J47.9 - Bronchiectasis, uncomplicated (3) ILD (interstitial lung disease): Comment: reticular changes in the periphery/basilar. ?CTD related ILD. No progression 08/31 to 05/31, patient is scheduled for a repeat CT of the chest 07/2023 and follows up with Dr. Farnsworth Code(s): J84.9 - Interstitial pulmonary disease, unspecified Category: Medical (4) Connective tissue disease: Code(s): M35.9 - Systemic involvement of connective tissue, unspecified Category: Medical (5) Dysphagia: Code(s): R13.10 - Dysphagia, unspecified Category: Medical Qualifiers: Dysphagia type: esophageal phase Qualified Code(s): R13.19 - Other dysphagia (6) Sjogren's syndrome with lung involvement: Code(s): M35.02 - Sjogren syndrome with lung involvement Category: Medical (7) Mycobacterial disease: Code(s): A31.9 - Mycobacterial infection, unspecified Category: Medical (8) Pulmonary nodule 1 cm or greater in diameter: Code(s): R91.1 - Solitary pulmonary nodule Category: Medical (9) Lung cancer: Code(s): C34.90 - Malignant neoplasm of unspecified part of unspecified bronchus or lung Category: Medical Qualifiers: Laterality: unspecified laterality Lung location: unspecified part of lung Qualified Code(s): C34.90 - Malignant neoplasm of unspecified part of unspecified bronchus or lung (10) Chronic cough: Code(s): R05.3 - Chronic cough Category: Medical Plan CPT with acapella valve BID increase Pepcid 20->40mg reflux diet start Tessalon pearls as needed CXR-post op changes, no atelectasis F/U 3-4 months Orders: Orders XR chest 2V Today C34.90 - Malignant neoplasm of unspecified part of uns pecified bronchus or lung, R05.3 - Chronic cough Medications: New famotidine (Pepcid) 40 mg PO BEDTIME 30 tabs 6RF 30 days benzonatate 200 mg PO BID PRN 30 caps 0RF cough 30 days Coding Level of Care Code Est Pt Level 4 (68484) Diagnoses Lung nodules R91.8 Bronchiectasis without complication J47.9 Bronchiectasis type: uncomplicated ILD (interstitial lung disease) J84.9 Connective tissue disease M35.9 Esophageal dysphagia R13.19 Dysphagia type: esophageal phase Sjogren's syndrome with lung involvement M35.02 Mycobacterial disease A31.9 Pulmonary nodule 1 cm or greater in diameter R91.1 Malignant neoplasm of lung, unspecified laterality, unspecified part of lung C34.90 Laterality: unspecified laterality Lung location: unspecified part of lung Chronic cough R05.3 Time Spent (min) 17
--- OUTSIDE RECORDS SUMMARY | 2025-06-29 11:19 | XMS_ITS | Clinical Summary ---
Author Organization [facility] [address] [facility] Address [address] [place] [address] Phone Care Team Providers Care Home Connect Lpn Name Role Phone Yaneli James MD Primary Care Provider [phone] Allergies Active Allergy Reactions Criticality Noted Date Comments Levofloxacin 01/29/2025 Sulfa (Sulfonamide Antibiotics) 01/07 Sulfacetamide 01/29/2025 Tetracycline 01/29/2025 Medications ascorbic acid (Vitamin C) 1,000 mg tablet Take 0.5 tablets (500 mg total) by mouth 1 (one) time each day. 4 Active CALCIUM CITRATE, BULK, MISC Take 630 mg by mouth. 4 Active omega 5-xiy-kto-fish oil (Fish OiL) 1,000 (120-180) mg capsule [...] valve regurgitation 02/05/2025 Primary cancer of right lower lobe of lung 01/29 Assessment & Plan (03/11/2025 12:32 PM EDT): [...] results. Pulmonary nodule 01/29/2025 Interstitial lung disease 01/29/2025 Encounters Date Type Department Care Team Description 05/04/2025 Telephone Thoracic Surgery - [address] [place] [id number] Tesha Sood MA from Last 3 Months Surgical History Surgery Date Site/Laterality Comments COLONOSCOPY CATARACT EXTRACTION MOUTH SURGERY VEIN SURGERY OTHER SURGICAL HISTORY LUNG BIOPSY OTHER SURGICAL HISTORY 02/24/2025 RLL segmentectomy, RUL wedge Medical History Medical History Date Comments Dysphagia mouth is small Fatigue ILD (interstitial lung disea se) ([facility] V24, [facility] V28) Abnormal mammogram of right breast Aortic insufficiency Hair loss Skin cancer, basal cell llung Osteoporosis Thrombophlebitis Palpitations H/O colonoscopy PONV (postoperative nausea and vomiting) Angina pectoris ([facility] V24) pa lpation Heart disease moderate leaky a ortic valve, mild to mod enlarged aorta Reactive airway disease , cancer of upper pulmonary nodule suspicious an lower cancerous with nodes Shortness of breath minimal Diverticulosis GERD (gastroesophageal reflux disease) Hiatal hernia Heart disease hx of LE clots Sjogren syndrome ([facility] V24) Lung cancer ([facility] V24, [facility] V28) RLL Family History Relation Name Status Comments Father Mother Sister Social History Tobacco Use Types Packs/Day Years Used Date Smoking Tobacco: Former Cigarettes 0 1 964 - 1961 Smokeless Tobacco: Never Tobacco Cessation:Counseling Given: Not [...] this topic Medical Devices Implanted Type Area Child Caregiver Device Identifier Shelf Expiration Date Model / Serial / Lot Sealant Fibrin Vistaseal 10ml - [id number] - [id number] Implanted:Qty : 1 on 02/24/2025 by Jammie Jones MD at [facility] Hemostasis N/A: Chest [employer] [id number] 08/10/2026 [id number] / [id number] / [id number] Sealant Progel Air Pleural 4ml - Sna - [id number] Implanted:Qty : 1 on 02/24/2025 by Jammie Jones MD at [facility] Osteobiologics N/A: Chest CR BARD [employer] [id number] 04/08/2026 [id number] / [id number] / [id number] Insurance MEDICARE [facility] Advance Directives * Full Code - Default (Latest Code Status on File) Date Activated Date Inactivated Comments 02/24/2025 4:57 PM 02/26/2025 5:16 PM This is ord er is used [...] currently active code status orders. Care Teams Home Connect Lpn Relationship Specialty Start Date End Date Yaneli James MD [facility] [place] [address] PCP - General 11/12/14
== END 2025-06-29 10:22 | disposition home or self-care (01) ==
LOC: HO.HPS 09:46
PROVIDERS: PCP Internal Medicine; Visit Provider Hospitalist
DX: R91.8 Other nonspecific abnormal finding of lung field (principal); J47.9 Bronchiectasis, uncomplicated; J84.9 Interstitial pulmonary disease, unspecified; M35.9 Systemic involvement of connective tissue, unspecified; R13.19 Other dysphagia; M35.02 Sjogren syndrome with lung involvement; A31.9 Mycobacterial infection, unspecified; R91.1 Solitary pulmonary nodule; C34.90 Malignant neoplasm of unspecified part of unspecified bronchus or lung; R05.3 Chronic cough
CPT/HCPCS: 99214

== ENCOUNTER → 2025-06-29 10:30 | Outpatient (BNV) | payer MEDICARE, BC, SELFPAY | PROVIDERS: PCP Internal Medicine; Visit Provider Radiology Diagnostic Radiology | DX: J44.9 Chronic obstructive pulmonary disease, unspecified (principal); J98.4 Other disorders of lung | CPT/HCPCS: 71046 ==